=== PATIENT | female | born 1950 | race Caucasian/White ===

== ENCOUNTER 2019-07-23 08:39 | Emergency (ER) | payer MEDICARE, OTHER, SELFPAY ==
--- NOTE | 2019-07-23 08:40 | W.ED.FALL ---
HPI - Fall General: Chief Complaint: Fall Stated Complaint: fall-left hip pain Time Seen by Provider: 07/23/19 08:40 Source: patient and family Mode of arrival: ambulatory Limitations: no limitations History of Present Illness: HPI Narrative: Patient is a 69-year-old female who presents to ED today with complaints of a slip and fall while going down a ramp earlier this morning; she states she injured her left hip; she had a total hip replacement in June of last year by Dr. Haile; patient denies any other injury sustained during the fall; she states she has not been able to be ambulatory since the event MD complaint: fall Onset (ago): hour(s) Fall from: standing Fall witnessed: no Place fall occurred: home Loss of consciousness: None Prolonged down time: no Symptoms prior to fall: none Context: tripped/slipped Location of injury: pelvis (L hip) Associated symptoms-after fall: Denies abdominal pain, chest pain, headache(s), lightheadedness or neck pain Review of Systems Card: Denies: chest pain, palpitations, lightheadedness, syncope or pre-syncope Resp: Denies: shortness of breath GI: Denies: abdominal pain, nausea or vomiting Musc: Reports: joint pain (L hip) and limited range of motion (L hip); Denies: neck pain, back pain, extremity pain, extremity swelling, joint swelling, redness, joint warmth, joint stiffness or muscle weakness Neuro: Denies: headache, numbness in extremities, weakness in extremities or changes in sensation PFSH ED PFSH: Statuses (acute, chronic, etc) shown below reflect problem list status as previously entered and may not be historically accurate Social History Smoking and tobacco status: never smoked Physical Exam Const: COMMON NORMALS: no apparent distress, oriented x3, no limitations, alert and well nourished Neck/C-Spine: COMMON NORMALS: full ROM CERVICAL SPINE: No pain with cervical ROM and No cervical spine tenderness Resp: COMMON NORMALS: normal respiratory effort and clear to auscultation bilaterally AUSCULTATION: clear to auscultation bilaterally Cardio: COMMON NORMALS: regular rate and regular rhythm RATE: regular rate RHYTHM: regular rhythm Extremity: OTHER: pt has tenderness to lateral/posterior L hip; she is able to raise leg off table a few inches; leg is not shortened or rotated; NV intact; no other extremities injured Neuro: COMMON NORMALS: oriented x3 SENSORIUM/ORIENTATION: Yes alert Course Vital Signs: Vital signs: Vital Signs Temperature 97.6 F 07/23/19 08:45 Pulse Rate 76 07/23/19 10:09 Respiratory Rate 18 07/23/19 10:09 Blood Pressure 134/70 07/23/19 10:09 Pulse Oximetry 98 07/23/19 10:09 MDM - Fall MDM Narrative: Medical decision making narrative: I reviewed patient's left hip and pelvis x-ray and compared them to previous and I did not visualize any fractures thus to discharge the patient home; she was ambulatory with a walker upon discharge; after later review the [facility] radiologist read her film as a possible acute nondisplaced fracture through the left hip greater trochanter; I had Dr. Connelly look at the films who also does not see any acute changes from her previous films; I contacted the [facility] radiologist directly who stated he did not have access to those previous films we were viewing thus they were sent to him and he still felt that there was a faint radiolucent line across the greater trochanter which was not present previously-questioned recent fracture versus overlying fat plane and recommended CT scan. Dr. Gudino was cash applications coordinator for orthopedics who also did patient's hip replacement so I contacted her. She said even if the fracture was present, as long as she was ambulatory with a walker there was not anything they were going to do differently as far as management. Did not recommend we call patient back for CT scan. Said she will follow-up with her next week in office. Discharge Plan Discharge Patient Disposition: Home, Self-Care Clinical Impression: Contusion of hip, left Qualifiers: Encounter type: initial encounter Qualified Code(s): S70.02XA - Contusion of left hip, initial encounter Condition: Stable Prescriptions: New hydrocodone-acetaminophen 5-325 mg tablet 1 tab PO Q8H PRN (Reason: pain) Qty: 14 RF: 0 Discharge Orders: Discharge Order (Routine); Ordered 07/23/19 Ordered By: Vesta Boykin Referrals: Mihaela Miguel MD [Primary Care Provider] - Discharge Activity: Increase activity as tolerated and Use walker/crutches as instructed Activity Restrictions/Additional Instructions: Use walker for ambulation over the next 3-5 days or as needed for pain. You may follow up with Dr. Haile next week if pain persists. Discharge Date/Time: 07/23/19 10:10 Coding Level of Care Code ED [employer] Salesperson for Chg Fwd Exam Problem Focused
[2019-07-23 08:45] VITALS: BP 144/76; PULSE 65; RESP 20; TEMP 36.4; O2SAT 96; BMI 41.1
[2019-07-23 08:59] VITALS: BP 137/102; PULSE 65; RESP 18; O2SAT 98
--- NOTE | 2019-07-23 09:02 | PC.NURSE ---
Pt states 0800 she was going to her car to start it and slipped and fell injuring her L hip. Pt has a history of a hip injury and replacement to L hip. no crepitus noted, but pt unable to bear weight. Pt has no shorting or rotation of the LLE. Pulse present in her foor.
--- NOTE | 2019-07-23 09:03 | XRR_ITS ---
PROCEDURE INFORMATION: Exam: XR Left Hip with Pelvis when Performed Exam date and time: 07/23/2019 9:20 AM Age: 69 years old Clinical indication: Injury or trauma; Fall; Initial encounter; Abrasion; Left; Hip; Prior surgery; Surgery date: 6+ months; Additional info: Fall/pain TECHNIQUE: Imaging protocol: XR Left hip with pelvis when performed. Views: 2 or 3 views. COMPARISON: CR Pelvis AP 1 or 2 views* [id number] 07/07/2018 10:05 AM FINDINGS: Bones/joints: Stable left total hip replacement. Moderate to severe multilevel spine degenerative changes including degenerative disc disease, spondylosis and facet degenerative changes. Possible acute nondisplaced fracture through the left hip greater trochanter. Soft tissues: Unremarkable. Organs: Possible previous bladder suspension surgery. Other findings: Levoscoliosis. XR/XR hip LT 2-3V wo/w pel* [id number] IMPRESSION: 1. Stable left total hip replacement. 2. Possible acute nondisplaced fracture through the left hip greater trochanter.
[2019-07-23 09:35] VITALS: BP 134/70; PULSE 134; RESP 18; O2SAT 96
[2019-07-23 10:09] VITALS: BP 134/70; PULSE 76; RESP 18; O2SAT 98
--- NOTE | 2019-07-25 14:14 | DCPLANNER ---
manager drug had message to schedule a follow up appointment for patient with ortho. manager drug called the ortho clinic, spoke with Pat, gave clinic patients information. manager drug was told that patients information would be printed and reviewed. Clinic will call hospice case manager and patient with appointment information.
== END 2019-07-23 10:10 | disposition home or self-care (01) ==
PROVIDERS: Emergency Provider Physician Assistant; Family Provider Family Medicine; PCP Family Medicine
DX: S70.02XA Contusion of left hip, initial encounter (principal); W01.0XXA Fall on same level from slipping, tripping and stumbling without subsequent striking against object, initial encounter; Y92.009 Unspecified place in unspecified non-institutional (private) residence as the place of occurrence of the external cause; Z96.649 Presence of unspecified artificial hip joint
CPT/HCPCS: 73502; 99281; 99282

== ENCOUNTER → 2019-08-01 16:03 | Outpatient (BNVA) | payer MEDICARE, OTHER, SELFPAY | PROVIDERS: Family Provider Family Medicine; PCP Family Medicine; Referring Provider Physician Assistant; Visit Provider Specialist | DX: M25.552 Pain in left hip (principal) | CPT/HCPCS: 73502 ==

== ENCOUNTER → 2019-08-15 08:49 | Outpatient (BNVA) | payer MEDICARE, OTHER, SELFPAY | PROVIDERS: Family Provider Family Medicine; PCP Family Medicine; Visit Provider Internal Medicine Rheumatology | DX: M05.79 Rheumatoid arthritis with rheumatoid factor of multiple sites without organ or systems involvement (principal); Z79.899 Other long term (current) drug therapy; X58.XXXA Exposure to other specified factors, initial encounter; M81.0 Age-related osteoporosis without current pathological fracture; S72.115A Nondisplaced fracture of greater trochanter of left femur, initial encounter for closed fracture; Z79.52 Long term (current) use of systemic steroids; M05.9 Rheumatoid arthritis with rheumatoid factor, unspecified; M19.041 Primary osteoarthritis, right hand | CPT/HCPCS: 36415; 73130; 73630; 77080; 80076; 82306; 82565; 85025; 85651; 86140; 99214 ==

== ENCOUNTER → 2019-08-15 09:37 | Outpatient (BNVA) | payer MEDICARE, OTHER, SELFPAY | PROVIDERS: Family Provider Family Medicine; PCP Family Medicine; Visit Provider Internal Medicine Rheumatology | DX: Z79.899 Other long term (current) drug therapy (principal); M81.0 Age-related osteoporosis without current pathological fracture; M05.79 Rheumatoid arthritis with rheumatoid factor of multiple sites without organ or systems involvement; S72.115A Nondisplaced fracture of greater trochanter of left femur, initial encounter for closed fracture; X58.XXXA Exposure to other specified factors, initial encounter; M19.071 Primary osteoarthritis, right ankle and foot; M19.072 Primary osteoarthritis, left ankle and foot | CPT/HCPCS: 85025 ==

== ENCOUNTER 2019-08-15 10:04 | Outpatient (CLI) | payer MEDICARE, OTHER, SELFPAY ==
--- NOTE | 2019-08-15 10:26 | XR_ITS ---
WS: [id number] RIGHT HAND: 3 VIEW(S) TECHNIQUE: PA, oblique and lateral. HISTORY: arthritis COMPARISON: 12/28/2015 No acute fracture or dislocation. Very minimal narrowing of the interphalangeal joints. No subluxation. No erosions at the metacarpal h irineo or ulnar styloid. Slight volume loss in the lunate is similar to the prior study was cystic areas. Joint space narrowin g between the scaphoid, trapezium and trapezoid. XR/XR hand RT min 3V* [id number] IMPRESSION: Mild osteoarthritis.
--- NOTE | 2019-08-15 10:26 | XR_ITS ---
WS: [id number] DEXA (DUAL ENERGY X-RAY ABSORPTIOMETRY) Bone mineral density was performed using a [employer] machine. HISTORY: osteoporosis COMPARISON: None available. Lumbar spine BMD (L1-L4): 1.010 g/cm2 T score: -1.4 Z score: -0.9 Total hip BMD: Right: 0.838. T score: -1.3 Z score: -0.7 Left forearm BMD: 0.877 g/cm2. T score: 0.0 Z score: 1.7 10 year probability of a major osteoporotic fracture is 26%. XR/XR DEXA axial skeleton* [id number] IMPRESSION: OSTEOPENIA based upon the WHO classification for females.
--- NOTE | 2019-08-15 10:26 | XR_ITS ---
WS: [id number] LEFT FOOT: 3 VIEW(S) TECHNIQUE: PA, oblique and lateral. HISTORY: Rheumatoid arthritis. COMPARISON: 12/28/2015 Mild narrowing of the first metatarsophalangeal joint. No erosions at the metatarsal heads or subluxa tion. No significant osteopenia. No fracture. Normal tarsal/metatarsal alignment. No soft tissue abnormality or bone destruction. XR/XR foot LT min 3V* [id number] IMPRESSION: 1. No osseous erosions. 2. Mild degenerative changes at the first metatarsophalangeal joint.
--- NOTE | 2019-08-15 10:26 | XR_ITS ---
WS: [id number] LEFT HAND: 3 VIEW(S) TECHNIQUE: PA, oblique and lateral. HISTORY: arthritis COMPARISON: 12/28/2015 No acute fracture or dislocation. Mild interphalangeal joint space narrowing. No metacarpal head erosions. No erosion of the ulnar styl oid. XR/XR hand LT min 3V* [id number] IMPRESSION: No evidence for inflammatory arthropathy. Similar appearance of the hand as com pared to 12/28/2015.
--- NOTE | 2019-08-15 10:26 | XR_ITS ---
WS: [id number] RIGHT FOOT: 3 VIEW(S) TECHNIQUE: PA, oblique and lateral. HISTORY: arthritis COMPARISON: 12/28/2015 No acute fracture or dislocation. Normal tarsal/metatarsal alignment. Severe degenerative changes at the first metatarsophalangeal joint. Joint space narrowing with sclero sis and irregularity. Mild narrowing of the interphalangeal joints. No erosions at the metatarsal hea ds. XR/XR foot RT min 3V* [id number] IMPRESSION: Severe osteoarthritis at the first metatarsophalangeal joint with mild progress ion since 2015.
== END 2019-08-15 10:05 | disposition home or self-care (01) ==
LOC: RADWPI 10:09
PROVIDERS: Family Provider Family Medicine; PCP Family Medicine; Visit Provider Internal Medicine Rheumatology
DX: M05.9 Rheumatoid arthritis with rheumatoid factor, unspecified (principal); M81.0 Age-related osteoporosis without current pathological fracture; Z79.899 Other long term (current) drug therapy; M19.041 Primary osteoarthritis, right hand; M19.071 Primary osteoarthritis, right ankle and foot; M19.072 Primary osteoarthritis, left ankle and foot
CPT/HCPCS: 73130; 73630; 77080; 80076; 82306; 82565; 85651; 86140

== ENCOUNTER → 2019-08-29 13:22 | Outpatient (BNVA) | payer MEDICARE, OTHER, SELFPAY | PROVIDERS: Family Provider Family Medicine; PCP Family Medicine; Visit Provider Specialist | DX: S72.115A Nondisplaced fracture of greater trochanter of left femur, initial encounter for closed fracture (principal); X58.XXXA Exposure to other specified factors, initial encounter; Z96.641 Presence of right artificial hip joint | CPT/HCPCS: 73502 ==

== ENCOUNTER 2019-08-29 14:14 | Outpatient (CLI) | payer MEDICARE, OTHER, SELFPAY ==
[2019-08-29 15:02] LABS: Basophils # 0.1 10^3/uL (0.0-0.1); Eosinophils # 0.1 10^3/uL (0.0-0.8); Eosinophils % 1.6 %; Hematocrit 40.7 % (37.0-47.0); Hemoglobin 12.9 g/dL (11.5-15.3); Lymphocytes # 1.4 10^3/uL (0.8-4.8); Lymphocytes % 26.9 %; Mean Corpuscular HGB Conc 31.7 g/dL (30.0-36.0); Mean Corpuscular Hemoglobin 29.4 pg (28.0-34.0); Mean Corpuscular Volume 92.7 fL (81-99); Mean Platelet Volume 11.2 fL (7.4-10.4); Monocytes # 0.6 10^3/uL (0.2-0.9); Monocytes % 10.7 %; Neutrophils # 3.1 10^3/uL (1.8-7.7); Neutrophils % 59.8 %; Nucleated Red Blood Cells % 0 %; Platelet Count 154 10^3/cmm (130-400); Red Blood Count 4.39 10^6/uL (4.1-5.3); White Blood Count 5.2 10^3/uL (4.0-10.0)
[2019-08-29 15:18] LABS: 25 Hydroxy Vitamin D 26 ng/mL (30-100)
[2019-08-29 15:37] LABS: Creatinine Urine, Random 33 mg/dL (28-217)
[2019-08-29 15:41] LABS: Microalbum Creatinine Ratio Ur 30 mg/dL (0-20); Microalbumin Random Urine 1 ug/dL (0-20)
[2019-08-29 20:32] LABS: Parathyroid Hormone 48.9 pg/mL (15-65)
[2019-08-30 01:39] LABS: Albumin Level 4.3 g/dL (3.5-5.2); Anion Gap 20.4 (5-19); Blood Urea Nitrogen 31 mg/dL (8-23); Calcium 10.1 mg/dL (8.5-10.5); Carbon Dioxide 20 mmol/L (22-29); Chloride 106 mmol/L (98-107); Glomerular Filtration Rate 34.4 mL/min (90-130); Glucose 85 mg/dL (65-115); Phosphorus 4.1 mg/dL (2.5-4.5); Potassium 4.4 mmol/L (3.5-5.1); Sodium 142 mmol/L (136-145)
== END 2019-08-29 14:15 | disposition home or self-care (01) ==
LOC: LAB 14:15
PROVIDERS: Family Provider Family Medicine; PCP Family Medicine; Visit Provider Nurse Practitioner Family
DX: N18.3 Chronic kidney disease, stage 3 (moderate) (principal)
CPT/HCPCS: 80069; 82044; 82306; 82310; 83970; 85025

== ENCOUNTER → 2019-10-24 13:07 | Outpatient (BNVA) | payer MEDICARE, OTHER, SELFPAY | PROVIDERS: Family Provider Family Medicine; PCP Family Medicine; Visit Provider Internal Medicine Rheumatology | DX: M19.90 Unspecified osteoarthritis, unspecified site (principal); Z79.899 Other long term (current) drug therapy | CPT/HCPCS: 36415; 80076; 82565; 85025; 85651; 86140 ==

== ENCOUNTER → 2019-10-26 15:15 | Outpatient (BNVA) | payer MEDICARE, OTHER, SELFPAY | PROVIDERS: Family Provider Family Medicine; PCP Family Medicine; Visit Provider Specialist | DX: M25.559 Pain in unspecified hip (principal); S72.112A Displaced fracture of greater trochanter of left femur, initial encounter for closed fracture | CPT/HCPCS: 73502 ==

== ENCOUNTER → 2019-11-03 09:43 | Outpatient (BNVA) | payer MEDICARE, OTHER, SELFPAY | PROVIDERS: Family Provider Family Medicine; PCP Family Medicine; Visit Provider Internal Medicine Rheumatology | DX: M19.90 Unspecified osteoarthritis, unspecified site (principal); Z79.899 Other long term (current) drug therapy; N28.9 Disorder of kidney and ureter, unspecified; Z79.01 Long term (current) use of anticoagulants; Z85.3 Personal history of malignant neoplasm of breast; Z86.711 Personal history of pulmonary embolism; Z92.3 Personal history of irradiation | CPT/HCPCS: 36415; 82565; 85651; 86140; 86431; 99214 ==

== ENCOUNTER → 2020-01-31 09:52 | Outpatient (BNVA) | payer MEDICARE, OTHER, SELFPAY | PROVIDERS: Family Provider Family Medicine; PCP Family Medicine; Visit Provider Internal Medicine Rheumatology | DX: Z79.899 Other long term (current) drug therapy (principal) | CPT/HCPCS: 36415; 80076; 82565; 85025; 85651; 86140 ==

== ENCOUNTER → 2020-02-06 13:55 | Outpatient (BNVA) | payer MEDICARE, OTHER, SELFPAY | PROVIDERS: Family Provider Family Medicine; PCP Family Medicine; Visit Provider Internal Medicine Rheumatology | DX: M05.79 Rheumatoid arthritis with rheumatoid factor of multiple sites without organ or systems involvement (principal); Z79.899 Other long term (current) drug therapy; Z11.59 Encounter for screening for other viral diseases; Z11.1 Encounter for screening for respiratory tuberculosis; N18.9 Chronic kidney disease, unspecified; M85.80 Other specified disorders of bone density and structure, unspecified site; M19.90 Unspecified osteoarthritis, unspecified site; Z79.52 Long term (current) use of systemic steroids; Z85.3 Personal history of malignant neoplasm of breast | CPT/HCPCS: 36415; 86480; 86704; 86803; 87340; 99214 ==

== ENCOUNTER 2020-02-09 13:50 | Outpatient (CLI) | payer MEDICARE, OTHER, SELFPAY ==
--- NOTE | 2020-02-09 13:59 | MM_ITS ---
WS: [id number] BILATERAL DIAGNOSTIC DIGITAL MAMMOGRAM WITH CAD HISTORY: HX OF BREAST CA COMPARISON: 09/30/2018 and 03/23/2017 Bilateral CC and MLO views submitted. Computer aided detection analyzed. Breast composition: The breasts are heterogeneously dense, which may obscure small masses. No suspici ous masses, microcalcifications or architectural distortion. Biopsy cavity upper outer quadrant of th e RIGHT breast with no recurrent mass. There is architectural distortion and mild trabecular thickeni ng from the surgery and possible radiation treatment. No adverse changes. Benign calcifications LEFT breast. IMPRESSION: MM/[place] [id number] BI-RADS: 2-Benign FOLLOW UP: 1 Year Follow-up
== END 2020-02-09 13:51 | disposition home or self-care (01) ==
LOC: ONCMED 13:55
PROVIDERS: Absent Provider Internal Medicine Hematology & Oncology; PCP Family Medicine; Visit Provider Internal Medicine Medical Oncology
DX: Z85.3 Personal history of malignant neoplasm of breast (principal)
CPT/HCPCS: 77066

== ENCOUNTER 2020-02-28 10:43 | Outpatient (CLI) | payer MEDICARE, OTHER, SELFPAY ==
--- NOTE | 2020-02-28 10:49 | MR_ITS ---
WS: [id number] MRI NECK with and without CONTRAST. COMPARISON: PET CT 11/26/2019. CT 01/25/2018 Multiplanar, multisequence imaging is performed with and without contrast. Patient is status post RIGHT parotidectomy. Fat graft in the region of the RIGHT parotid bed. Seen be st on the post axial images is an area of enhancement posterior to the RIGHT mandibular condyle. This soft tissue enhancement measures 2.0 x 1.0 cm and is infiltrating the soft tissues of the RIGHT paro tid bed. Soft tissue enhancement extends into the far lateral RIGHT parapharyngeal fat. There is mild enhancement at the tongue base but this is bilateral and symmetric. No adenopathy is id entified. LEFT parotid and submandibular glands are normal. MR/MR orbit face neck wo/w* [id number] IMPRESSION: 1. Status post RIGHT parotidectomy as per history. Fat graft placement at the site of the surgery. 2. There is an infiltrating area of enhancement in the RIGHT parotid bed poste rior to the mandibular condyle. No similar enhancement in the LEFT neck or paro tid gland. Cannot exclude recurrent infiltrating neoplasm. PET/CT imaging perfo [facility] in November 2019 was negative for recurrent disease. Repeat PET/CT imaging may be necessary.
== END 2020-02-28 10:44 | disposition home or self-care (01) ==
LOC: RADWPI 10:46
PROVIDERS: Family Provider Family Medicine; PCP Family Medicine; Visit Provider Specialist
DX: R22.1 Localized swelling, mass and lump, neck (principal)
CPT/HCPCS: 70543; A9579

== ENCOUNTER → 2020-03-08 13:46 | Outpatient (BNVA) | payer MEDICARE, OTHER, SELFPAY | PROVIDERS: Family Provider Family Medicine; PCP Family Medicine; Visit Provider Internal Medicine Rheumatology | DX: Z79.899 Other long term (current) drug therapy (principal); Z11.1 Encounter for screening for respiratory tuberculosis | CPT/HCPCS: 36415; 86480 ==

== ENCOUNTER → 2020-05-01 13:52 | Outpatient (BNVA) | payer MEDICARE, OTHER, SELFPAY | PROVIDERS: Family Provider Family Medicine; PCP Family Medicine; Visit Provider Internal Medicine Rheumatology | DX: M05.79 Rheumatoid arthritis with rheumatoid factor of multiple sites without organ or systems involvement (principal); S72.115A Nondisplaced fracture of greater trochanter of left femur, initial encounter for closed fracture; W19.XXXA Unspecified fall, initial encounter; I26.99 Other pulmonary embolism without acute cor pulmonale; N18.31 Chronic kidney disease, stage 3a; M85.80 Other specified disorders of bone density and structure, unspecified site; M19.90 Unspecified osteoarthritis, unspecified site; Z79.899 Other long term (current) drug therapy | CPT/HCPCS: 99214 ==

== ENCOUNTER 2020-06-12 10:38 | Outpatient (CLI) | payer MEDICARE, OTHER, SELFPAY | END 2020-06-12 10:39 | disposition home or self-care (01) | LOC: LAB 10:41 | PROVIDERS: PCP Family Medicine; Visit Provider Internal Medicine | DX: K52.9 Noninfective gastroenteritis and colitis, unspecified (principal) | CPT/HCPCS: 36415; 84443 ==

== ENCOUNTER → 2020-06-25 11:06 | Outpatient (BNVA) | payer MEDICARE, OTHER, SELFPAY | PROVIDERS: PCP Family Medicine; Visit Provider Internal Medicine | DX: Z20.828 Contact with and (suspected) exposure to other viral communicable diseases (principal) | CPT/HCPCS: 87635 ==

== ENCOUNTER 2020-06-29 09:13 | Day surgery (SDC) | payer MEDICARE, OTHER, SELFPAY ==
[2020-06-27 13:53] VITALS: BMI 41.1
--- NOTE | 2020-06-29 09:24 | P.HP_ITS ---
Same Day Surgery H&P Indication for Procedure/HPI DATE OF PROCEDURE: June 29, 2020 CHIEF COMPLAINT/INDICATIONFOR SURGICAL PROCEDURE: Chronic diarrhea PREOP DIAGNOSIS: biju PLANNED PROCEDRUE: Operation Date: 06/29/20 10:15 Proposed Procedures p EGD [id number] k52.9(Not Applicable) - Hunter Humphrey MD s Colonoscopy(Not Applicable) - Hunter Humphrey MD Medications/Allergies* Home Medications Medication Instructions Recorded Confirmed Type furosemide 20 mg tablet 20 mg PO DAILY 08/11/19 06/27/20 History lisinopril 10 mg tablet 10 mg PO DAILY 08/11/19 06/27/20 History metoprolol tartrate 100 mg tablet 100 mg PO BID 08/11/19 06/27/20 History apixaban 5 mg tablet 5 mg PO BID 08/15/19 06/27/20 History omega 5-lxq-krv-fish oil 300 1 cap PO DAILY 08/15/19 06/27/20 History mg-1,000 mg capsule pantoprazole 40 mg tablet,delayed 40 mg PO DAILY 08/15/19 06/27/20 History release potassium chloride 20 mEq 20 meq PO DAILY 08/15/19 06/27/20 History tablet,extended release cholecalciferol (vitamin D3) 50 50 mcg PO DAILY 04/11/20 06/27/20 History mcg (2,000 unit) capsule doxylamine succinate 25 mg tablet 25 mg PO BEDTIME PRN 04/11/20 06/27/20 History pregabalin 200 mg capsule 200 mg PO BEDTIME 06/12/20 06/27/20 History acetaminophen 1,000 mg PO Q6H PRN 06/27/20 06/27/20 History capsaicin See Rx Instructions TOPICAL TID PRN 06/27/20 06/27/20 History diphenoxylate-atropine 1 tab PO QID PRN 06/27/20 06/27/20 History levothyroxine [Synthroid] 100 mcg PO DAILY 06/27/20 06/27/20 History vitamin E 400 unit PO BID 06/27/20 06/27/20 History Allergies/Adverse Reactions Allergy/AdvReac Type Severity Reaction Status Date / Time azithromycin [From Zithromax] Allergy ADR-Hyperte Verified 06/12/20 09:31 nsion duloxetine [From Cymbalta] Allergy PT states Verified 06/12/20 09:31 she felt like she was having mini seizures leflunomide Allergy numbness Verified 06/12/20 09:31 and tingling of feet naproxen Allergy edema, Verified 06/12/20 09:31 itching nifedipine [From Procardia] Allergy ADR-Hyperte Verified 06/12/20 09:31 nsion hydrocodone [From Vicodin] AdvReac itching Verified 05/01/20 14:27 Pertinent History/Comorbid Conditions* Medical History (Updated 06/12/20 @ 10:06 by Hunter Humphrey MD) Benign essential hypertension Bilateral leg edema CKD (chronic kidney disease) Dr Toure is following up on this Elevated cholesterol High risk medication use History of hip fracture Hypotension Hypothyroidism Immunization counseling Mitral regurgitation Osteoarthritis Osteopenia Recurrent pulmonary embolism Rheumatoid arthritis Rheumatoid arthritis with rheumatoid factor Surgical History (Updated 08/15/19 @ 09:53 by Ascencion Gan MD) History of appendectomy History of hysterectomy History of parotid gland removal Family History (Updated 08/15/19 @ 09:34 by Vanessa Fong LPN) Arthritis COPD (chronic obstructive pulmonary disease) Cancer Hypertension Stroke Denies family history of Rheumatoid arthritis Lupus Social History Smoking and tobacco status: never smoked Alcohol intake: never History of recent travel: No Pertinent Exam Findings alert, oriented x 3, clear to auscultation bilaterally, regular rate & rhythm, operative site marked and procedure specific exam findings Recommendations Surgery/Procedure today Coding Level of Care Code Acute City Supervisor for Champ Ellis
[2020-06-29 09:36] VITALS: BP 136/75; PULSE 64; RESP 18; TEMP 36.1; O2SAT 97
[2020-06-29] MEDS: sodium chloride 0.9% 1,000 ML 30 ML IV (09:42)
--- NOTE | 2020-06-29 09:51 | ANES.PREANE2 ---
Pre-Anesthetic Assessment Pre-Anesthetic Assessment: Height/Weight: Height 1.55 m Weight 98.883 kg Temp Pulse Resp BP Pulse Ox 97.0 F L 64 18 136/75 97 06/29/20 09:36 06/29/20 09:36 06/29/20 09:36 06/29/20 09:36 06/29/20 09:36 Preop Diagnosis: diarrhea Proposed Procedure: Operation Date: 06/29/20 10:15 Proposed Procedures p EGD [id number] k52.9(Not Applicable) - Hunter Humphrey MD s Colonoscopy(Not Applicable) - Hunter Humphrey MD Familial anesthetic complications: None Was Beta Risa taken within 24 hours: Yes Last intake: Intake NPO > 8 hrs Last Liquid Date 06/28/20 Last Solid Date 06/27/20 Social: Social History: No alcohol and No tobacco Exam: Pre-Anes Outpt Exam: alert, oriented x 3, clear to auscultation bilaterally and regular rate & rhythm Airway: Cervical ROM: WNL MP: 3 Dentition: Chipped and Partials Pulmonary: Comments: reccurent PEs on eliquis - last took eliquis on the 2nd per surgical instructions CV/HEM: CV/HEM: HTN and Murmur (Mild to Mod MR) : : Chronic renal Insufficiency GI: GI: GERD Metabolic: Metabolic: Morbid obesity and Thyroid Musc/skel: Comments: RA and lupus on prednisone (2.5 mg) Anesthetic Plan: ASA status: 3 Anesthesia: MAC Risk of > 500 ml blood loss (7ml/kg in children): No Meds/Allergies Current Medications: Current Medications Generic Name Dose Route Start Last Admin Trade Name Freq PRN Reason Stop Dose Admin Sodium Chloride 1,000 mls @ 30 ml s/hr 06/29/20 09:30 06/29/20 09:42 Sodium Chloride 0.9% IV 06/30/20 09:29 30 mls/hr .Q24H JESSICA Administration PFSH Anesthesia PFSH: Medical History (Updated 06/12/20 @ 10:06 by Hunter Humphrey MD) Benign essential hypertension Bilateral leg edema CKD (chronic kidney disease) Dr Toure is following up on this Elevated cholesterol High risk medication use History of hip fracture Hypotension Hypothyroidism Immunization counseling Mitral regurgitation Osteoarthritis Osteopenia Recurrent pulmonary embolism Rheumatoid arthritis Rheumatoid arthritis with rheumatoid factor Surgical History (Updated 06/12/20 @ 09:37 by Nancy Kumar LPN) History of appendectomy History of hysterectomy History of parotid gland removal Family History Other Arthritis COPD (chronic obstructive pulmonary disease) Cancer Hypertension Stroke Denies family history of Rheumatoid arthritis Lupus Social History Smoking and tobacco status: never smoked Alcohol intake: never History of recent travel: No Data Anesthesia Cardiac Studies: No Data to Display
[2020-06-29 11:30] VITALS: BP 106/64; PULSE 66; RESP 20; TEMP 36.3; O2SAT 94
[2020-06-29 11:45] VITALS: BP 123/77; PULSE 60; RESP 18; TEMP 36.4; O2SAT 98
--- NOTE | 2020-06-29 16:25 | ANE.PACU2 ---
Inpatient post-anesthesia follow up: Airway intact: Yes Vital signs: Temperature 97.5 F Pulse Rate 60 Respiratory Rate 18 Blood Pressure 123/77 Pulse Oximetry 98 Oxygen Delivery Me thod Room Air Oxygen Flow Rate 4 Fraction of Inspir ed Oxygen Hydration adequate: Yes Nausea and vomiting: No Pain level: 1 Mental status: Baseline
[2020-07-02 07:32] LABS: H. Pylori / CLO Test Negative
== END 2020-06-29 12:45 | disposition home or self-care (01) ==
PROVIDERS: PCP Family Medicine; Visit Provider Internal Medicine
PROC: 0DJ08ZZ Inspection of Upper Intestinal Tract, Via Natural or Artificial Opening Endoscopic (ICD-10-PCS; CPT 43235; principal; 2020-06-29 10:15)
PROC: 0DJD8ZZ Inspection of Lower Intestinal Tract, Via Natural or Artificial Opening Endoscopic (ICD-10-PCS; CPT 45378; 2020-06-29 10:15)
DX: K52.9 Noninfective gastroenteritis and colitis, unspecified (principal); K21.00 Gastro-esophageal reflux disease with esophagitis, without bleeding; K29.70 Gastritis, unspecified, without bleeding; D12.2 Benign neoplasm of ascending colon; E03.9 Hypothyroidism, unspecified; M19.90 Unspecified osteoarthritis, unspecified site; M06.9 Rheumatoid arthritis, unspecified; I12.9 Hypertensive chronic kidney disease with stage 1 through stage 4 chronic kidney disease, or unspecified chronic kidney disease; N18.9 Chronic kidney disease, unspecified; Z86.711 Personal history of pulmonary embolism; Z79.01 Long term (current) use of anticoagulants; E66.01 Morbid (severe) obesity due to excess calories; Z68.41 Body mass index [BMI] 40.0-44.9, adult
CPT/HCPCS: 12345; 43239; 45385; 82274; 83630; 87046; 87077; 87493; 88305; J2704; J7030

== ENCOUNTER 2020-07-05 10:50 | Outpatient (CLI) | payer MEDICARE, OTHER, SELFPAY | END 2020-07-05 10:51 | disposition home or self-care (01) | PROVIDERS: PCP Family Medicine; Visit Provider Internal Medicine | DX: K52.9 Noninfective gastroenteritis and colitis, unspecified (principal) | CPT/HCPCS: 87177; 87209 ==

== ENCOUNTER → 2020-09-12 12:45 | Outpatient (BNVA) | payer MEDICARE, OTHER, SELFPAY | PROVIDERS: PCP Family Medicine; Visit Provider Internal Medicine Rheumatology | DX: M05.79 Rheumatoid arthritis with rheumatoid factor of multiple sites without organ or systems involvement (principal); Z79.899 Other long term (current) drug therapy; M19.90 Unspecified osteoarthritis, unspecified site; M85.80 Other specified disorders of bone density and structure, unspecified site; I26.99 Other pulmonary embolism without acute cor pulmonale; N18.31 Chronic kidney disease, stage 3a; K29.70 Gastritis, unspecified, without bleeding; Z85.3 Personal history of malignant neoplasm of breast | CPT/HCPCS: 99214 ==

== ENCOUNTER 2021-02-15 08:47 | Outpatient (CLI) | payer MEDICARE, OTHER, SELFPAY ==
--- NOTE | 2021-02-15 08:54 | MM_ITS ---
WS: [id number] Exam: [place] [id number] Date/Time of Exam: 02/15/2021 9:17 AM Reason For Exam: HX OF BREAST CA VIEWS: MLO and CC views both breasts. Bilateral ML views are also included in this series. Comparison made with prior exam of 09/30/2018 and 02/09/2020. Findings: No sign of suspicious mass, tumor calcification or new architectural distortion. Stable postoperative changes in the right breast. Heterogeneously dense MM/[place] [id number] Impression: BI-RADS: 2-Benign FOLLOW-UP: 1 Year Follow-up This mammogram was also analyzed by the Computer Aided Detection System R2 Imag e Store Clerk Cashier.
== END 2021-02-15 08:48 | disposition home or self-care (01) ==
LOC: RADSHAW 08:52
PROVIDERS: PCP Family Medicine; Visit Provider Family Medicine
DX: Z85.3 Personal history of malignant neoplasm of breast (principal)
CPT/HCPCS: 77066

== ENCOUNTER → 2021-02-20 12:43 | Outpatient (BNVA) | payer MEDICARE, OTHER, SELFPAY | PROVIDERS: PCP Family Medicine; Visit Provider Internal Medicine Rheumatology | DX: M05.79 Rheumatoid arthritis with rheumatoid factor of multiple sites without organ or systems involvement (principal); M19.90 Unspecified osteoarthritis, unspecified site; Z79.899 Other long term (current) drug therapy; I26.99 Other pulmonary embolism without acute cor pulmonale; M85.80 Other specified disorders of bone density and structure, unspecified site; N18.31 Chronic kidney disease, stage 3a; K29.70 Gastritis, unspecified, without bleeding; Z79.01 Long term (current) use of anticoagulants; Z96.642 Presence of left artificial hip joint; Z92.3 Personal history of irradiation; Z85.3 Personal history of malignant neoplasm of breast; Z71.89 Other specified counseling | CPT/HCPCS: 99214 ==

== ENCOUNTER 2021-03-01 06:50 | Outpatient (CLI) | payer MEDICARE, OTHER, SELFPAY ==
--- NOTE | 2021-03-01 06:58 | US_ITS ---
WS: [id number] RENAL ULTRASOUND HISTORY: RIGHT FLANK PAIN COMPARISON: 06/07/2018 TECHNIQUE: 2-D and color Doppler imaging of the kidney submitted. Right kidney: 9.0 cm x 4.6 cm x 4.1 cm. Normal size kidney. Cortical thinning is new in the lower pole of the RIGHT kidney. No hydronephrosis or mass. Left kidney: 9.5 cm x 5.7 cm x 4.8 cm. Normal echogenicity with no hydronephrosis or mass. Aorta: Normal. Urinary Bladder: Nondistended. US/US renal BI* [id number] IMPRESSION: 1. Mild thinning of the cortex RIGHT lower pole. 2. No obstruction or mass.
== END 2021-03-01 06:51 | disposition home or self-care (01) ==
LOC: US 06:53
PROVIDERS: PCP Family Medicine; Visit Provider Registered Nurse
DX: R10.9 Unspecified abdominal pain (principal)
CPT/HCPCS: 76770

== ENCOUNTER 2021-06-07 15:07 | Outpatient (CLI) | payer MEDICARE, OTHER, SELFPAY ==
--- NOTE | 2021-06-07 15:19 | MR_ITS ---
WS: [id number] MRI NECK WITH CONTRAST TECHNIQUE: Noncontrast axial T1, axial T2 FSE fat sat, coronal T2 fat sat, coronal T1, coronal T1 fat sat, sagittal T2 fat sat, plus contrast enhanced coronal, sagittal, and axial T1 fat sat images obta ined. CLINICAL INFORMATION: MALIG NEOPLASM PAROTID GLAND;COUGH;SWELLING,MASS / LUMP NECK COMPARISON: MRI February 28, 2020 FINDINGS: Prior postoperative changes right parotidectomy. Previously described area of enhancement posterior t o the right condylar bed has resolved. Postoperative change fat necrosis in the right parotid bed lat erally is unchanged in appearance since February 28, 2020. This is FDG negative on the prior PET/CT. No evidence of residual or recurrent enhancing disease. Left parotid gland is normal in appearance. Normal parapharyngeal fat. Partially visualized paranasal sinuses are well aerated. Normal posterior fossa. Normal submandibular glands. No evidence of suprag lottic or glottic mass. Normal cervical spine. No significant central canal stenosis. IMPRESSION: 1. Prior postoperative changes right parotidectomy with fat graft right parotid gland laterally unch anged. 2. Previously described enhancing soft tissue posterior to the right mandibular condyle is resolved. No evidence of recurrent or progressive disease. 3. Normal left parotid gland and submandibular glands. 4. No cervical lymphadenopathy.
[2021-06-07 16:23] LABS: Blood Urea Nitrogen 19 mg/dL (8-23); Glomerular Filtration Rate 40.5 mL/min (90-130)
== END 2021-06-07 15:08 | disposition home or self-care (01) ==
LOC: RADSHAW 15:18
PROVIDERS: PCP Family Medicine; Visit Provider Specialist
DX: C07 Malignant neoplasm of parotid gland (principal); R05.9 Cough, unspecified; R22.1 Localized swelling, mass and lump, neck
CPT/HCPCS: 70543; 82565; 84520; A9579

== ENCOUNTER → 2021-06-24 13:04 | Outpatient (BNVA) | payer MEDICARE, OTHER, SELFPAY | PROVIDERS: PCP Family Medicine; Visit Provider Internal Medicine Rheumatology | DX: M05.79 Rheumatoid arthritis with rheumatoid factor of multiple sites without organ or systems involvement (principal); Z79.899 Other long term (current) drug therapy; N18.31 Chronic kidney disease, stage 3a; M19.90 Unspecified osteoarthritis, unspecified site; M85.80 Other specified disorders of bone density and structure, unspecified site; Z96.642 Presence of left artificial hip joint; Z86.711 Personal history of pulmonary embolism; Z79.01 Long term (current) use of anticoagulants; Z85.3 Personal history of malignant neoplasm of breast; Z92.3 Personal history of irradiation; Z71.89 Other specified counseling | CPT/HCPCS: 99214 ==

== ENCOUNTER → 2021-08-21 15:07 | Outpatient (BNVA) | payer MEDICARE, OTHER, SELFPAY | PROVIDERS: PCP Family Medicine; Visit Provider Internal Medicine Cardiovascular Disease | DX: M05.89 Other rheumatoid arthritis with rheumatoid factor of multiple sites (principal); R60.0 Localized edema; I34.0 Nonrheumatic mitral (valve) insufficiency; I26.99 Other pulmonary embolism without acute cor pulmonale; N18.31 Chronic kidney disease, stage 3a | CPT/HCPCS: 99214 ==

== ENCOUNTER → 2021-10-21 13:28 | Outpatient (BNVA) | payer MEDICARE, OTHER, SELFPAY | PROVIDERS: PCP Family Medicine; Visit Provider Internal Medicine Rheumatology | DX: M05.79 Rheumatoid arthritis with rheumatoid factor of multiple sites without organ or systems involvement (principal); Z79.899 Other long term (current) drug therapy; M85.80 Other specified disorders of bone density and structure, unspecified site; N18.31 Chronic kidney disease, stage 3a; M19.90 Unspecified osteoarthritis, unspecified site; Z85.3 Personal history of malignant neoplasm of breast; Z92.3 Personal history of irradiation; Z86.711 Personal history of pulmonary embolism; Z79.01 Long term (current) use of anticoagulants; Z96.642 Presence of left artificial hip joint; Z71.89 Other specified counseling | CPT/HCPCS: 99214 ==

== ENCOUNTER → 2022-02-18 12:51 | Outpatient (BNVA) | payer MEDICARE, OTHER, SELFPAY | PROVIDERS: PCP Family Medicine; Visit Provider Internal Medicine Rheumatology | DX: M05.79 Rheumatoid arthritis with rheumatoid factor of multiple sites without organ or systems involvement (principal); Z79.899 Other long term (current) drug therapy; Z71.89 Other specified counseling; N18.31 Chronic kidney disease, stage 3a; M19.90 Unspecified osteoarthritis, unspecified site; M85.80 Other specified disorders of bone density and structure, unspecified site; Z79.01 Long term (current) use of anticoagulants; Z96.642 Presence of left artificial hip joint; Z92.3 Personal history of irradiation; Z85.3 Personal history of malignant neoplasm of breast | CPT/HCPCS: 99214 ==

== ENCOUNTER 2022-03-13 09:06 | Outpatient (CLI) | payer MEDICARE, OTHER, SELFPAY ==
--- NOTE | 2022-03-13 09:24 | MM_ITS ---
WS: [id number] Bilateral diagnostic 3D tomosynthesis digital mammogram, 03/13/2022 Clinical Data: HX OF BREAST CA Comparison: 02/15/2021, 02/09/2020, 09/30/2018, 11/05/2017, 10/21/2017, 09/22/2017, 04/15/2017, 03/23/2017, 03/2015, 11/16/2008. Findings: No spiculated masses or clustered calcifications are seen. There are postoperative changes in the upp er outer quadrant of the right breast which are stable. There are benign calcifications throughout daniela th breasts. There are mole markers on the left breast. MM/[place] [id number] Impression: 1. Negative bilateral mammograms unchanged. 2. Recommend annual mammograms. BIRADS: 2-Benign FOLLOW UP: 1 Year Follow-up The CAD piece work checker was used.
== END 2022-03-13 09:07 | disposition home or self-care (01) ==
LOC: RAD 09:06
PROVIDERS: PCP Family Medicine; Visit Provider Family Medicine
DX: Z85.3 Personal history of malignant neoplasm of breast (principal)
CPT/HCPCS: 77062

== ENCOUNTER 2022-06-09 08:33 | Emergency (ER) | payer MEDICARE, OTHER, SELFPAY ==
[2022-06-09 08:40] VITALS: BP 129/86; PULSE 67; RESP 17; TEMP 36.4; O2SAT 99; BMI 41.3
--- NOTE | 2022-06-09 08:51 | XR_ITS ---
WS: [id number] Exam: XR chest 1V portable [id number] Date/Time of Exam: 06/09/2022 8:59 AM Reason For Exam: cough; covid + 10 days ago Comparison 04/10/2019. The lungs are fully inflated and clear. Normal cardiomediastinal silhouette and regional bony element s. Numerous surgical clips in the upper abdomen. XR/XR chest 1V portable [id number] IMPRESSION: 1. Negative chest.
--- NOTE | 2022-06-09 09:00 | W.ED.SOB ---
HPI - SOB/Dyspnea General: Chief Complaint: General Medical Stated Complaint: cough, n/v/d, covid+ on the 9th Time Seen by Provider: 06/09/22 08:35 Source: patient Mode of arrival: ambulatory Limitations: no limitations History of Present Illness: HPI Narrative: Patient is a nice 71-year-old female presents to ED today with a complaint of cough and shortness of breath. Patient tells me on 05/30 she was diagnosed with COVID. She states at that time she was having a mild cough, body aches, and short of breath. She was placed on a 5-day course of Paxlovid which she completed. Patient states she did seem to improve but states last night she began having a cough and shortness of breath again. He feels like her shortness of breath currently is worse than when she was first diagnosed with COVID and questions whether she has developed pneumonia. She was seen at [facility] urgent care yesterday and diagnosed with bronchitis. Patient does complain of substernal chest pressure with no radiation of her discomfort. No hemoptysis. Patient states she does have a history of pulmonary embolism. She currently takes Eliquis and has not missed any doses of this recently. Does not complain of lower extremity pain, swelling, or redness. MD elicited complaint: shortness of breath, cough and chest pain Pertinent past history: PE and other (COVID) Onset (ago): day(s) (worsening yesterday) Context: recent illness (COVID) Timing: constant Severity: moderate Exacerbating factors: exertion Relieving factors: nothing Known history of: PE Associated symptoms: Reports chest congestion and chest pain (pressure); Deny abdominal pain, dizziness, extremity pain, fever(s), hemoptysis, lightheadedness, nausea, palpitations, syncope or vomiting Treatment prior to arrival: other (finished course of Paxlovid ) Related Data: Home oxygen amount: none Review of Systems Const: Reports: body aches and fatigue; Denies: fever(s) or chills Eyes: Denies: change in vision, blurry vision or photophobia ENMT: Denies: throat pain, odynophagia, ear or mastoid pain, nasal discharge, nasal congestion, post nasal drip or sinus pain Card: Reports: chest pain (pressure) and dyspnea on exertion; Denies: palpitations, irregular heart rhythm, edema, swelling of feet/ankles, lightheadedness, syncope or pre-syncope Resp: Reports: dyspnea, non-productive cough and chest congestion; Denies: wheezing or hemoptysis GI: Reports: diarrhea; Denies: abdominal pain, nausea or vomiting : Denies: flank pain or dysuria Musc: Denies: neck pain, back pain, extremity pain or joint pain Skin/Breast: Denies: rash Neuro: Denies: headache(s), numbness in extremities, weakness in extremities, sensory changes or dizziness PFSH ED PFSH: Medical History Benign essential hypertension Bilateral leg edema CKD (chronic kidney disease) Dr Toure is following up on this Elevated cholesterol High risk medication use History of hip fracture Hypotension Hypothyroidism Immunization counseling Mitral regurgitation Osteoarthritis Osteopenia Recurrent pulmonary embolism Rheumatoid arthritis Rheumatoid arthritis with rheumatoid factor Surgical History History of appendectomy History of hip replacement History of hysterectomy History of parotid gland removal Family History Father CAD (coronary artery disease), Onset Age: 40 Lung disease Cancer Brother Cancer Stroke Grandmother Cancer Family/Other Cancer Mother Stroke Sister CAD (coronary artery disease), Onset Age: 55 ID Other Arthritis COPD (chronic obstructive pulmonary disease) Hypertension Denies family history of Rheumatoid arthritis Diabetes Lupus Clotting disorder Dementia Chronic kidney disease (CKD) Suicide Anesthesia complication Bleeding disorder Social History Smoking and tobacco status: never smoked Alcohol intake: never History of recent travel: No Physical Exam Const: COMMON NORMALS: no acute distress, patient oriented x3, no limitations and alert GENERAL APPEARANCE: cooperative NUTRITIONAL APPEARANCE: obese morbidly obese ORIENTATION/CONSCIOUSNESS: Yes awake, Yes oriented to person, Yes oriented to place and Yes oriented to time HENMT: COMMON NORMALS: normocephalic and atraumatic HEAD & SCALP: normal to inspection, normocephalic and atraumatic FACE & SINUS: normal facial exam Neck/C-Spine: COMMON NORMALS: full ROM, no lymphadenopathy and no JVD Chest: COMMONS NORMALS: normal inspection of the chest and normal palpation of entire chest wall Resp: COMMON NORMALS: clear to auscultation bilaterally EFFORT & INSPECTION: No grunting, No stridor, Yes Actively coughing, No retractions, No uses accessory muscles and Yes other (seems to get dyspneic with conversation) AUSCULTATION: clear to auscultation bilaterally Cardio: COMMON NORMALS: no JVD, regular rate and regular rhythm RATE: regular rate RHYTHM: regular rhythm GI: COMMON NORMALS: Normal to inspection, nondistended, normoactive bowel sounds present, Soft to palpation, non-tender, No hepatosplenomegaly present and no masses PALPATION: Yes Soft to palpation and Yes No hepatosplenomegaly present : COMMON NORMALS: Yes no CVA tenderness BLADDER/KIDNEY EXAM: Yes no CVA tenderness Back/Pelvis: COMMON NORMALS: no CVA tenderness Extremity: COMMON NORMALS: normal to inspection, capillary refill normal, no clubbing, cyanosis or edema, no calf tenderness and no pedal edema GENERAL: Yes normal exam except as noted Neuro: NIKA COMA SCALE: document GCS findings [place] coma scale eye opening: Spontaneous [place] coma scale verbal response: Orientated Nika coma scale motor response: Obey commands Nika coma scale total score: 15 COMMON NORMALS: patient oriented x3, moves all extremities, no focal motor deficits and no sensory deficits noted SENSORIUM/ORIENTATION: Yes alert, Yes oriented to person, Yes oriented to place and Yes oriented to time Skin: COMMON NORMALS: no rashes or lesions noted GENERAL SKIN EXAM: no rashes or lesions noted Course Vital Signs: Vital signs: Vital Signs Temperature 97.6 F 06/09/22 08:40 Pulse Rate 67 06/09/22 08:40 Respiratory Rate 17 06/09/22 08:40 Blood Pressure 129/86 06/09/22 08:40 Pulse Oximetry 99 06/09/22 08:40 Oxygen Delivery Me thod 06/09/22 08:40 MDM - SOB/Dyspnea Medical Decision Making Patient appears in no acute distress. Her vital signs are stable. She did complain of some chest pressure therefore cardiac work-up initiated. Her EKGs show no ischemic findings. Baseline troponin was 15 with a negative delta. BNP mildly elevated at 505. She has no clinical symptoms of fluid overload. CXR is normal. Based on physical exam and Wells criteria I have a low suspicion for a PE. Patient is already taking Eliquis. At this time I think symptoms are most likely still related to her COVID-19 diagnosis 10 days ago. Patient was given an albuterol inhaler and promethazine from urgent care yesterday for the cough. I think it is appropriate for her to continue these medications. Recommend she follow-up with Dr. Miguel the end of the week if she does not feel like she is improving. Strict return ED precautions given. Lab Data 06/09/22 09:15 06/09/22 09:15 Labs/Radiology: Radiology Impressions Chest X-Ray 06/09/22 08:51 IMPRESSION: 1. Negative chest. Laboratory Results WBC 5.4 10^3/uL (4.0-10.0) 06/09/22 09:15 RBC 4.21 10^6/uL (4.1-5.3) 06/09/22 09:15 Hgb 13.3 g/dL (11.5-15.3) 06/09/22 09:15 Hct 39.8 % (37.0-47.0) 06/09/22 09:15 MCV 94.5 fl (81-99) 06/09/22 09:15 MCH 31.6 pg (28.0-34.0) 06/09/22 09:15 MCHC 33.4 g/dL (30.0-36.0) 06/09/22 09:15 RDW 13.2 % (12.1-15.1) 06/09/22 09:15 Plt Count 126 10^3/cmm (130-400) L 06/09/22 09:15 MPV 10.7 fL (7.4-10.4) H 06/09/22 09:15 Neut % (Auto) 52.2 % 06/09/22 09:15 Lymph % (Auto) 28.9 % 06/09/22 09:15 Potter % (Auto) 17.2 % 06/09/22 09:15 Eos % (Auto) 0.7 % 06/09/22 09:15 Baso % (Auto) 0.6 % 06/09/22 09:15 Neut # (Auto) 2.82 10^3/uL (1.8-7.7) 06/09/22 09:15 Lymph # (Auto) 1.6 10^3/uL (0.8-4.8) 06/09/22 09:15 Potter # (Auto) 0.9 10^3/uL (0.2-0.9) 06/09/22 09:15 Eos # (Auto) 0.0 10^3/uL (0.0-0.8) 06/09/22 09:15 Baso # (Auto) 0.0 10^3/uL (0.0-0.1) 06/09/22 09:15 Nucleated RBC % (auto) 0 % 06/09/22 09:15 Nucleated RBCs # 0.0 /100WBC 06/09/22 09:15 Sodium 137 mmol/L (136-145) 06/09/22 09:15 Potassium 3.4 mmol/L (3.5-5.1) L 06/09/22 09:15 Chloride 100 mmol/L (98-107) 06/09/22 09:15 Carbon Dioxide 22 mmol/L (22-29) 06/09/22 09:15 Anion Gap 18.4 (5-19) 06/09/22 09:15 BUN 18 mg/dL (8-23) 06/09/22 09:15 Creatinine 1.3 mg/dL (0.5-0.9) H 06/09/22 09:15 GFR Calculation Not Reportable 06/09/22 09:15 Glucose 92 mg/dL (65-115) 06/09/22 09:15 Calculated Osmolality 286 mOsm/kg (285-295) 06/09/22 09:15 Calcium 9.1 mg/dL (8.5-10.5) 06/09/22 09:15 Total Bilirubin 0.5 mg/dL (0.15-1.2) 06/09/22 09:15 AST 37 U/L (0-32) H 06/09/22 09:15 ALT 41 U/L (0-33) H 06/09/22 09:15 Alkaline Phosphatase 80 U/L (35-105) 06/09/22 09:15 Troponin T Baseline 15 ng/L (0-10) H 06/09/22 09:15 Troponin T 120 Minute 14.28 ng/L (0-10) H 06/09/22 11:13 Delta Troponin T -0.72 ABS# (0-10) L 06/09/22 11:13 NT-Pro-B Natriuret Pep 505 pg/mL (0-125) H 06/09/22 09:15 Total Protein 6.5 g/dL (6.6-8.7) L 06/09/22 09:15 Albumin 3.9 g/dL (3.5-5.2) 06/09/22 09:15 Globulin 2.6 g/dL (1.3-4.6) 06/09/22 09:15 Discharge Plan Discharge Patient Disposition: Home Clinical Impression: COVID-19 Condition: Stable Prescriptions: No Action omega 3-ccj-ajd-fish oil [Fish Oil] 300-1,000 mg capsule 1 cap PO DAILY potassium chloride 20 mEq tablet extended release 20 meq PO DAILY (DME) Wheelchair Qty: 1 0RF Rx Instructions: As directed lisinopril 2.5 mg tablet 2.5 mg PO DAILY pregabalin [Lyrica] 200 mg capsule 200 mg PO BEDTIME red yeast rice 600 mg capsule 600 mg PO BID Rx Instructions: give with meal/snack prednisone 10 mg tablet See Rx Instructions PO .COMPLEX PRN (Reason: joint pain) Qty: 30 1RF Rx Instructions: take 1 or 2 tab daily for 3-7 days prn joint pain flare PO PRN; metoprolol tartrate 100 mg tablet 100 mg PO BID furosemide 20 mg tablet 20 mg PO DAILY cholecalciferol (vitamin D3) 50 mcg (2,000 unit) capsule 50 mcg PO DAILY Unisom (doxylamine) 25 mg tablet 25 mg PO BEDTIME PRN (Reason: Sleep) Humira Pen 40 mg/0.8 mL pen injector kit 40 mg SUBCUT Q14D Qty: 2 3RF prednisone 2.5 mg tablet 2.5 mg PO DAILY Qty: 90 1RF hydroxychloroquine 200 mg tablet See Rx Instructions PO DAILY Qty: 45 3RF Rx Instructions: alternate taking 1 tab today and then 2 tabs tomorrow. PO daily; Eliquis 5 mg tablet 5 mg PO BID Qty: 60 3RF levothyroxine [Synthroid] 100 mcg tablet 100 mcg PO DAILY acetaminophen 500 mg Capsule 1,000 mg PO Q6H PRN (Reason: Pain) vitamin E 400 unit Capsule 400 unit PO BID pantoprazole 40 mg tablet,delayed release (DR/EC) 40 mg PO BID Qty: 60 0RF Discharge Orders: Discharge ED (Routine); Ordered 06/09/22 Ordered By: Vesta Boykin Referrals: Mihaela Miguel MD [Primary Care Provider] - Coding Level of Care Code ED Student Activities Director for Chg Fwd Exam Comprehensive
[2022-06-09 09:38] LABS: Basophils % 0.6 %; Eosinophils % 0.7 %; Hematocrit 39.8 % (37.0-47.0); Hemoglobin 13.3 g/dL (11.5-15.3); Lymphocytes # 1.6 10^3/uL (0.8-4.8); Lymphocytes % 28.9 %; Mean Corpuscular HGB Conc 33.4 g/dL (30.0-36.0); Mean Corpuscular Hemoglobin 31.6 pg (28.0-34.0); Mean Corpuscular Volume 94.5 fl (81-99); Mean Platelet Volume 10.7 fL (7.4-10.4); Monocytes # 0.9 10^3/uL (0.2-0.9); Monocytes % 17.2 %; Neutrophils # 2.82 10^3/uL (1.8-7.7); Neutrophils % 52.2 %; Nucleated Red Blood Cells % 0 %; Platelet Count 126 10^3/cmm (130-400); Red Blood Count 4.21 10^6/uL (4.1-5.3); Red Cell Distribution Width 13.2 % (12.1-15.1); White Blood Count 5.4 10^3/uL (4.0-10.0)
[2022-06-09 09:58] LABS: Troponin(5th) Baseline 15 ng/L (0-10)
--- NOTE | 2022-06-09 10:00 | ECG_ITS ---
[facility] Test Date: 2022-06-09 Pat Name: Corina Vasques Department: Room: Gender: Female Video Journalist: : 1950 Requested By: Vesta Boykin Order Number: [id number] Emily MD: Dilip Dawkins M.D. Measurements Intervals [place] Rate: 63 P: 51 MO: 133 QRS: 23 QRSD: 75 T: 56 QT: 407 QTc: 418 Interpretive Statements SINUS RHYTHM NONSPECIFIC T-WAVE ABNORMALITY Compared to ECG 04/10/2019 12:03:00 T-wave abnormality now present Electronically Signed On 06-09-2022 19:48:20 TOUCH UP PAINTER HAND by Dilip Dawkins M.D. [id number]
[2022-06-09 10:08] LABS: Alanine Aminotransferase 41 U/L (0-33); Albumin Level 3.9 g/dL (3.5-5.2); Alkaline Phosphatase 80 U/L (35-105); Anion Gap 18.4 (5-19); Aspartate Amino Transferase 37 U/L (0-32); Blood Urea Nitrogen 18 mg/dL (8-23); Calcium 9.1 mg/dL (8.5-10.5); Carbon Dioxide 22 mmol/L (22-29); Chloride 100 mmol/L (98-107); Globulin 2.6 g/dL (1.3-4.6); Glucose 92 mg/dL (65-115); NT Pro B Type Natriuretic Pept 505 pg/mL (0-125); Osmolality Calculated 286 mOsm/kg (285-295); Potassium 3.4 mmol/L (3.5-5.1); Sodium 137 mmol/L (136-145); Total Bilirubin 0.5 mg/dL (0.15-1.2); Total Protein 6.5 g/dL (6.6-8.7)
--- NOTE | 2022-06-09 11:00 | ECG_ITS ---
[facility] Test Date: 2022-06-09 Pat Name: Corina Vasques Department: Room: Gender: Female Deep Fat Cook Fry: : 1950 Requested By: Vesta Boykin Order Number: [id number] Emily MD: Dilip Dawkins M.D. Measurements Intervals [place] Rate: 59 P: 57 RI: 139 QRS: 28 QRSD: 78 T: 87 QT: 420 QTc: 418 Interpretive Statements SINUS BRADYCARDIA NONSPECIFIC T-WAVE ABNORMALITY Compared to ECG 06/09/2022 10:00:31 Sinus rhythm no longer present T-wave abnormality still present Electronically Signed On 06-09-2022 19:49:34 GOVERNMENT RELATIONS DIRECTOR by Dilip Dawkins M.D. [id number]
[2022-06-09 11:35] LABS: Troponin 5 2HR 14.28 ng/L (0-10)
[2022-06-09 11:37] LABS: Troponin 5 2HR Delta -0.72 ABS# (0-10)
== END 2022-06-09 12:10 | disposition home or self-care (01) ==
PROVIDERS: Emergency Provider Physician Assistant; PCP Family Medicine
DX: U07.1 COVID-19 (principal); I10 Essential (primary) hypertension; E03.9 Hypothyroidism, unspecified
CPT/HCPCS: 71045; 80053; 83880; 84484; 85025; 93005; 99285

== ENCOUNTER 2022-06-17 07:10 | Outpatient (CLI) | payer MEDICARE, OTHER, SELFPAY ==
--- NOTE | 2022-06-17 07:23 | MR_ITS ---
WS: [id number] MRI BRAIN WITH HIGH-RESOLUTION IMAGING THROUGH THE INTERNAL AUDITORY CANALS WITHOUT AND WITH CONTRAST HISTORY: BENIGN PAROXYSMAL Vertigo, bilateral, status post RIGHT parotidectomy. COMPARISON: 06/07/2021 TECHNIQUE: Multiplanar, multisequence imaging is performed through the brain. Additional 3 mm imaging performed in multiple planes through the internal auditory canal. Postcontrast imaging with 20 ml's of MultiHance. Imaging quality is degraded by motion artifact. Patient was unable to remain still for several of the sequences towards the end of the examination. No acute intracranial hemorrhage, midline shift, edema or mass effect. Mild to moderate small vessel ischemic type changes and mild atrophy. The postcontrast imaging is sig nificantly limited by motion on several of the sequences. No enhancing masses at the cerebellopontine angle or along the internal auditory canals. Symmetric appearance of the posterior fossa. Ventricles and extra-axial spaces are normal. No inferior displacement of cerebellar tonsils. Clivus and pituitary gland are normal. Internal and external auditory canals: Unremarkable. Cranial nerves VII and VIII complexes: Unremarkable. No enhancement or mass. Cerebellopontine angles: Normal. Paranasal sinuses: Normal. Mastoid air cells: Normal. Calvarium and scalp: Normal. [place] poorly visualized due to motion. Dural venous sinuses are also poorly visualized, no signal abnormalities are detected. MR/MR iac's wo/w con* [id number] IMPRESSION: 1. Study quality is significantly limited by motion artifact. 2. No masses or signal abnormality noted at the cerebellopontine angles or trace ng the internal auditory canals. 3. Mild atrophy and mild small vessel ischemic disease. 4. No infarct.
[2022-06-17] MEDS: gadobenate dimeglumine 20 mL vial IV (07:58)
== END 2022-06-17 07:11 | disposition home or self-care (01) ==
LOC: RAD 07:11
PROVIDERS: PCP Family Medicine; Visit Provider Specialist
DX: H81.13 Benign paroxysmal vertigo, bilateral (principal); I67.82 Cerebral ischemia; G31.9 Degenerative disease of nervous system, unspecified
CPT/HCPCS: 70553; A9577

== ENCOUNTER → 2022-07-01 14:27 | Outpatient (BNVA) | payer MEDICARE, OTHER, SELFPAY | PROVIDERS: PCP Family Medicine; Visit Provider Internal Medicine Rheumatology | DX: M05.79 Rheumatoid arthritis with rheumatoid factor of multiple sites without organ or systems involvement (principal); Z79.899 Other long term (current) drug therapy; Z71.89 Other specified counseling; N18.31 Chronic kidney disease, stage 3a; M19.90 Unspecified osteoarthritis, unspecified site; Z96.642 Presence of left artificial hip joint; M85.80 Other specified disorders of bone density and structure, unspecified site; Z92.3 Personal history of irradiation; Z86.711 Personal history of pulmonary embolism; Z85.3 Personal history of malignant neoplasm of breast; Z79.01 Long term (current) use of anticoagulants; Z86.16 Personal history of COVID-19 | CPT/HCPCS: 99214 ==

== ENCOUNTER → 2022-08-25 10:51 | Outpatient (BNVA) | payer MEDICARE, OTHER, SELFPAY | PROVIDERS: PCP Family Medicine; Visit Provider Internal Medicine Cardiovascular Disease | DX: R06.02 Shortness of breath (principal); I34.0 Nonrheumatic mitral (valve) insufficiency; Z86.711 Personal history of pulmonary embolism; M06.9 Rheumatoid arthritis, unspecified; I12.9 Hypertensive chronic kidney disease with stage 1 through stage 4 chronic kidney disease, or unspecified chronic kidney disease; N18.32 Chronic kidney disease, stage 3b; R60.0 Localized edema; N18.31 Chronic kidney disease, stage 3a; I26.99 Other pulmonary embolism without acute cor pulmonale | CPT/HCPCS: 80048; 83880; 99214 ==

== ENCOUNTER 2022-09-24 06:34 | Outpatient (CLI) | payer MEDICARE, OTHER, SELFPAY ==
--- NOTE | 2022-09-24 | ECG_ITS ---
[facility] Test Date: 2022-09-24 Pat Name: Corina Vasques Department: Room: Gender: Female Student Education Specialist: : 1950 Requested By: Reggie Reeves Order Number: [id number] Emily MD: Reggie Reeves M.D. Interpretive Statements NAME OF STUDY: LEXISCAN SESTAMIBI STRESS TEST INDICATION: CHF PROCEDURE: At the baseline, the EKG revealed normal sinus rhythm with normal ST Ts. Normal GA and QRS duration.. The baseline heart was 64 bpm with a blood pressue of 131/88 mm of Hg Lexiscan was infused over a period of 20 seconds. A total of 0.4 milligrams of Lexiscan was infused. The stress phase was continued for a total of 5 minutes. Heart rate at the end of the stress phase was 83 bpm with a blood pressure 99/61 mm of Hg. The EKG at the peak infusion revealed no significant changes. Sestamibi was injected 20 seconds after the Lexiscan infusion. Heart rate at the end of the recovery phase was 74 bpm with a blood pressure of 105/62 mmHg CONCLUSION: 1. No significant EKG changes with the LexiScan infusion 2. No LexiScan induced chest pain or cardiac arrhythmia 3. Normal blood pressure and heart rate response 4. Sestamibi/sestamibi perfusion scan pending; see separate report. Electronically Signed On 09-27-2022 21:55:23 CDT by Reggie Reeves M.D. [id number]
[2022-09-24 07:17] VITALS: BMI 41.5
--- NOTE | 2022-09-24 07:43 | NMCV_ITS ---
NM kareen perf SPECT r/s* [id number] Corina Vasques Age: 72 Gender: F : 1950 Exam Date: 09/24/2022 07:59 Ordering Phys: Reggie Reeves MD ([email or web address]) Technologist: HASMUKH Mccoy Exam Location: [facility] Indications: CORONARY ANGIOPLASTY STATUS, SHORTNESS OF BREATH STRESS TEST Please [facility] IMAGE PROTOCOL Rest/Stress 1 Lexiscan Day Radiopharmaceutical Dose (mCi) Administration Site Administered by Rest: Tc-99m 10.8 IV HASMUKH Flannery Sestamibi Stress:Tc-99m 32.9 IV HASMUKH Flannery Sestamibi Rest: 60 Discovery 630 Stress: 30 Discovery 630 0.4mg Lexiscan. Images obtained in supine and prone position. SPECT RESULTS Technical Quality: Excellent Raw Data Analysis: Normal Image Corrections: No attenuation or motion correction applied Summed Stress Score: 0 Summed Rest Score: 0 Summed Difference Score: 0 PERFUSION FINDINGS Uniform myocardial tracer uptake with no significant perfusion abnormalities FUNCTIONAL RESULTS (calculated via Gated SPECT) Stress Image LV EF (%): 88 Stress EDV (mL):50 TID: 0.89 Stress ESV (mL):6 FUNCTIONAL FINDINGS: Segmental wall motion analysis revealing no gross wall motion abnormalities IMPRESSIONS 1. Myocardial perfusion imaging revealing uniform myocardial tracer uptake with no significant perfusion abnormalities. 2. Normal LV ejection fraction of 88%. 3. LV wall motion analysis revealing no gross wall motion abnormalities. 4. Normal LV volume Low probability for coronary ischemia, based on the above findings Dr Reggie Reeves MD FAC (Electronically Signed) Final Date: 24 September 2022 16:50 S
[2022-09-24] MEDS: regadenoson 0.4 Mg/5 ml Syringe IVP (08:40)
[2022-09-24 08:59] VITALS: BP 105/65; PULSE 62
== END 2022-09-24 06:35 | disposition home or self-care (01) ==
LOC: CDL 06:38
PROVIDERS: PCP Family Medicine; Visit Provider Internal Medicine Cardiovascular Disease
DX: I50.9 Heart failure, unspecified (principal); R06.02 Shortness of breath; Z98.62 Peripheral vascular angioplasty status
CPT/HCPCS: 36415; 78452; 93017; 96374; A9500; J2785

== ENCOUNTER → 2022-09-30 15:53 | Outpatient (BNVA) | payer MEDICARE, OTHER, SELFPAY | PROVIDERS: PCP Family Medicine; Visit Provider Internal Medicine Rheumatology | DX: R06.02 Shortness of breath (principal); Z86.16 Personal history of COVID-19; M05.9 Rheumatoid arthritis with rheumatoid factor, unspecified; N18.31 Chronic kidney disease, stage 3a | CPT/HCPCS: 71046; 99214 ==

== ENCOUNTER 2022-11-05 10:18 | Outpatient (RCR) | payer MEDICARE, OTHER, SELFPAY | END 2022-11-19 23:59 | disposition home or self-care (01) | LOC: SPT 10:18 | PROVIDERS: PCP Family Medicine; Visit Provider Family Medicine | DX: R42 Dizziness and giddiness (principal) | CPT/HCPCS: 95992; 97161 ==

== ENCOUNTER → 2023-01-06 14:27 | Outpatient (BNVA) | payer MEDICARE, OTHER, SELFPAY | PROVIDERS: PCP Family Medicine; Visit Provider Internal Medicine Rheumatology | DX: M05.79 Rheumatoid arthritis with rheumatoid factor of multiple sites without organ or systems involvement (principal); U07.1 COVID-19; R06.02 Shortness of breath; Z79.899 Other long term (current) drug therapy; Z71.89 Other specified counseling; N18.31 Chronic kidney disease, stage 3a | CPT/HCPCS: 99214 ==

== ENCOUNTER 2023-01-31 09:20 | Emergency (ER) | payer MEDICARE, OTHER, SELFPAY ==
[2023-01-31] VITALS (11 sets, daily range): BP systolic 114–154; BP diastolic 70–81; PULSE 78–88; RESP 16–25; TEMP 36.5; O2SAT 93–95; BMI 41.5
--- NOTE | 2023-01-31 09:31 | CTR_ITS ---
PROCEDURE INFORMATION: Exam: CT Head Without Contrast Exam date and time: 01/31/2023 9:46 AM Age: 72 years old Clinical indication: Stroke-like symptoms; Altered mental status/memory loss and speech disturbance; Lt upper extremity weakness; Additional info: Symptoms of acute stroke TECHNIQUE: Imaging protocol: Computed tomography of the head without contrast. Radiation optimization: All CT scans at this facility use at least one of these dose optimization techniques: automated exposure control; mA and/or kV adjustment per patient size (includes targeted exams where dose is matched to clinical indication); or iterative reconstruction. Other technique: STROKE PROTOCOL was implemented. REPORTING DATA: Count of CT and Cardiac NM exams in prior 12 months: This patient has received [address] and 0 known cardiac nuclear medicine studies in the 12 months prior to the current study. COMPARISON: CT head wo con* [id number] 04/10/2019 11:45 AM RADIATION DOSE METRICS: Total DLP (mGy-cm): 1013.68 FINDINGS: Brain: Normal. No hemorrhage. No mass effect or midline shift. Cortical sulci and white matter are unremarkable for age. Cerebral ventricles: Unremarkable for age. Paranasal sinuses: Visualized sinuses are unremarkable. No fluid levels. Mastoid air cells: Visualized mastoid air cells are well aerated. Bones/joints: Unremarkable. No acute fracture. Soft tissues: Unremarkable. CT/CT head thrombolytic [id number] IMPRESSION: No acute intracranial abnormality. ASSESSMENT: ASPECTS ([employer] Stroke Program Early CT Score) is 10.
--- NOTE | 2023-01-31 09:32 | ED_ITS ---
HPI - Neuro Symptoms/Deficit General: Chief Complaint: Neuro Symptoms/Deficit Stated Complaint: stroke like symptoms Time Seen by Provider: 01/31/23 09:21 Source: patient and family Mode of arrival: wheelchair Limitations: no limitations History of Present Illness: This patient was transported to the emergency department by her family. There is some question of whether she is having some speech and word finding difficulty approximately 6 AM onset today. This is collaborated by her family who are with her. The symptoms are noted as some slurring of speech as well as some word finding difficulty. She has had a headache but this is a typical headache for her and nothing unusual. She does have occasional migraine headaches for which she takes medicines for. She did do so this morning and her headache is improved. She denies any focal weakness or other constitutional symptoms at this time. She apparently has had some viral syndrome type feelings over the last couple days and was seen in clinic yesterday and had a COVID-19 test which was negative. She takes Eliquis on a daily basis due to recurrent pulmonary emboli. She has had no recent trauma or falls. Timing confirmed by: spouse Location: speech Severity: mild Associated symptoms: Reports headache(s); Deny chest pain, nausea, syncope or vomiting Review of Systems Const: Denies: fever(s) or chills Eyes: Reports: blurry vision; Denies: change in vision or blind spots ENMT: Denies: throat pain Card: Denies: chest pain, palpitations, irregular heart rhythm, syncope or pre-syncope Resp: Denies: dyspnea, productive cough or non-productive cough GI: Denies: abdominal pain, nausea or vomiting : Denies: flank pain, difficulty voiding, dysuria or urinary frequency Musc: Denies: neck pain, back pain, extremity pain or extremity swelling Skin/Breast: Denies: rash Neuro: Reports: headache(s) and Slurred speech present; Denies: numbness in extremities, weakness in extremities or dizziness Psych: Denies: anxiety, depression or mood swings Endo: Denies: polyuria, polydipsia or tired all the time [facility] ED PFSH: Medical History Benign essential hypertension Bilateral leg edema CKD (chronic kidney disease) Dr Toure is following up on this Elevated cholesterol High risk medication use History of hip fracture Hypotension Hypothyroidism Immunization counseling Mitral regurgitation Osteoarthritis Osteopenia Recurrent pulmonary embolism Rheumatoid arthritis Rheumatoid arthritis with rheumatoid factor Surgical History History of appendectomy History of hip replacement History of hysterectomy History of parotid gland removal Family History Father CAD (coronary artery disease), Onset Age: 40 Lung disease Cancer Brother Cancer Stroke Grandmother Cancer Family/Other Cancer Mother Stroke Sister CAD (coronary artery disease), Onset Age: 55 [place] Other Arthritis COPD (chronic obstructive pulmonary disease) Hypertension Denies family history of Rheumatoid arthritis Diabetes Lupus Clotting disorder Dementia Chronic kidney disease (CKD) Suicide Anesthesia complication Bleeding disorder Social History Smoking and tobacco status: never smoked Alcohol intake: never Substance/Drug Use: never NIH stroke score 2 NIHSS: Level Of Consciousness - 1a: 0 Level Of Consciousness Questions - 1b: Both Correct Level Of Consciousness Commands - 1c: Both Correct Best Gaze - 2: Normal Visual Muniz - 3: No Visual Loss Facial Palsy - 4: Normal Motor Arm Right - 5: No Drift Motor Arm Left - 5: No Drift Motor Leg Right - 6: No Drift Motor Leg Left - 6: No Drift Limb Ataxia - 7: Absent Sensory - 8: Normal Best Language - 9: No Aphasia Dysarthia - 10: Normal Extinction And Inattention - 11: 0 Score: Total Score: 0 Physical Exam Narrative: EXAM NARRATIVE: Elderly female who makes good eye contact, speech is goal-directed. Speech appears to be fluent at the time of initial intake. Const: COMMON NORMALS: no acute distress, patient oriented x3 and alert GENERAL APPEARANCE: cooperative NUTRITIONAL APPEARANCE: overweight ORIENTATION/CONSCIOUSNESS: Yes awake HENMT: COMMON NORMALS: normocephalic, atraumatic, moist oral mucous membranes and oropharynx normal HEAD & SCALP: normocephalic and atraumatic; no scalp tenderness Eye: COMMON NORMALS: Equal, round and reactive pupils present, EOMs intact bilaterally, conjunctivae normal and normal visual muniz by confrontation CONJUNCTIVA: Yes conjunctivae normal PUPIL: Yes Equal, round and reactive pupils present Neck/C-Spine: COMMON NORMALS: full ROM, no lymphadenopathy, supple, no JVD and No carotid bruits Chest: COMMONS NORMALS: normal inspection of the chest and normal palpation of entire chest wall Resp: COMMON NORMALS: normal respiratory effort, No retractions, No use of accessory muscles and clear to auscultation bilaterally AUSCULTATION: clear to auscultation bilaterally Cardio: COMMON NORMALS: no JVD, regular rate, No murmurs present (Cardio) and Peripheral pulses 2+ throughout RATE: regular rate PERIPHERAL PULSES: Peripheral pulses 2+ throughout GI: COMMON NORMALS: Normal to inspection, nondistended, normoactive bowel sounds present, Soft to palpation and non-tender PALPATION: Yes Soft to palpation : COMMON NORMALS: Yes no CVA tenderness BLADDER/KIDNEY EXAM: Yes no CVA tenderness Back/Pelvis: COMMON NORMALS: no CVA tenderness, thoracic and lumbar spine normal to inspection, thoraco-lumbar ROM normal and straight leg raise negative bilaterally Extremity: COMMON NORMALS: normal to inspection, full ROM, capillary refill normal, no calf tenderness and no pedal edema Neuro: COMMON NORMALS: patient oriented x3, moves all extremities, no focal motor deficits and no sensory deficits noted SENSORIUM/ORIENTATION: Yes alert CRANIAL NERVES: Yes CN normal except as noted Psych: COMMON NORMALS: mental status grossly normal, cooperative and normal affect Skin: COMMON NORMALS: no rashes or lesions noted, no wounds, turgor normal and no jaundice GENERAL SKIN EXAM: no rashes or lesions noted and turgor normal Course Reevaluation(s): Reevaluation #1: She remained stable without any new findings. Discussed current imaging and other results. Time: 10:26 Reevaluation #2: No new findings on evaluation other than her urinalysis does show evidence of signs of urinary tract infection which may have contributed to her unwell feeling the last few days. She is currently being seen by consulting neurologist. This patient is not a candidate for thrombolytic therapy etc. at this time given the low NIH stroke scale and that the risks far outweigh any potential benefits from consideration of thrombolytic therapy. Time: 11:44 Reevaluation #3: Patient was reevaluated. She is doing well with normal vital signs and no new or focal findings on repeat evaluation. Discussed current findings recommendations and limitations and follow-up with both she and spouse. Likely her malaise over the past several days has been due to undiagnosed urinary tract infection we will initiate treatment for that condition. CTA is reassuring without any evidence of significant stenosis or other findings that would indicate need for more urgent intervention. Discussed additional stroke prevention measures and close follow-up. She will be seeing neurology in 2 weeks. Will also initiate Keflex for her UTI. All questions were answered she is stable at this time for discharge. Time: 12:32 Consultations: Consultation #1: Discussed with on-call neurology Dr. Aly. Reviewed current findings and presentation. He did recommend proceeding with a CTA and then if normal then adding an antiplatelet agent. Time: 10:28 Vital Signs: Vital signs: Vital Signs Temperature 97.7 F 01/31/23 09:25 Pulse Rate 78 01/31/23 10:45 Respiratory Rate 16 01/31/23 10:12 Blood Pressure 126/74 01/31/23 11:15 Pulse Oximetry 93 01/31/23 11:15 Oxygen Delivery Me thod Room Air 01/31/23 10:12 MDM - Neuro Symptoms/Deficit Medical Decision Making This patient presented to our emergency department because of concerns about possible word finding difficulty and intermittent dysarthria today. She has a history of occasional migraine headaches and apparently takes sumatriptan for that condition which she did today. She presented with that history and her clinical examination was stable without any evidence of focal findings with an NIH of 0. She was initiated under stroke protocol that included brain imaging which was reassuring. She was also seen by neurology in consultation as per protocol. Part of her work-up also was notable in that she had evidence of urinary tract infection which may have contributed to her several day feeling malaise and unwell prior to arrival to the emergency department. CTA was obtained which revealed no evidence of concerning stenosis or vessel occlusion. She remained stable. She is suitable to be discharged with outpatient neurology follow-up. We will have her discontinue her sumatriptan as that may or may not have contributed to her presentation today given its effect on cerebral vasculature (as a possible stroke mimic). She will also have a 81 mg aspirin added to her regimen of Eliquis which she takes for recurrent pulmonary embolus. We will continue on Keflex pending urine cultures. We also discussed return precautions in detail. She is stable for discharge. Lab Data I reviewed the patient's lab results. 01/31/23 09:39 01/31/23 09:[address] 01/31/23 09:31 IMPRESSION: No acute intracranial abnormality. ASSESSMENT: ASPECTS ([place] Stroke Program Early CT Score) is 10. Head/Neck CTA 01/31/23 10:29 IMPRESSION: No large vessel stenosis or major branch occlusion. IMPRESSION: 1. Mild calcified plaque both carotid bifurcations. No significant carotid stenosis. 2. No evidence for vertebrobasilar insufficiency. REFERENCES: NASCET CRITERIA. The degree of stenosis in the cervical segment of the internal carotid artery is based on NASCET criteria. Normal is no stenosis. Mild is less than 50% stenosis. Moderate is 50-69% stenosis. Severe is 70% to 99% stenosis. Total occlusion is no detectable patent lumen. Laboratory Results WBC 12.0 10^3/uL (4.0-10.0) H 01/31/23 09:39 RBC 4.41 10^6/uL (4.1-5.3) 01/31/23 09:39 Hgb 13.4 g/dL (11.5-15.3) 01/31/23 09:39 Hct 40.8 % (37.0-47.0) 01/31/23 09:39 MCV 92.5 fl (81-99) 01/31/23 09:39 MCH 30.4 pg (28.0-34.0) 01/31/23 09:39 MCHC 32.8 g/dL (30.0-36.0) 01/31/23 09:39 RDW 15.3 % (12.1-15.1) H 01/31/23 09:39 Plt Count 112 10^3/cmm (130-400) L 01/31/23 09:39 MPV 9.5 fL (7.4-10.4) 01/31/23 09:39 Neut % (Auto) 84.9 % 01/31/23 09:39 Lymph % (Auto) 5.3 % 01/31/23 09:39 Boyle % (Auto) 8.6 % 01/31/23 09:39 Eos % (Auto) 0.2 % 01/31/23 09:39 Baso % (Auto) 0.3 % 01/31/23 09:39 Neut # (Auto) 10.19 10^3/uL (1.8-7.7) H 01/31/23 09:39 Lymph # (Auto) 0.6 10^3/uL (0.8-4.8) L 01/31/23 09:39 Boyle # (Auto) 1.0 10^3/uL (0.2-0.9) H 01/31/23 09:39 Eos # (Auto) 0.0 10^3/uL (0.0-0.8) 01/31/23 09:39 Baso # (Auto) 0.0 10^3/uL (0.0-0.1) 01/31/23 09:39 Nucleated RBC % (auto) 0 % 01/31/23 09:39 Nucleated RBCs # 0.0 /100WBC 01/31/23 09:39 PT 16.80 SECONDS (12.1-14.9) H 01/31/23 09:39 INR 1.32 (0.8-1.2) H 01/31/23 09:39 APTT 28.3 SECONDS (23.9-36.7) 01/31/23 09:39 Sodium 136 mmol/L (136-145) 01/31/23 09:39 Potassium 3.9 mmol/L (3.5-5.1) 01/31/23 09:39 Chloride 100 mmol/L (98-107) 01/31/23 09:39 Carbon Dioxide 24 mmol/L (22-29) 01/31/23 09:39 Anion Gap 15.9 (5-19) 01/31/23 09:39 BUN 16 mg/dL (8-23) 01/31/23 09:39 Creatinine 1.3 mg/dL (0.5-0.9) H 01/31/23 09:39 GFR Calculation Not Reportable 01/31/23 09:39 Glucose 107 mg/dL (65-115) 01/31/23 09:39 POC Glucose 95 mg/dL (70-110) 01/31/23 09:53 Calculated Osmolality 284 mOsm/kg (285-295) L 01/31/23 09:39 Calcium 9.2 mg/dL (8.5-10.5) 01/31/23 09:39 Total Bilirubin 0.9 mg/dL (0.15-1.2) 01/31/23 09:39 AST 30 U/L (0-32) 01/31/23 09:39 ALT 30 U/L (0-33) 01/31/23 09:39 Alkaline Phosphatase 89 U/L (35-105) 01/31/23 09:39 Total Protein 6.7 g/dL (6.6-8.7) 01/31/23 09:39 Albumin 3.6 g/dL (3.5-5.2) 01/31/23 09:39 Globulin 3.1 g/dL (1.3-4.6) 01/31/23 09:39 Urine Color Yellow (Yellow) 01/31/23 10:07 Urine Appearance Hazy (CLEAR) A 01/31/23 10:07 Urine pH 5 (5-7) 01/31/23 10:07 Ur Specific [place] 1.005 (1.005-1.030) 01/31/23 10:07 Urine Protein Neg (Negative) 01/31/23 10:07 Urine Glucose (UA) Norm (Normal) 01/31/23 10:07 Urine Ketones Negative (Negative) 01/31/23 10:07 Urine Blood 3+ (Negative) H 01/31/23 10:07 Urine Nitrate Positive (Negative) H 01/31/23 10:07 Urine Bilirubin Neg (Negative) 01/31/23 10:07 Urine Urobilinogen Norm mg/dL (Negative) 01/31/23 10:07 Ur Leukocyte Esterase 2+ (Negative) H 01/31/23 10:07 Urine RBC 5-10 /hpf (0-2) H 01/31/23 10:07 Urine WBC 55-80 /hpf (0-5) H 01/31/23 10:07 Ur Squamous Epith Cells 0-4 /hpf (0-5) H 01/31/23 10:07 Amorphous Sediment Not Reportable 01/31/23 10:07 Urine Bacteria 4+ /hpf (NONE) H 01/31/23 10:07 EKG Data EKG 1: I personally reviewed and interpreted this EKG as follows: Interpretation: Contemporaneous review of the EKG reveals a ventricular rate of 80 bpm. Normal OR interval, QRS duration, corrected QT interval, axis. She has nonspecific ST- T wave changes however there is no evidence at this time of any significant ischemia, etc. Discharge Plan Discharge Patient Disposition: Home Clinical Impression: Headache, chronic migraine without aura, Urinary tract infection, Dysarthria Condition: Stable Prescriptions: New cephalexin 500 mg capsule 500 mg PO TID 7 Days Qty: 21 0RF No Action omega 3-fdx-pvo-fish oil [Fish Oil] 300-1,000 mg capsule 1 cap PO DAILY potassium chloride 20 mEq tablet extended release 20 meq PO DAILY lisinopril 2.5 mg tablet 2.5 mg PO DAILY pregabalin [Lyrica] 200 mg capsule 200 mg PO BEDTIME red yeast rice 600 mg capsule 600 mg PO BID Rx Instructions: give with meal/snack metoprolol tartrate 100 mg tablet 100 mg PO BID furosemide 20 mg tablet 20 mg PO DAILY cholecalciferol (vitamin D3) 50 mcg (2,000 unit) capsule 50 mcg PO DAILY Unisom (doxylamine) 25 mg tablet 25 mg PO BEDTIME PRN (Reason: Sleep) Humira Pen 40 mg/0.8 mL pen injector kit 40 mg SUBCUT Q14D Qty: 2 3RF Eliquis 5 mg tablet 5 mg PO BID Qty: 60 3RF hydroxychloroquine 200 mg tablet See Rx Instructions PO DAILY Qty: 135 1RF Rx Instructions: alternate taking 1 tab today and then 2 tabs tomorrow. PO daily; prednisone 2.5 mg tablet 2.5 mg PO DAILY Qty: 90 1RF diclofenac sodium 1 % gel 2 g topical QID Qty: 100 2RF Rx Instructions: apply to affected area as needed sumatriptan succinate 100 mg tablet See Rx Instructions PO .COMPLEX Rx Instructions: take 1 tab at onset of headache; if no relief, may repeat 1 tab after at least 2 hrs; max = 2 tabs/24 hrs PO promethazine 12.5 mg tablet 12.5 mg PO Q6H PRN (Reason: Nausea) prednisone 10 mg tablet See Rx Instructions PO .COMPLEX PRN (Reason: joint pain) Qty: 30 1RF Rx Instructions: take 1 tab daily for 3-7 days prn joint pain flare PO PRN; levothyroxine [Synthroid] 100 mcg tablet 100 mcg PO DAILY acetaminophen 500 mg Capsule 1,000 mg PO Q6H PRN (Reason: Pain) vitamin E 400 unit Capsule 400 unit PO BID pantoprazole 40 mg tablet,delayed release (DR/EC) 40 mg PO BID Qty: 60 0RF Discharge Orders: Discharge ED (Routine); Ordered 01/31/23 Ordered By: Silvano Byrne Referrals: Mihaela Miguel MD [Primary Care Provider] - Discharge Diet: Usual diet Discharge Activity: Increase activity as tolerated Patient Instructions: Opioid Safety, Pain Management Activity Restrictions/Additional Instructions: As we discussed he did not have any evidence of an acute stroke today. We recommend you stop taking the sumatriptan as that may have contributed to your presentation today with your headache medicine may cause some changes in your blood vessels which can mimic a stroke. We also do recommend you take 81 mg of aspirin a day in addition to all your usual medications to help reduce any possible stroke risk. Take this with meals. We have prescribed an antibiotic to take for the next 7 days for your urinary tract infection. You should follow-up with neurology Dr. Aly in approximately 2 weeks. If you have any new or worsening symptoms or other concerns you are welcome to return to the emergency department at any time. Coding Level of Care Code ED [employer] for [employer] [facility]
--- NOTE | 2023-01-31 09:43 | ECG_ITS ---
[facility] Test Date: 2023-01-31 Pat Name: Corina Vasques Department: Room: Gender: Female Industrial Cleaner: : 1950 Requested By: Silvano Byrne Order Number: [id number] Emily MD: Jian Ruby M.D. Measurements Intervals [place] Rate: 80 P: 36 SD: 123 QRS: 17 QRSD: 76 T: 72 QT: 346 QTc: 399 Interpretive Statements SINUS RHYTHM NONSPECIFIC T-WAVE ABNORMALITY Compared to ECG 06/09/2022 11:27:47 Sinus bradycardia no longer present T-wave abnormality still present Electronically Signed On 02-01-2023 11:25:34 CDT by Jian Ruby M.D. [email or web address]
[2023-01-31 09:51] LABS: Basophils % 0.3 %; Eosinophils % 0.2 %; Hematocrit 40.8 % (37.0-47.0); Hemoglobin 13.4 g/dL (11.5-15.3); Lymphocytes # 0.6 10^3/uL (0.8-4.8); Lymphocytes % 5.3 %; Mean Corpuscular HGB Conc 32.8 g/dL (30.0-36.0); Mean Corpuscular Hemoglobin 30.4 pg (28.0-34.0); Mean Corpuscular Volume 92.5 fl (81-99); Mean Platelet Volume 9.5 fL (7.4-10.4); Monocytes % 8.6 %; Neutrophils # 10.19 10^3/uL (1.8-7.7); Neutrophils % 84.9 %; Nucleated Red Blood Cells % 0 %; Platelet Count 112 10^3/cmm (130-400); Red Blood Count 4.41 10^6/uL (4.1-5.3); Red Cell Distribution Width 15.3 % (12.1-15.1)
[2023-01-31 09:56] LABS: INR 1.32 (0.8-1.2)
[2023-01-31 09:57] LABS: Partial Thromboplastin Time 28.3 SECONDS (23.9-36.7)
[2023-01-31 10:01] LABS: Alanine Aminotransferase 30 U/L (0-33); Albumin Level 3.6 g/dL (3.5-5.2); Alkaline Phosphatase 89 U/L (35-105); Anion Gap 15.9 (5-19); Aspartate Amino Transferase 30 U/L (0-32); Blood Urea Nitrogen 16 mg/dL (8-23); Calcium 9.2 mg/dL (8.5-10.5); Carbon Dioxide 24 mmol/L (22-29); Chloride 100 mmol/L (98-107); Globulin 3.1 g/dL (1.3-4.6); Glucose 107 mg/dL (65-115); Osmolality Calculated 284 mOsm/kg (285-295); Potassium 3.9 mmol/L (3.5-5.1); Sodium 136 mmol/L (136-145); Total Bilirubin 0.9 mg/dL (0.15-1.2); Total Protein 6.7 g/dL (6.6-8.7)
[2023-01-31 10:09] LABS: Glucose Point of Care 95 mg/dL (70-110)
--- NOTE | 2023-01-31 10:29 | CTR_ITS ---
PROCEDURE INFORMATION: Exam: CTA Head With Contrast, Arteriography Exam date and time: 01/31/2023 11:30 AM Age: 72 years old Clinical indication: Weakness; Additional info: Dysarthria TECHNIQUE: Imaging protocol: Computed tomographic angiography of the head with contrast. Exam focused on the arteries. 3D rendering (Not supervised by radiologist): MIP and/or 3D reconstructed images were created by the technologist. Radiation optimization: All CT scans at this facility use at least one of these dose optimization techniques: automated exposure control; mA and/or kV adjustment per patient size (includes targeted exams where dose is matched to clinical indication); or iterative reconstruction. Contrast material: OMNI 350; Contrast volume: 100 ml; Contrast route: INTRAVENOUS (IV); REPORTING DATA: Count of CT and Cardiac NM exams in prior 12 months: This patient has received [address] and 0 known cardiac nuclear medicine studies in the 12 months prior to the current study. COMPARISON: CT head thrombolytic [id number] 01/31/2023 9:46 AM RADIATION DOSE METRICS: Total DLP (mGy-cm): 484.83 FINDINGS: ANTERIOR CIRCULATION: Right internal carotid artery: Calcification intracranial segment right ICA with mild stenosis. Right middle cerebral artery: No occlusion or significant stenosis. No aneurysm. Right anterior cerebral artery: No occlusion or significant stenosis. No aneurysm. Left internal carotid artery: Minimal calcification intracranial segment left ICA without stenosis. Left middle cerebral artery: No occlusion or significant stenosis. No aneurysm. Left anterior cerebral artery: No occlusion or significant stenosis. No aneurysm. POSTERIOR CIRCULATION: Right vertebral artery: No occlusion or significant stenosis. No aneurysm. Left vertebral artery: No occlusion or significant stenosis. No aneurysm. Basilar artery: No occlusion or significant stenosis. No aneurysm. Right posterior cerebral artery: No occlusion or significant stenosis. No aneurysm. Left posterior cerebral artery: No occlusion or significant stenosis. No aneurysm. Brain: No intracranial hemorrhage, mass effect, or midline shift. Cerebral ventricles: No ventriculomegaly. Bones/joints: Unremarkable. No acute fracture. Soft tissues: Unremarkable. PROCEDURE INFORMATION: Exam: CTA Neck With Contrast Exam date and time: 01/31/2023 11:30 AM Age: 72 years old Clinical indication: Weakness; Additional info: Dysarthria TECHNIQUE: Imaging protocol: Computed tomographic angiography of the neck with contrast. 3D rendering (Not supervised by radiologist): MIP and/or 3D reconstructed images were created by the technologist. Radiation optimization: All CT scans at this facility use at least one of these dose optimization techniques: automated exposure control; mA and/or kV adjustment per patient size (includes targeted exams where dose is matched to clinical indication); or iterative reconstruction. Contrast material: OMNI 350; Contrast volume: 100 ml; Contrast route: INTRAVENOUS (IV); REPORTING DATA: Count of CT and Cardiac NM exams in prior 12 months: This patient has received [address] and 0 known cardiac nuclear medicine studies in the 12 months prior to the current study. COMPARISON: MR orbit face neck wo/w* [id number] 06/07/2021 3:51 PM RADIATION DOSE METRICS: Total DLP (mGy-cm): 484.83 FINDINGS: Right common carotid artery: No stenosis. No dissection or occlusion. Right internal carotid artery: Spotty calcification right ICA origin with minimal stenosis (10-20%). Right external carotid artery: No occlusion or stenosis of the origin. Left common carotid artery: No stenosis. No dissection or occlusion. Left internal carotid artery: Mild calcified plaque origin left ICA with mild stenosis (30-40%). Left external carotid artery: No occlusion or stenosis of the origin. Right vertebral artery: Right vertebral artery is dominant. Left vertebral artery: No stenosis. No dissection or occlusion. Soft tissues: Normal. No significant soft tissue swelling. Bones/joints: No acute fracture. CT/CT angio headneck* [id number] IMPRESSION: No large vessel stenosis or major branch occlusion. IMPRESSION: 1. Mild calcified plaque both carotid bifurcations. No significant carotid stenosis. 2. No evidence for vertebrobasilar insufficiency. REFERENCES: NASCET CRITERIA. The degree of stenosis in the cervical segment of the internal carotid artery is based on NASCET criteria. Normal is no stenosis. Mild is less than 50% stenosis. Moderate is 50-69% stenosis. Severe is 70% to 99% stenosis. Total occlusion is no detectable patent lumen.
[2023-01-31 10:42] LABS: Add Urine Microscopic? YES; Bilirubin Urine Neg (Negative); Blood Urine 3+ (Negative); Glucose Urine UA Norm (Normal); Ketones Urine Negative (Negative); Leukocyte Esterase Urine 2+ (Negative); Nitrate Urine Positive (Negative); Protein Urine Neg (Negative); Specific Gravity, Urine 1.005 (1.005-1.030); Urine Appearance Hazy (CLEAR); Urine Color Yellow (Yellow); Urobilinogen Urine Norm (Negative); pH Urine 5 (5-7)
[2023-01-31 10:44] LABS: Bacteria Urine 4+ /hpf; Squamous Epithelial Cell Urine 0-4 /hpf (0-5); WBC Urine 55-80 /hpf (0-5)
[2023-01-31 10:45] LABS: Add Urine Culture? Yes
[2023-01-31] MEDS: iohexol 350 mg/mL 500 mL Btl (per mL) IV (11:36)
--- NOTE | 2023-01-31 12:26 | PM.CONSULT ---
Providers/Reason For Consult Consulting Physician/Specialty*: Silvano Aly MD neurology and epilepsy Reason for Consult*: Code stroke emergency room department room 7 Primary Care Provider: Mihaela Miguel MD History of Present Illness History of Present Illness Corina Vasques is a 72 year old female with a history of rheumatoid arthritis, pulmonary embolus treated with Eliquis, hypothyroidism and hypertension. According to the patient's who was present in the emergency room, the patient woke up on 01/31/2023 at 6:30 AM and was displaying slurred speech. According to the patient's the patient went back to sleep and woke up again at 8 AM on 01/31/2023 with worsening of slurred speech. As result the patient was brought to the [facility] emergency department. Patient was transported to ER room 7. The dysarthria resolved in the emergency room. NIH score =0. Head CT scan was obtained and reported to be negative. In view of the patient's last known well being the night of 01/30/2023 and awakening at 6:30 AM on 01/31/2023 with slurred speech, which resolved and the patient is on Eliquis, the patient was not a candidate for tPA and no tPA was administered. Also, patient's NIH score = 0 when performed by the emergency room physician and by me personally. The patient was scheduled for CT angiogram of the head and neck to assess for the possibility of intracranial thrombosis to determine if patient is a candidate for thrombectomy. Past medical history: Pulmonary embolus treated with Eliquis Rheumatoid arthritis Hypothyroidism Hypertension Migraine headache Drug allergies: Procardia which resulted in elevated blood pressure Gabapentin which resulted in shortness of breath Zithromax which resulted in hypertension and a rash Leflunomide which we have resulted in neuropathic pain manifested as severe burning and tingling in her feet Cymbalta which resulted in sensation that she was experiencing mini seizures Naproxen which resulted in edema and itching Hydrocodone which resulted in itching Current medications: Eliquis 5 mg p.o. twice daily for pulmonary embolus Imitrex 100 mg as needed headache Phenergan 12.5 mg p.o. as needed nausea while Humira injections 40 mg every 2 weeks Plaquenil 200 mg tablets 2 p.o. every other day and 1 pill every other day Prednisone 2.5 mg p.o. daily Lyrica 200 mg p.o. daily Metoprolol 100 mg p.o. daily Lisinopril 2.5 mg p.o. daily Synthroid 0.1 mg p.o. daily Protonix 40 mg p.o. twice daily Potassium chloride 20 mEq p.o. daily Fish oil 1000 mg p.o. daily Vitamin E 400 international units p.o. twice daily Vitamin D3 2000 international units p.o. daily Red yeast rice 600 mg p.o. twice daily for cholesterol Unisom 1 p.o. daily as needed sleep Habits: None Family history: Remarkable for a paternal grandmother and mother who experienced a stroke Review of Systems General: Reports: 10 or more systems reviewed and unremarkable except in HPI and below Resp: Reports: dyspnea GI: Reports: heartburn Neuro: Reports: Slurred speech present Medications/Allergies Home Medications Medication Instructions Recorded Confirmed Last Taken Type furosemide 20 mg tablet 20 mg PO DAILY 08/11/19 01/31/23 01/31/23 History metoprolol tartrate 100 mg tablet 100 mg PO BID 08/11/19 01/31/23 01/31/23 History omega 7-dkk-opp-fish oil 300 1 cap PO DAILY 08/15/19 01/31/23 01/31/23 History mg-1,000 mg capsule (Fish Oil) potassium chloride 20 mEq 20 meq PO DAILY 08/15/19 01/31/23 01/31/23 History tablet,extended release cholecalciferol (vitamin D3) 50 50 mcg PO DAILY 04/11/20 01/31/23 01/31/23 History mcg (2,000 unit) capsule doxylamine succinate 25 mg tablet 25 mg PO BEDTIME PRN Sleep 04/11/20 01/31/23 01/30/23 History (Unisom (doxylamine)) pregabalin 200 mg capsule (Lyrica) 200 mg PO BEDTIME 06/12/20 01/31/23 01/30/23 History acetaminophen 500 mg capsule 1,000 mg PO Q6H PRN Pain 06/27/20 01/31/23 06/28/20 History levothyroxine 100 mcg tablet 100 mcg PO DAILY 06/27/20 01/31/23 01/31/23 History (Synthroid) vitamin E 268 mg (400 unit) capsule 400 unit PO BID 06/27/20 01/31/2323 History pantoprazole 40 mg tablet,delayed 40 mg PO BID #60 tabs 06/29/20 01/31/23 01/31/23 Rx release lisinopril 2.5 mg tablet 2.5 mg PO DAILY 09/12/20 01/31/23 01/31/23 History red yeast rice 600 mg capsule 600 mg PO BID 08/21/21 01/31/23 01/31/23 History prednisone 10 mg tablet See Rx Instructions PO .COMPLEX 09/30/22 01/31/23 Unknown Rx PRN joint pain #30 tabs promethazine 12.5 mg tablet 12.5 mg PO Q6H PRN Nausea 09/30/22 01/31/23 Unknown History sumatriptan succinate 100 mg tablet See Rx Instructions PO .COMPLEX 09/30/22 01/31/23 01/31/23 History adalimumab 40 mg/0.8 mL 40 mg (0.8 mL) SUBCUT Q14D #2 ea 01/06/23 01/31/23 01/25/23 Rx subcutaneous pen kit (Humira Pen) apixaban 5 mg tablet (Eliquis) 5 mg PO BID #60 tabs 01/06/23 01/31/23 01/31/23 Rx diclofenac sodium 1 % topical gel 2 g topical QID #100 grams 01/06/23 01/31/23 Unknown Rx hydroxychloroquine 200 mg tablet See Rx Instructions PO DAILY #135 01/06/23 01/31/23 01/31/23 Rx tabs prednisone 2.5 mg tablet 2.5 mg PO DAILY #90 tabs 01/06/23 01/31/23 01/31/23 Rx cephalexin 500 mg capsule 500 mg PO TID 7 days #21 caps 01/31/23 Unknown Rx Allergies Allergy/AdvReac Type Severity Reaction Status Date / Time azithromycin [From Zithromax] Allergy ADR-Hyperte Verified 01/06/23 14:55 nsion duloxetine [From Cymbalta] Allergy PT states Verified 01/06/23 14:55 she felt like she was having mini seizures gabapentin Allergy ADR-Fatigue Verified 01/31/23 10:48 d leflunomide Allergy numbness Verified 01/06/23 14:55 and tingling of feet naproxen Allergy edema, Verified 01/06/23 14:55 itching nifedipine [From Procardia] Allergy ADR-Hyperte Verified 01/06/23 14:55 nsion hydrocodone [From Vicodin] AdvReac itching Verified 01/06/23 14:55 PFSH Acute PFSH: Medical History Benign essential hypertension Bilateral leg edema CKD (chronic kidney disease) Dr Toure is following up on this Elevated cholesterol High risk medication use History of hip fracture Hypotension Hypothyroidism Immunization counseling Mitral regurgitation Osteoarthritis Osteopenia Recurrent pulmonary embolism Rheumatoid arthritis Rheumatoid arthritis with rheumatoid factor Surgical History History of appendectomy History of hip replacement History of hysterectomy History of parotid gland removal Family History Father CAD (coronary artery disease), Onset Age: 40 Lung disease Cancer Brother Cancer Stroke Grandmother Cancer Family/Other Cancer Mother Stroke Sister CAD (coronary artery disease), Onset Age: 55 [place] Other Arthritis COPD (chronic obstructive pulmonary disease) Hypertension Denies family history of Rheumatoid arthritis Diabetes Lupus Clotting disorder Dementia Chronic kidney disease (CKD) Suicide Anesthesia complication Bleeding disorder Social History Smoking and tobacco status: never smoked Alcohol intake: never Substance/Drug Use: never Vitals/I&O/Wt Last Vital Signs Temp 97.7 F 01/31/23 09:25 Pulse 78 01/31/23 10:45 Resp 16 01/31/23 10:12 BP 126/74 01/31/23 11:15 Pulse Ox 93 01/31/23 11:15 O2 Del Method Room Air 01/31/23 10:12 Weight last 48 hrs Weight 220 lb Physical Exam Narrative: NIH score = 0 Blood pressure 156/81 heart rate 93 O2 saturation 96% on room air The patient is alert and oriented x3. Speech fluent. Head normocephalic. Neck supple. Cranial nerves II through XII intact. Pupils equal round and reactive to light and accommodation. Extraocular movements intact. Visual muniz full via confrontation. There were no nystagmus. Motor testing 5/5 bilaterally. There was no drift. Deep tendon reflexes grossly symmetrical at 2+. Plantar responses flexor bilaterally. There was no clonus. Sensory examination was intact to touch, pinprick and there was no extinction on double sensory stimulation. Throat clear. Lungs clear. Heart regular rhythm and rate. Abdomen soft bowel sounds positive. Extremities were negative for clubbing or cyanosis Data 01/31/23 09:39 01/31/23 09:39 A&P Assessment and plan (1) TIA (transient ischemic attack): Impression: 1. Transient ischemic attacks manifested as episodic slurred speech (dysarthria), currently stable with NIH score =0 Note: Since the patient's NIH score =0, patient's last known well could not be determined since the patient woke up with slurred speech observed by her at 6:30 AM on 01/31/2023, and patient taking Eliquis for pulmonary embolus prophylaxis, the patient was not a candidate for tPA and no tPA was administered 2. Migraine headaches without aura 3. Pulmonary embolus treated with Eliquis 4. Rheumatoid arthritis 5. Hypertension 6. Heartburn 7. Shortness of breath 8. Hypothyroidism Plan: 1. Recommend obtaining CT angiogram of head and neck to assess for thrombus and to determine if patient is a candidate for thrombectomy 2. Add aspirin 81 mg p.o. every morning with food 3. Continue Eliquis as prescribed by the patient's physician 4. The patient was instructed to monitor for any excessive bruising, or if she experiences any hematuria or blood in her stool and to contact her physician immediately if she experiences any of the above 5. Discontinue Imitrex since patient is experiencing clinical symptoms suggestive of TIAs, since Imitrex may exacerbate TIA symptoms and have patient follow-up with her physician that prescribed the Imitrex to use an alternative medication other than triptans, or ergotamine or nonsteroidal anti-inflammatory medications for migraine headaches 6. Schedule patient for follow-up in the [facility] neurology department in 2 weeks 7. Schedule follow-up with the physician prescribing Eliquis to determine if alternative anticoagulation is indicated since the patient has history of pulmonary embolus and now presents with recurrent TIA episodes manifested as slurred speech (dysarthria) (2) Headache, chronic migraine without aura: Consult Attestations Medical Necessity Statement: Patient seen by neurology for critical care, code stroke emergency room bed 7 Coding Level of Care Code 61842 Diagnoses TIA (transient ischemic attack) G45.9 Headache, chronic migraine without aura G43.709 Time Spent (min) 30
[2023-01-31] MEDS: cephALEXin 500 mg Capsule PO (12:49)
--- NOTE | 2023-01-31 12:52 | ED_ITS ---
HPI - Neuro Symptoms/Deficit General: Chief Complaint: Neuro Symptoms/Deficit Stated Complaint: stroke like symptoms Time Seen by Provider: 01/31/23 09:21 Source: patient and family Mode of arrival: wheelchair Limitations: no limitations History of Present Illness: Location: speech Severity: mild PFSH ED PFSH: Medical History Benign essential hypertension Bilateral leg edema CKD (chronic kidney disease) Dr Toure is following up on this Elevated cholesterol High risk medication use History of hip fracture Hypotension Hypothyroidism Immunization counseling Mitral regurgitation Osteoarthritis Osteopenia Recurrent pulmonary embolism Rheumatoid arthritis Rheumatoid arthritis with rheumatoid factor Surgical History History of appendectomy History of hip replacement History of hysterectomy History of parotid gland removal Family History Father CAD (coronary artery disease), Onset Age: 40 Lung disease Cancer Brother Cancer Stroke Grandmother Cancer Family/Other Cancer Mother Stroke Sister CAD (coronary artery disease), Onset Age: 55 [place] Other Arthritis COPD (chronic obstructive pulmonary disease) Hypertension Denies family history of Rheumatoid arthritis Diabetes Lupus Clotting disorder Dementia Chronic kidney disease (CKD) Suicide Anesthesia complication Bleeding disorder Social History Smoking and tobacco status: never smoked Alcohol intake: never Substance/Drug Use: never Course Vital Signs: Vital signs: Vital Signs Temperature 97.7 F 01/31/23 09:25 Pulse Rate 78 01/31/23 10:45 Respiratory Rate 16 01/31/23 10:12 Blood Pressure 126/74 01/31/23 11:15 Pulse Oximetry 93 01/31/23 11:15 Oxygen Delivery Me thod Room Air 01/31/23 10:12 MDM - Neuro Symptoms/Deficit Lab Data 01/31/23 09:39 01/31/23 09:[address] 01/31/23 09:31 IMPRESSION: No acute intracranial abnormality. ASSESSMENT: ASPECTS (Radha Stroke Program Early CT Score) is 10. Head/Neck CTA 01/31/23 10:29 IMPRESSION: No large vessel stenosis or major branch occlusion. IMPRESSION: 1. Mild calcified plaque both carotid bifurcations. No significant carotid stenosis. 2. No evidence for vertebrobasilar insufficiency. REFERENCES: NASCET CRITERIA. The degree of stenosis in the cervical segment of the internal carotid artery is based on NASCET criteria. Normal is no stenosis. Mild is less than 50% stenosis. Moderate is 50-69% stenosis. Severe is 70% to 99% stenosis. Total occlusion is no detectable patent lumen. Laboratory Results WBC 12.0 10^3/uL (4.0-10.0) H 01/31/23 09:39 RBC 4.41 10^6/uL (4.1-5.3) 01/31/23 09:39 Hgb 13.4 g/dL (11.5-15.3) 01/31/23 09:39 Hct 40.8 % (37.0-47.0) 01/31/23 09:39 MCV 92.5 fl (81-99) 01/31/23 09:39 MCH 30.4 pg (28.0-34.0) 01/31/23 09:39 MCHC 32.8 g/dL (30.0-36.0) 01/31/23 09:39 RDW 15.3 % (12.1-15.1) H 01/31/23 09:39 Plt Count 112 10^3/cmm (130-400) L 01/31/23 09:39 MPV 9.5 fL (7.4-10.4) 01/31/23 09:39 Neut % (Auto) 84.9 % 01/31/23 09:39 Lymph % (Auto) 5.3 % 01/31/23 09:39 [place] % (Auto) 8.6 % 01/31/23 09:39 Eos % (Auto) 0.2 % 01/31/23 09:39 Baso % (Auto) 0.3 % 01/31/23 09:39 Neut # (Auto) 10.19 10^3/uL (1.8-7.7) H 01/31/23 09:39 Lymph # (Auto) 0.6 10^3/uL (0.8-4.8) L 01/31/23 09:39 [place] # (Auto) 1.0 10^3/uL (0.2-0.9) H 01/31/23 09:39 Eos # (Auto) 0.0 10^3/uL (0.0-0.8) 01/31/23 09:39 Baso # (Auto) 0.0 10^3/uL (0.0-0.1) 01/31/23 09:39 Nucleated RBC % (auto) 0 % 01/31/23 09:39 Nucleated RBCs # 0.0 /100WBC 01/31/23 09:39 PT 16.80 SECONDS (12.1-14.9) H 01/31/23 09:39 INR 1.32 (0.8-1.2) H 01/31/23 09:39 APTT 28.3 SECONDS (23.9-36.7) 01/31/23 09:39 Sodium 136 mmol/L (136-145) 01/31/23 09:39 Potassium 3.9 mmol/L (3.5-5.1) 01/31/23 09:39 Chloride 100 mmol/L (98-107) 01/31/23 09:39 Carbon Dioxide 24 mmol/L (22-29) 01/31/23 09:39 Anion Gap 15.9 (5-19) 01/31/23 09:39 BUN 16 mg/dL (8-23) 01/31/23 09:39 Creatinine 1.3 mg/dL (0.5-0.9) H 01/31/23 09:39 GFR Calculation Not Reportable 01/31/23 09:39 Glucose 107 mg/dL (65-115) 01/31/23 09:39 POC Glucose 95 mg/dL (70-110) 01/31/23 09:53 Calculated Osmolality 284 mOsm/kg (285-295) L 01/31/23 09:39 Calcium 9.2 mg/dL (8.5-10.5) 01/31/23 09:39 Total Bilirubin 0.9 mg/dL (0.15-1.2) 01/31/23 09:39 AST 30 U/L (0-32) 01/31/23 09:39 ALT 30 U/L (0-33) 01/31/23 09:39 Alkaline Phosphatase 89 U/L (35-105) 01/31/23 09:39 Total Protein 6.7 g/dL (6.6-8.7) 01/31/23 09:39 Albumin 3.6 g/dL (3.5-5.2) 01/31/23 09:39 Globulin 3.1 g/dL (1.3-4.6) 01/31/23 09:39 Urine Color Yellow (Yellow) 01/31/23 10:07 Urine Appearance Hazy (CLEAR) A 01/31/23 10:07 Urine pH 5 (5-7) 01/31/23 10:07 Ur Specific [place] 1.005 (1.005-1.030) 01/31/23 10:07 Urine Protein Neg (Negative) 01/31/23 10:07 Urine Glucose (UA) Norm (Normal) 01/31/23 10:07 Urine Ketones Negative (Negative) 01/31/23 10:07 Urine Blood 3+ (Negative) H 01/31/23 10:07 Urine Nitrate Positive (Negative) H 01/31/23 10:07 Urine Bilirubin Neg (Negative) 01/31/23 10:07 Urine Urobilinogen Norm mg/dL (Negative) 01/31/23 10:07 Ur Leukocyte Esterase 2+ (Negative) H 01/31/23 10:07 Urine RBC 5-10 /hpf (0-2) H 01/31/23 10:07 Urine WBC 55-80 /hpf (0-5) H 01/31/23 10:07 Ur Squamous Epith Cells 0-4 /hpf (0-5) H 01/31/23 10:07 Amorphous Sediment Not Reportable 01/31/23 10:07 Urine Bacteria 4+ /hpf (NONE) H 01/31/23 10:07 Discharge Plan Discharge Patient Disposition: Home Clinical Impression: Headache, chronic migraine without aura, Urinary tract infection, Dysarthria Condition: Stable Prescriptions: New cephalexin 500 mg capsule 500 mg PO TID 7 Days Qty: 21 0RF ondansetron 4 mg tablet,disintegrating 4 mg PO Q8H PRN (Reason: nausea and vomiting) 4 Days Qty: 10 0RF No Action omega 9-aun-juq-fish oil [Fish Oil] 300-1,000 mg capsule 1 cap PO DAILY potassium chloride 20 mEq tablet extended release 20 meq PO DAILY lisinopril 2.5 mg tablet 2.5 mg PO DAILY pregabalin [Lyrica] 200 mg capsule 200 mg PO BEDTIME red yeast rice 600 mg capsule 600 mg PO BID Rx Instructions: give with meal/snack metoprolol tartrate 100 mg tablet 100 mg PO BID furosemide 20 mg tablet 20 mg PO DAILY cholecalciferol (vitamin D3) 50 mcg (2,000 unit) capsule 50 mcg PO DAILY Unisom (doxylamine) 25 mg tablet 25 mg PO BEDTIME PRN (Reason: Sleep) Humira Pen 40 mg/0.8 mL pen injector kit 40 mg SUBCUT Q14D Qty: 2 3RF Eliquis 5 mg tablet 5 mg PO BID Qty: 60 3RF hydroxychloroquine 200 mg tablet See Rx Instructions PO DAILY Qty: 135 1RF Rx Instructions: alternate taking 1 tab today and then 2 tabs tomorrow. PO daily; prednisone 2.5 mg tablet 2.5 mg PO DAILY Qty: 90 1RF diclofenac sodium 1 % gel 2 g topical QID Qty: 100 2RF Rx Instructions: apply to affected area as needed sumatriptan succinate 100 mg tablet See Rx Instructions PO .COMPLEX Rx Instructions: take 1 tab at onset of headache; if no relief, may repeat 1 tab after at least 2 hrs; max = 2 tabs/24 hrs PO promethazine 12.5 mg tablet 12.5 mg PO Q6H PRN (Reason: Nausea) prednisone 10 mg tablet See Rx Instructions PO .COMPLEX PRN (Reason: joint pain) Qty: 30 1RF Rx Instructions: take 1 tab daily for 3-7 days prn joint pain flare PO PRN; levothyroxine [Synthroid] 100 mcg tablet 100 mcg PO DAILY acetaminophen 500 mg Capsule 1,000 mg PO Q6H PRN (Reason: Pain) vitamin E 400 unit Capsule 400 unit PO BID pantoprazole 40 mg tablet,delayed release (DR/EC) 40 mg PO BID Qty: 60 0RF Discharge Orders: Discharge ED (Routine); Ordered 01/31/23 Ordered By: Silvano Byrne Referrals: Mihaela Miguel MD [Primary Care Provider] - Discharge Diet: Usual diet Discharge Activity: Increase activity as tolerated Patient Instructions: Opioid Safety, Pain Management Activity Restrictions/Additional Instructions: As we discussed he did not have any evidence of an acute stroke today. We recommend you stop taking the sumatriptan as that may have contributed to your presentation today with your headache medicine may cause some changes in your blood vessels which can mimic a stroke. We also do recommend you take 81 mg of aspirin a day in addition to all your usual medications to help reduce any possible stroke risk. Take this with meals. We have prescribed an antibiotic to take for the next 7 days for your urinary tract infection. You should follow-up with neurology Dr. Aly in approximately 2 weeks. If you have any new or worsening symptoms or other concerns you are welcome to return to the emergency department at any time. Coding Level of Care Code ED [employer] Project Manager for [employer]
--- NOTE | 2023-02-02 08:54 | DCPLANNER ---
Addendum entered by Bambi Dougherty 02/20/23 10:54: Patient did attend this appointment with neurology Addendum entered by Bambi Dougherty 02/05/23 10:51: Patient has a follow up appointment scheduled for Friday, February 10, 2023 at 2:[address] Aly at neurology. Original Note: senior product development manager had message to schedule a follow up appointment for patient with neurology. senior product development manager sent patients information to the front office staff at neurology. Patients information will be printed and reviewed. Clinic will call patient with appointment information.
== END 2023-01-31 13:14 | disposition home or self-care (01) ==
PROVIDERS: Emergency Provider Emergency Medicine; PCP Family Medicine
DX: N39.0 Urinary tract infection, site not specified (principal); R47.1 Dysarthria and anarthria; G43.909 Migraine, unspecified, not intractable, without status migrainosus
CPT/HCPCS: 36416; 70450; 70496; 70498; 80053; 81001; 82962; 85025; 85610; 85730; 87077; 87086; 87186; 93005; 99285; Q9967

== ENCOUNTER 2023-02-09 20:27 | Inpatient (IN) | payer MEDICARE, OTHER, SELFPAY ==
[2023-02-09 20:49] VITALS: BMI 40.6
[2023-02-09 20:54] VITALS: BP 109/61; PULSE 102; RESP 16; TEMP 36.9; O2SAT 94
[2023-02-09] MEDS: sodium chloride 0.9% 1,000 ML 999 ML IV ×2 (21:49→22:29)
--- NOTE | 2023-02-09 21:51 | W.ED.FALL ---
HPI - Fall General: Chief Complaint: Fall Stated Complaint: nausea, fall, headache Time Seen by Provider: 02/09/23 21:30 Source: patient Mode of arrival: ambulatory Limitations: no limitations History of Present Illness: 72-year-old female states that she had had a fall today. States she went to the use the toilet and sat back far enough and fell. She states that she has been dealing with headaches since March she was seen here on the had a CT scan along with CT angio head neck that showed no acute abnormality she states she is continue to have headaches since then along with nausea and vomiting and weakness she feels like it is due to her headaches. She states she is scheduled to see neurologist tomorrow. She has been treated with Keflex and then Macrobid for UTI states she still feels like her urine is foul-smelling. She denies any diarrhea she has had some nausea and vomiting. Associated symptoms-after fall: Reports headache(s); Denies abdominal pain, chest pain or neck pain Review of Systems Const: Reports: malaise; Denies: fever(s) or chills Eyes: Denies: eye discomfort ENMT: Denies: throat pain or dental pain Card: Denies: chest pain Resp: Denies: dyspnea GI: Denies: abdominal pain, nausea, vomiting or diarrhea : Reports: dysuria Musc: Denies: neck pain or back pain Skin/Breast: Denies: rash Neuro: Reports: headache(s) PFS ED PFSH: Medical History Benign essential hypertension Bilateral leg edema CKD (chronic kidney disease) Dr Toure is following up on this Elevated cholesterol High risk medication use History of hip fracture Hypotension Hypothyroidism Immunization counseling Mitral regurgitation Osteoarthritis Osteopenia Recurrent pulmonary embolism Rheumatoid arthritis Rheumatoid arthritis with rheumatoid factor Surgical History History of appendectomy History of hip replacement History of hysterectomy History of parotid gland removal Family History Father CAD (coronary artery disease), Onset Age: 40 Lung disease Cancer Brother Cancer Stroke Grandmother Cancer Family/Other Cancer Mother Stroke Sister CAD (coronary artery disease), Onset Age: 55 [place] Other Arthritis COPD (chronic obstructive pulmonary disease) Hypertension Denies family history of Rheumatoid arthritis Diabetes Lupus Clotting disorder Dementia Chronic kidney disease (CKD) Suicide Anesthesia complication Bleeding disorder Social History Smoking and tobacco status: never smoked Alcohol intake: never Substance/Drug Use: never Physical Exam Const: COMMON NORMALS: patient oriented x3 and healthy appearing HENMT: COMMON NORMALS: normocephalic and atraumatic HEAD & SCALP: normocephalic and atraumatic Eye: COMMON NORMALS: Equal, round and reactive pupils present and EOMs intact bilaterally PUPIL: Yes Equal, round and reactive pupils present Neck/C-Spine: COMMON NORMALS: full ROM and supple Chest: COMMONS NORMALS: normal inspection of the chest and normal palpation of entire chest wall Resp: COMMON NORMALS: normal respiratory effort, No retractions, No use of accessory muscles and clear to auscultation bilaterally AUSCULTATION: clear to auscultation bilaterally Cardio: COMMON NORMALS: regular rate, regular rhythm and No murmurs present (Cardio) RATE: regular rate RHYTHM: regular rhythm GI: COMMON NORMALS: Normal to inspection, nondistended, normoactive bowel sounds present, Soft to palpation, non-tender and no masses PALPATION: Yes Soft to palpation Extremity: COMMON NORMALS: normal to inspection and full ROM Neuro: COMMON NORMALS: patient oriented x3, moves all extremities and no focal motor deficits Psych: COMMON NORMALS: mental status grossly normal, Normal thought process present and cooperative THOUGHT PROCESS: Normal thought process present Skin: COMMON NORMALS: no rashes or lesions noted and no wounds GENERAL SKIN EXAM: no rashes or lesions noted Course Vital Signs: Vital signs: Vital Signs Temperature 98.4 F 02/09/23 20:54 Pulse Rate 89 02/09/23 21:54 Respiratory Rate 16 02/09/23 22:24 Blood Pressure 134/81 02/09/23 22:24 Pulse Oximetry 99 02/09/23 22:24 Oxygen Delivery Me thod Room Air 02/09/23 22:24 MDM - Fall Medical Decision Making Patient presents here with weakness she does have a urinary tract infection she has failed outpatient treatment she has been on Keflex and Macrobid CT shows neoplasm versus pyelonephritis concern mainly for pyelonephritis she does have an elevated CRP and a white count we will start her on IV to biotics blood pressure here has been stable. Spoke to hospitalist will admit Lab Data 02/09/23 21:45 02/09/23 21:45 Radiology Impressions Hip/Pelvis X-Ray 02/09/23 21:57 IMPRESSION: No acute osseous abnormality of the left hip. Abdomen/Pelvis CT 02/09/23 22:26 IMPRESSION: Ill-defined hypodense lesions in bilateral kidneys measuring 2.9 cm on the right and 1.8 cm on the left raise concern for neoplasm (i.e. renal cell carcinoma) although non neoplastic etiology such as focal pyelonephritis may also be considered. Recommend renal ultrasound versus multiphasic CT/MR imaging for further characterization. Also recommend urinalysis to assess for urinary tract infection. COMMENTS: Consistent with the [employer]'s Incidental Findings Committee white paper (J Am Daniele Radiol 2018): Any incidental renal lesion less than 1 cm or classified as too small to characterize, or any incidental cystic renal lesion characterized as simple-appearing, is likely benign. No follow-up imaging is recommended for these lesions per consensus recommendations based on imaging criteria. Laboratory Results WBC 15.1 10^3/uL (4.0-10.0) H 02/09/23 21:45 RBC 4.14 10^6/uL (4.1-5.3) 02/09/23 21:45 Hgb 12.6 g/dL (11.5-15.3) 02/09/23 21:45 Hct 37.9 % (37.0-47.0) 02/09/23 21:45 MCV 91.5 fl (81-99) 02/09/23 21:45 MCH 30.4 pg (28.0-34.0) 02/09/23 21:45 MCHC 33.2 g/dL (30.0-36.0) 02/09/23 21:45 RDW 15.6 % (12.1-15.1) H 02/09/23 21:45 Plt Count 168 10^3/cmm (130-400) 02/09/23 21:45 MPV 9.7 fL (7.4-10.4) 02/09/23 21:45 Neut % (Auto) 80.6 % 02/09/23 21:45 Lymph % (Auto) 8.9 % 02/09/23 21:45 [place] % (Auto) 9.4 % 02/09/23 21:45 Eos % (Auto) 0.0 % 02/09/23 21:45 Baso % (Auto) 0.2 % 02/09/23 21:45 Neut # (Auto) 12.18 10^3/uL (1.8-7.7) H 02/09/23 21:45 Lymph # (Auto) 1.3 10^3/uL (0.8-4.8) 02/09/23 21:45 [place] # (Auto) 1.4 10^3/uL (0.2-0.9) H 02/09/23 21:45 Eos # (Auto) 0.0 10^3/uL (0.0-0.8) 02/09/23 21:45 Baso # (Auto) 0.0 10^3/uL (0.0-0.1) 02/09/23 21:45 Nucleated RBC % (auto) 0 % 02/09/23 21:45 Nucleated RBCs # 0.0 /100WBC 02/09/23 21:45 Sodium 135 mmol/L (136-145) L 02/09/23 21:45 Potassium 3.6 mmol/L (3.5-5.1) 02/09/23 21:45 Chloride 104 mmol/L (98-107) 02/09/23 21:45 Carbon Dioxide 17 mmol/L (22-29) L 02/09/23 21:45 Anion Gap 17.6 (5-19) 02/09/23 21:45 BUN 17 mg/dL (8-23) 02/09/23 21:45 Creatinine 1.2 mg/dL (0.5-0.9) H 02/09/23 21:45 GFR Calculation Not Reportable 02/09/23 21:45 Glucose 115 mg/dL (65-115) 02/09/23 21:45 Calculated Osmolality 282 mOsm/kg (285-295) L 02/09/23 21:45 Calcium 9.0 mg/dL (8.5-10.5) 02/09/23 21:45 Total Bilirubin 0.7 mg/dL (0.15-1.2) 02/09/23 21:45 AST 22 U/L (0-32) 02/09/23 21:45 ALT 25 U/L (0-33) 02/09/23 21:45 Alkaline Phosphatase 90 U/L (35-105) 02/09/23 21:45 C-Reactive Protein 326.4 mg/L (0.0-4.9) H 02/09/23 21:45 Total Protein 7.0 g/dL (6.6-8.7) 02/09/23 21:45 Albumin 3.9 g/dL (3.5-5.2) 02/09/23 21:45 Globulin 3.1 g/dL (1.3-4.6) 02/09/23 21:45 Urine Color Dark yellow (Yellow) 02/09/23 22:17 Urine Appearance Cloudy (CLEAR) A 02/09/23 22:17 Urine pH 5 (5-7) 02/09/23 22:17 Ur Specific [place] 1.020 (1.005-1.030) 02/09/23 22:17 Urine Protein 1+ (Negative) H 02/09/23 22:17 Urine Glucose (UA) Norm (Normal) 02/09/23 22:17 Urine Ketones 1+ (Negative) H 02/09/23 22:17 Urine Blood 3+ (Negative) H 02/09/23 22:17 Urine Nitrate Positive (Negative) H 02/09/23 22:17 Urine Bilirubin Neg (Negative) 02/09/23 22:17 Urine Urobilinogen Neg mg/dL (Negative) 02/09/23 22:17 Ur Leukocyte Esterase Negative (Negative) 02/09/23 22:17 Urine RBC 25-40 /hpf (0-2) H 02/09/23 22:17 Urine WBC 0-4 /hpf (0-5) H 02/09/23 22:17 Ur Squamous Epith Cells None /hpf (0-5) 02/09/23 22:17 Amorphous Sediment Not Reportable 02/09/23 22:17 Urine Bacteria 3+ /hpf (NONE) H 02/09/23 22:17 Discharge Plan Discharge Patient Disposition: Admitted As Inpatient Clinical Impression: Acute cystitis, Weakness Condition: Stable Prescriptions: No Action omega 6-bri-cdq-fish oil [Fish Oil] 300-1,000 mg capsule 1 cap PO DAILY potassium chloride 20 mEq tablet extended release 20 meq PO DAILY lisinopril 2.5 mg tablet 2.5 mg PO DAILY pregabalin [Lyrica] 200 mg capsule 200 mg PO BEDTIME red yeast rice 600 mg capsule 600 mg PO BID Rx Instructions: give with meal/snack metoprolol tartrate 100 mg tablet 100 mg PO BID furosemide 20 mg tablet 20 mg PO DAILY cholecalciferol (vitamin D3) 50 mcg (2,000 unit) capsule 50 mcg PO DAILY Unisom (doxylamine) 25 mg tablet 25 mg PO BEDTIME PRN (Reason: Sleep) Humira Pen 40 mg/0.8 mL pen injector kit 40 mg SUBCUT Q14D Qty: 2 3RF Eliquis 5 mg tablet 5 mg PO BID Qty: 60 3RF hydroxychloroquine 200 mg tablet See Rx Instructions PO DAILY Qty: 135 1RF Rx Instructions: alternate taking 1 tab today and then 2 tabs tomorrow. PO daily; prednisone 2.5 mg tablet 2.5 mg PO DAILY Qty: 90 1RF diclofenac sodium 1 % gel 2 g topical QID Qty: 100 2RF Rx Instructions: apply to affected area as needed sumatriptan succinate 100 mg tablet See Rx Instructions PO .COMPLEX Rx Instructions: take 1 tab at onset of headache; if no relief, may repeat 1 tab after at least 2 hrs; max = 2 tabs/24 hrs PO promethazine 12.5 mg tablet 12.5 mg PO Q6H PRN (Reason: Nausea) prednisone 10 mg tablet See Rx Instructions PO .COMPLEX PRN (Reason: joint pain) Qty: 30 1RF Rx Instructions: take 1 tab daily for 3-7 days prn joint pain flare PO PRN; levothyroxine [Synthroid] 100 mcg tablet 100 mcg PO DAILY acetaminophen 500 mg Capsule 1,000 mg PO Q6H PRN (Reason: Pain) vitamin E 400 unit Capsule 400 unit PO BID pantoprazole 40 mg tablet,delayed release (DR/EC) 40 mg PO BID Qty: 60 0RF Referrals: Mihaela Miguel MD [Primary Care Provider] - Coding Level of Care Code ED Grounds Worker for [facility]
[2023-02-09 21:52] VITALS: RESP 18; O2SAT 94
[2023-02-09] MEDS: ondansetron 2 mg/ML SDV 2 mL 4 MG IVP (21:52)
[2023-02-09] MEDS: morphine 4 mg/mL SDV 1 mL IVP (21:52)
[2023-02-09 21:54] VITALS: BP 131/79; PULSE 89; RESP 17; O2SAT 94
[2023-02-09 21:54] LABS: Basophils % 0.2 %; Hematocrit 37.9 % (37.0-47.0); Hemoglobin 12.6 g/dL (11.5-15.3); Lymphocytes # 1.3 10^3/uL (0.8-4.8); Lymphocytes % 8.9 %; Mean Corpuscular HGB Conc 33.2 g/dL (30.0-36.0); Mean Corpuscular Hemoglobin 30.4 pg (28.0-34.0); Mean Corpuscular Volume 91.5 fl (81-99); Mean Platelet Volume 9.7 fL (7.4-10.4); Monocytes # 1.4 10^3/uL (0.2-0.9); Monocytes % 9.4 %; Neutrophils # 12.18 10^3/uL (1.8-7.7); Neutrophils % 80.6 %; Nucleated Red Blood Cells % 0 %; Platelet Count 168 10^3/cmm (130-400); Red Blood Count 4.14 10^6/uL (4.1-5.3); Red Cell Distribution Width 15.6 % (12.1-15.1); White Blood Count 15.1 10^3/uL (4.0-10.0)
--- NOTE | 2023-02-09 21:57 | XRR_ITS ---
PROCEDURE INFORMATION: Exam: XR Left Hip Exam date and time: 02/09/2023 10:35 PM Age: 72 years old Clinical indication: Injury or trauma; Fall; Blunt trauma (contusions or hematomas); Left; Prior surgery; Surgery date: 6+ months; Surgery type: Lt hip TECHNIQUE: Imaging protocol: Radiologic exam of the left hip. Views: 2 or 3 views hip with pelvis when performed. COMPARISON: CR XR hip LT 2-3V wo/w pel* [id number] 10/26/2019 3:20 PM FINDINGS: Bones/joints: Status post left hip arthroplasty without evidence hardware complication. No acute fracture or dislocation. Healed fracture deformity of the left greater trochanter. Soft tissues: Unremarkable. XR/XR hip LT 2-3V wo/w pel* [id number] IMPRESSION: No acute osseous abnormality of the left hip.
[2023-02-09 22:09] LABS: Alanine Aminotransferase 25 U/L (0-33); Albumin Level 3.9 g/dL (3.5-5.2); Alkaline Phosphatase 90 U/L (35-105); Anion Gap 17.6 (5-19); Aspartate Amino Transferase 22 U/L (0-32); Blood Urea Nitrogen 17 mg/dL (8-23); C Reactive Protein 326.4 mg/L (0.0-4.9); Carbon Dioxide 17 mmol/L (22-29); Chloride 104 mmol/L (98-107); Globulin 3.1 g/dL (1.3-4.6); Glucose 115 mg/dL (65-115); Osmolality Calculated 282 mOsm/kg (285-295); Potassium 3.6 mmol/L (3.5-5.1); Sodium 135 mmol/L (136-145); Total Bilirubin 0.7 mg/dL (0.15-1.2)
[2023-02-09 22:24] VITALS: BP 134/81; RESP 16; O2SAT 99
--- NOTE | 2023-02-09 22:26 | CTR_ITS ---
PROCEDURE INFORMATION: Exam: CT Abdomen And Pelvis With Contrast Exam date and time: 02/09/2023 10:43 PM Age: 72 years old Clinical indication: Vomiting; Prior surgery; Surgery date: 6+ months; Surgery type: Gb, hiatal hernia, appy, hysterectomy TECHNIQUE: Imaging protocol: Computed tomography of the abdomen and pelvis with contrast. Radiation optimization: All CT scans at this facility use at least one of these dose optimization techniques: automated exposure control; mA and/or kV adjustment per patient size (includes targeted exams where dose is matched to clinical indication); or iterative reconstruction. Contrast material: OMNI 350; Contrast volume: 100 ml; Contrast route: INTRAVENOUS (IV); REPORTING DATA: Count of CT and Cardiac NM exams in prior 12 months: This patient has received 3 known CTs and 0 known cardiac nuclear medicine studies in the 12 months prior to the current study. COMPARISON: CR (PELVIS, ) 02/09/2023 10:35 PM RADIATION DOSE METRICS: Total DLP (mGy-cm): 973.3 FINDINGS: Diaphragm: Small hiatal hernia. Liver: Intrahepatic and extrahepatic biliary ductal dilation which is likely related to post cholecystectomy state. Calcified granulomas in the liver. Gallbladder and bile ducts: Status post cholecystectomy. Pancreas: Unremarkable. Spleen: Calcified granulomas in the spleen. Adrenal glands: Unremarkable. Kidneys and ureters: Hypodense lesion in the right kidney measuring 2.9 cm. Additional subtle hypodense lesion in the left kidney measuring 1.8 cm on series 3, image 30. Subcentimeter hypodensity in the left kidney. No hydronephrosis. Stomach and bowel: Fluid levels in the rectum and colon compatible with diarrheal state. No evidence of bowel obstruction. No significant bowel wall thickening. Appendix: Status post appendectomy. Intraperitoneal space: Unremarkable. Vasculature: Mild atherosclerotic disease in the abdomen and pelvis. Lymph nodes: Unremarkable. Urinary bladder: Unremarkable as visualized. Reproductive: Status post hysterectomy. Bones/joints: Status post left hip arthroplasty. Soft tissues: Unremarkable. CT/CT abdomen pelvis w con* [id number] IMPRESSION: Ill-defined hypodense lesions in bilateral kidneys measuring 2.9 cm on the right and 1.8 cm on the left raise concern for neoplasm (i.e. renal cell carcinoma) although non neoplastic etiology such as focal pyelonephritis may also be considered. Recommend renal ultrasound versus multiphasic CT/MR imaging for further characterization. Also recommend urinalysis to assess for urinary tract infection. COMMENTS: Consistent with the [employer]'s Incidental Findings Committee white paper (J Am Daniele Radiol 2018): Any incidental renal lesion less than 1 cm or classified as too small to characterize, or any incidental cystic renal lesion characterized as simple-appearing, is likely benign. No follow-up imaging is recommended for these lesions per consensus recommendations based on imaging criteria.
[2023-02-09] MEDS: iohexol 350 mg/mL 500 mL Btl (per mL) IV (22:37)
[2023-02-09 22:54] LABS: Add Urine Microscopic? YES; Bilirubin Urine Neg (Negative); Blood Urine 3+ (Negative); Glucose Urine UA Norm (Normal); Ketones Urine 1+ (Negative); Leukocyte Esterase Urine Negative (Negative); Nitrate Urine Positive (Negative); Protein Urine 1+ (Negative); Urine Appearance Cloudy (CLEAR); Urine Color Dark Yellow (Yellow); Urobilinogen Urine Neg (Negative); pH Urine 5 (5-7)
[2023-02-09 22:55] LABS: Add Urine Culture? Yes; Bacteria Urine 3+ /hpf; RBC Urine 25-40 /hpf (0-2); WBC Urine 0-4 /hpf (0-5)
[2023-02-09] MEDS: cefTRIAXone 1,000 MG in sodium chloride 0.9% (plus) 50 ML 100 MG IV (23:48)
[2023-02-10] VITALS (10 sets, daily range): BP systolic 93–128; BP diastolic 59–77; PULSE 82–115; RESP 17–18; TEMP 36.3–37.6; O2SAT 94–96
--- NOTE | 2023-02-10 01:10 | US_ITS ---
WS: [id number] RENAL ULTRASOUND HISTORY: CT with abnormal density each kidney; US or MRI recommended COMPARISON: 03/01/2021 TECHNIQUE: 2-D and color Doppler imaging of the kidney submitted. Right kidney: 9.8 cm x 4.1 cm x 4.4 cm. Cortex: 1.2 cm Normal size. Again noted is mild thinning and loss of volume lower pole right kidney. No obstruction or mass. Left kidney: 9.5 cm x 4.4 cm x 3.2 cm. Cortex: 1.3 cm Normal echogenicity with no hydronephrosis or mass. Aorta: Normal. Urinary Bladder: Normal distention. IMPRESSION: 1. No renal obstruction or mass. 2. Very minimal thinning and volume loss lower pole right kidney is unchanged.
[2023-02-10] MEDS: acetaminophen 325 mg Tablet 650 MG PO ×2 (02:00→16:53)
[2023-02-10] MEDS: sodium chlor 0.9% + KCl 20 mEq 20 MEQ/1,000 ML BAG 100 MEQ IV ×3 (02:01→20:16)
[2023-02-10] MEDS: ondansetron 2 mg/ML SDV 2 mL 4 MG IVP (03:26)
[2023-02-10 05:30] LABS: Basophils % 0.1 %; Eosinophils % 0.1 %; Hematocrit 30.9 % (37.0-47.0); Hemoglobin 10.2 g/dL (11.5-15.3); Lymphocytes # 1.4 10^3/uL (0.8-4.8); Lymphocytes % 10.7 %; Mean Corpuscular Hemoglobin 30.8 pg (28.0-34.0); Mean Corpuscular Volume 93.4 fl (81-99); Mean Platelet Volume 9.5 fL (7.4-10.4); Monocytes # 1.3 10^3/uL (0.2-0.9); Monocytes % 9.4 %; Neutrophils # 10.64 10^3/uL (1.8-7.7); Nucleated Red Blood Cells % 0 %; Platelet Count 150 10^3/cmm (130-400); Red Blood Count 3.31 10^6/uL (4.1-5.3); Red Cell Distribution Width 15.8 % (12.1-15.1); White Blood Count 13.5 10^3/uL (4.0-10.0)
[2023-02-10 05:47] LABS: Lactate (Lactic Acid level) 0.7 mmol/L (0.5-2.2)
[2023-02-10 05:48] LABS: Anion Gap 13.1 (5-19); Blood Urea Nitrogen 14 mg/dL (8-23); C Reactive Protein 260.1 mg/L (0.0-4.9); Calcium 7.7 mg/dL (8.5-10.5); Carbon Dioxide 18 mmol/L (22-29); Chloride 111 mmol/L (98-107); Glucose 110 mg/dL (65-115); Magnesium 1.7 mg/dL (1.7-2.3); Osmolality Calculated 289 mOsm/kg (285-295); Phosphorus 2.2 mg/dL (2.5-4.5); Potassium 3.1 mmol/L (3.5-5.1); Sodium 139 mmol/L (136-145)
--- NOTE | 2023-02-10 07:26 | P.HP_ITS ---
Providers/Chief Complaint Admitting Physician: Michelle Ku MD Primary Care Provider: Mihaela Miguel MD Chief Complaint: nausea, fall, headache History of Present Illness Corina Vasques is a 72 year old female who presented to the emergency room with chief complaint of a fall along with nausea associated with dry heaves, general malaise and weakness. In addition she has continued to have headaches. Corina was recently seen in the emergency room on January 31. At that time she presented with slurred speech ultimately felt to represent transient ischemic attack. Additionally she was felt to have migraine headaches. She had been seen by Dr. Aly in the ER and is due to follow-up tomorrow. On January 31 Mrs. Vasques was also found to have urinary tract infection. Keflex and subsequently Macrobid were prescribed urine culture came back from the 01/31 ER visit with pansensitive E. coli. She has been taking the antibiotics as prescribed but has not really clinically had significant improvement overall as she has continued to generally not feel well. She has not had any definitive fevers that she knows of but has had some episodes of feeling hot and sweaty. S he reports decreased urine output. No particular dysuria or hematuria. No flank pain. She has noted some increase in loose stools. I will note that she does have a history of rheumatoid arthritis and is on Humira. Last dose of Humira was this past Thursday. In addition she is on 2.5 of prednisone daily and takes additional steroids when she has a flareup. Most recent flare was a few weeks ago. Her joints are currently doing okay. This evening patient fell when she was going to the bathroom. She simply misjudged where she was. No injury associated with fall. Nausea preceded the fall as did the dry heaves headache. Work-up in the emergency room today revealed a white count of 15,000, a CRP that was significantly elevated at [address] of the abdomen and pelvis with ill- defined hypodense lesions in both kidneys measuring 2.9 cm on the right and 1.8 cm on the left raising concern for neoplasm or focal pyelonephritis. She was given Rocephin in the emergency room and request was made for admission. Review of Systems General: Reports: Other (ROS as per HPI or as otherwise noted here) Const: Denies: change in weight Card: Reports: dyspnea on exertion; Denies: chest pain or palpitations Resp: Reports: dyspnea (Ever since she had COVID in 05/2022) Medications/Allergies Home Medications Medication Instructions Recorded Confirmed Last Taken Type furosemide 20 mg tablet 20 mg PO DAILY 08/11/19 02/10/23 2 Days Ago History ~02/08/23 metoprolol tartrate 100 mg tablet 100 mg PO BID 08/11/19 02/10/23 2 Days Ago History ~02/08/23 omega 1-myv-bgy-fish oil 300 1 cap PO DAILY 08/15/19 02/10/23 2 Days Ago History mg-1,000 mg capsule (Fish Oil) ~02/08/23 potassium chloride 20 mEq 20 meq PO DAILY 08/15/19 02/10/23 2 Days Ago History tablet,extended release ~02/08/23 cholecalciferol (vitamin D3) 50 50 mcg PO DAILY 04/11/20 02/10/23 2 Days Ago History mcg (2,000 unit) capsule ~02/08/23 doxylamine succinate 25 mg tablet 25 mg PO BEDTIME PRN Sleep 04/11/20 02/10/23 01/30/23 History (Unisom (doxylamine)) pregabalin 200 mg capsule (Lyrica) 200 mg PO BEDTIME 06/12/20 02/10/23 2 Days Ago History ~02/08/23 acetaminophen 500 mg capsule 1,000 mg PO Q6H PRN Pain 06/27/20 02/10/23 06/28/20 History levothyroxine 100 mcg tablet 100 mcg PO DAILY 06/27/20 02/10/23 2 Days Ago History (Synthroid) ~02/08/23 vitamin E 268 mg (400 unit) capsule 400 unit PO BID 06/27/20 02/10/23 2 Days Ago History ~02/08/23 pantoprazole 40 mg tablet,delayed 40 mg PO BID #60 tabs 06/29/20 02/10/23 2 Days Ago Rx release ~02/08/23 lisinopril 2.5 mg tablet 2.5 mg PO DAILY 09/12/20 02/10/23 2 Days Ago History ~02/08/23 red yeast rice 600 mg capsule 600 mg PO BID 08/21/21 02/10/23 2 Days Ago History ~02/08/23 promethazine 12.5 mg tablet 12.5 mg PO Q6H PRN Nausea 09/30/22 02/10/23 Unknown History sumatriptan succinate 100 mg tablet See Rx Instructions PO .COMPLEX 09/30/22 02/10/23 01/31/23 History PRN Migraine Headache adalimumab 40 mg/0.8 mL 40 mg (0.8 mL) SUBCUT Q14D #2 ea 01/06/23 02/10/23 01/25/23 Rx subcutaneous pen kit (Humira Pen) apixaban 5 mg tablet (Eliquis) 5 mg PO BID #60 tabs 01/06/23 02/10/23 2 Days Ago Rx ~02/08/23 diclofenac sodium 1 % topical gel 2 g topical QID #100 grams 01/06/23 01/31/23 Unknown Rx hydroxychloroquine 200 mg tablet See Rx Instructions PO DAILY #135 01/06/23 02/10/23 2 Days Ago Rx tabs ~02/08/23 prednisone 2.5 mg tablet 2.5 mg PO DAILY 02/10/23 02/10/23 02/09/23 History Allergies Allergy/AdvReac Type Severity Reaction Status Date / Time azithromycin [From Zithromax] Allergy ADR-Hyperte Verified 01/06/23 14:55 nsion duloxetine [From Cymbalta] Allergy PT states Verified 01/06/23 14:55 she felt like she was having mini seizures gabapentin Allergy ADR-Fatigue Verified 01/31/23 10:48 d leflunomide Allergy numbness Verified 01/06/23 14:55 and tingling of feet naproxen Allergy edema, Verified 01/06/23 14:55 itching nifedipine [From Procardia] Allergy ADR-Hyperte Verified 01/06/23 14:55 nsion hydrocodone [From Vicodin] AdvReac itching Verified 01/06/23 14:55 PFSH Acute PFSH: Medical History (Updated 02/10/23 @ 07:57 by Michelle Ku MD) Benign essential hypertension Bilateral leg edema CKD (chronic kidney disease) Closed fracture of greater trochanter of left femur (06/2019) COVID-19 (05/2022) Elevated cholesterol High risk medication use History of breast cancer Radiation therapy History of hip fracture Hypotension Hypothyroidism Mitral regurgitation Osteoarthritis Osteopenia Recurrent pulmonary embolism Rheumatoid arthritis with rheumatoid factor TIA (transient ischemic attack) Surgical History (Updated 02/10/23 @ 07:55 by Michelle Ku MD) History of appendectomy History of colonoscopy 01/2021 History of hip replacement (06/2018) History of hysterectomy History of lumpectomy History of parotid gland removal Family History Father CAD (coronary artery disease), Onset Age: 40 Lung disease Cancer Brother Cancer Stroke Grandmother Cancer Family/Other Cancer Mother Stroke Sister CAD (coronary artery disease), Onset Age: 55 [place] Other Arthritis COPD (chronic obstructive pulmonary disease) Hypertension Denies family history of Rheumatoid arthritis Diabetes Lupus Clotting disorder Dementia Chronic kidney disease (CKD) Suicide Anesthesia complication Bleeding disorder Social History Smoking and tobacco status: never smoked Alcohol intake: never Substance/Drug Use: never Vitals/I&O/Wt Last Vital Signs Temp 97.3 F L 02/10/23 04:00 Pulse 89 02/10/23 04:49 Resp 17 02/10/23 04:00 BP 93/59 02/10/23 04:00 Pulse Ox 94 02/10/23 04:00 O2 Del Method Room Air 02/10/23 01:39 02/09/23 02/10/23 02/10/23 22:59 06:59 14:59 Intake Total 1000 / 1000 1050 / 2050 Balance 1000 / 1000 1050 / 2050 Weight last 48 hrs Weight 97.522 kg Physical Exam Narrative: Patient is awake and alert, able to provide history. Normocephalic, extraocular movements are intact, slightly dry mucous membranes. Neck is supple. Lungs are clear to auscultation bilaterally without any rales rhonchi or wheezes. Cardiovascular exam reveals a regular rhythm, slightly distant heart sounds but no murmurs gallops or rubs noted abdomen is soft, no flank tenderness, positive bowel sounds. No pitting edema Data 02/10/23 05:20 02/10/23 05:20 A&P Assessment and plan (1) Weakness: Associated with her accidental fall this evening. Recently diagnosed with TIA on January 31 though presentation then was with slurred speech. Is just generally weak and has not been feeling well. Suspect secondary to persistent infectious/inflammatory process. (2) Acute pyelonephritis: Present on admission in a patient who has been on cephalexin and Macrobid. Recent urine culture showed pansensitive E. coli but despite treatment has continued to have symptoms. (3) Lesion of both [place] kidneys: Ill-defined hypodense lesions noted in bilateral kidneys described as concerning for neoplasm or focal pyelonephritis. Concern in this immunocompromised patient on Humira and steroids is early abscess formation especially considering the very high CRP level (4) High risk medication use: Chronically on Humira which she takes on Sundays, daily prednisone with periodic burst of steroids at higher doses both for rheumatoid arthritis (5) Rheumatoid arthritis with rheumatoid factor: Follows with Dr. Gan Qualifiers: Rheumatoid arthritis location: multiple sites Qualified Code(s): M05.79 - Rheumatoid arthritis with rheumatoid factor of multiple sites without organ or systems involvement (6) Migraine: Persistent, being followed by Dr. Aly outpatient and was scheduled to see him 02/11 (7) Chronic anticoagulation: On chronic Eliquis due to history of recurrent PEs (8) CKD (chronic kidney disease): Stage IIIa at baseline, has followed with Dr. Toure in the past Qualifiers: Chronic kidney disease stage: stage 3 (moderate) Chronic kidney disease stage 3 subtype: stage 3a (GFR 45-59) Qualified Code(s): N18.31 - Chronic kidney disease, stage 3a (9) Chronic diarrhea: No recent change (10) SOB (shortness of breath): Chronic since he experienced COVID 19 in May 2022, has appointment with Dr Ospina soon Plan Inpatient admission Continue IV antibiotics Follow-up pending urine culture Serial CRP levels Renal ultrasound to further evaluate abnormalities identified on CT imaging IV fluids Patient is status post her Humira dosing on 02/08 We will continue usual prednisone at 2.5 mg daily but will need to watch closely for need to stress dose steroids Continue hydroxychloroquine Patient's headache/migraine pain is tolerable currently, will continue Tylenol and monitor Will need outpatient neurology follow-up rescheduled Continue home Eliquis Chronically on Lasix plus potassium which I will resume in a day or so Currently holding lisinopril Monitor renal function and electrolytes Most chronic vitamins are presently held due to nausea Monitor stool output for change necessitating intervention Monitor respiratory status with hydration Supportive care otherwise Findings, concerns and plans were discussed with patient and she was given an opportunity to ask questions. She is aware of the risk of rapid clinical decline from infections in the setting of immunocompromise from Humira and prednisone which are used for her rheumatoid arthritis treatment. VTE prophylaxis: Chronically on Eliquis GI Prophylaxis: PPI Telemetry: Currently ordered secondary to significant risk of rapid clinical decline Fernández: Not currently indicated Line(s): Peripheral IV Disposition plan: Anticipate home with close outpatient follow-up to usual providers and rescheduling of appointment with neurology which she will miss while in the hospital Code Status: Full code Attestations Medical Necessity Statement*: Anticipated stay greater than two midnights in this patient with evidence of pyelonephritis and worsening symptoms despite being on outpatient oral antibiotics. She is immunocompromised on Humira and prednisone and at high risk of rapid clinical decline. She has quite significantly elevated CRP. Plans are as noted. Diagnoses Weakness R53.1 Acute pyelonephritis N10 Lesion of both [place] kidneys N28.9 High risk medication use Z79.899 Rheumatoid arthritis with rheumatoid factor M05.79 Rheumatoid arthritis location: multiple sites Migraine G43.909 Chronic anticoagulation Z79.01 CKD (chronic kidney disease) N18.31 Chronic kidney disease stage: stage 3 (moderate) Chronic kidney disease stage 3 subtype: stage 3a (GFR 45-59) Chronic diarrhea K52.9 SOB (shortness of breath) R06.02
[2023-02-10] MEDS: pneumococcal (23 valent) SDV 0.5 mL IM (07:55)
[2023-02-10] MEDS: pantoprazole DR 40 mg Tablet PO (07:58)
[2023-02-10] MEDS: predniSONE 5 mg Tablet 2.5 MG PO (09:35)
[2023-02-10] MEDS: metoprolol tartrate 25 mg Tablet PO ×2 (09:36→20:15)
[2023-02-10] MEDS: hydroxychloroquine 200 mg Tablet 100 MG PO (09:37)
[2023-02-10] MEDS: potassium chloride ER 20 mEq Tablet PO ×4 (09:37→09:39)
[2023-02-10] MEDS: apixaban 5 mg Tablet PO ×2 (09:37→20:15)
[2023-02-10] MEDS: levothyroxine 100 mcg Tablet PO (09:38)
[2023-02-10] MEDS: promethazine 25 mg Tablet PO (11:40)
[2023-02-10] MEDS: cetylpyridinium Lozenge 1 EACH MUCOUS MEM (13:53)
--- NOTE | 2023-02-10 19:01 | P.EN_ITS ---
Event Note Event Note: Patient seen by clinical laboratory medical director. Chart reviewed. Agree with plan of care. Potassium supplementation ordered. Ceftriaxone ordered.
--- NOTE | 2023-02-10 19:01 | W.PM.EVENTAC ---
Event Note Event Note: Patient seen by denture contour wire specialist. Chart reviewed. Agree with plan of care. Potassium supplementation ordered. Ceftriaxone ordered.
[2023-02-10] MEDS: pregabalin 150 mg Capsule PO (20:15)
[2023-02-10] MEDS: cefTRIAXone 1,000 MG in sodium chloride 0.9% (plus) 50 ML 100 MG IV (22:37)
[2023-02-11] VITALS (8 sets, daily range): BP systolic 104–149; BP diastolic 63–87; PULSE 68–89; RESP 17–20; TEMP 36.6–37.3; O2SAT 94–98
[2023-02-11] MEDS: cetylpyridinium Lozenge 1 EACH MUCOUS MEM (03:47)
[2023-02-11 06:08] LABS: Basophils % 0.3 %; Eosinophils # 0.1 10^3/uL (0.0-0.8); Hematocrit 29.4 % (36-47); Lymphocytes # 1.1 10^3/uL (0.8-4.8); Lymphocytes % 10.9 %; Mean Corpuscular HGB Conc 32.3 g/dL (30-55); Mean Corpuscular Hemoglobin 30.6 pg (27-33); Mean Corpuscular Volume 94.8 fl (85-98); Mean Platelet Volume 10.1 fL (7.4-10.4); Monocytes # 0.9 10^3/uL (0.2-0.9); Monocytes % 9.3 %; Neutrophils # 7.48 10^3/uL (1.8-7.7); Neutrophils % 78.1 %; Nucleated Red Blood Cells % 0 %; Platelet Count 146 10^3/cmm (157-399); White Blood Count 9.59 10^3/uL (3.29-11.43)
[2023-02-11 06:33] LABS: Blood Urea Nitrogen 10 mg/dL (8-23); Calcium 8.1 mg/dL (8.5-10.5); Carbon Dioxide 17 mmol/L (22-29); Chloride 115 mmol/L (98-107); Glucose 108 mg/dL (65-115); Magnesium 1.8 mg/dL (1.7-2.3); Osmolality Calculated 292 mOsm/kg (285-295); Phosphorus 1.7 mg/dL (2.5-4.5); Sodium 141 mmol/L (136-145)
[2023-02-11 06:35] LABS: C Reactive Protein 229.1 mg/L (0.0-4.9)
[2023-02-11] MEDS: acetaminophen 325 mg Tablet 650 MG PO ×2 (08:50→20:04)
[2023-02-11] MEDS: apixaban 5 mg Tablet PO ×2 (08:51→20:03)
[2023-02-11] MEDS: predniSONE 5 mg Tablet 2.5 MG PO (08:51)
[2023-02-11] MEDS: levothyroxine 100 mcg Tablet PO (08:51)
[2023-02-11] MEDS: potassium chloride ER 20 mEq Tablet PO (08:51)
[2023-02-11] MEDS: hydroxychloroquine 200 mg Tablet 100 MG PO (08:51)
[2023-02-11] MEDS: metoprolol tartrate 25 mg Tablet PO ×2 (08:51→20:09)
[2023-02-11] MEDS: pantoprazole DR 40 mg Tablet PO (08:51)
[2023-02-11] MEDS: sodium chlor 0.9% + KCl 20 mEq 20 MEQ/1,000 ML BAG 100 MEQ IV (08:57)
[2023-02-11] MEDS: FUROsemide 20 mg Tablet PO (10:10)
--- NOTE | 2023-02-11 10:47 | PC.CHAP ---
Pastoral Care Encounter/Spiritual Assessment Type of Contact [] Declined refinery operator helper crude unit visit [] Patient/Family/Request visit [] Outpatient visit [] Follow-up visit [] Physician referral [] Code/Alert [x] Routine visit [] Staff referral [] Actively dying [] Patient sleeping [x] Family support [] [] Out of room [] Palliative care [] [] Receiving care in room [] Pre-surgical visit [] Trauma [] Long length of stay [] ICU visit [] Other: Relational/Emotional Strength [] Patient feels connected with others/family/visitors/staff [] Distress [] Loneliness/isolation [] Abandonment Spirituality of Patient [x] Person of Vera [] Attends Latter Day of their Vera [x] Believes in Prayer [] Reads Bible or Yarsanism materials [] There are Spiritual issues to be addressed Exotic Dancer Interventions [x] Prayer [x] Active listening []x Non-anxious presence [x] Spiritual/emotional support [] Crisis/trauma care x [] Spiritual counseling [] Bereavement support [] Provided bereavement packet [] Provided Bible/devotional materials [] Provided toy/stuffed animal, coloring book to patient or family member [] Provided Communion [] Anointing/[place] [] Salvation x]x Completed spiritual assessment [] Other: Impact on Illness or Injury [] Angry [] Fearful [] Anxious [] Often cries [] Exhaustion [] Unable to work [] Unable to attend yarsanism [] Unable to walk/stand [] Unable to read [] Unable to drive [] Unable to eat/drink [] Unable to sleep [] Unable to be with family [] Patient intubated [] Other: Summary Time spent with patient 10 min
[2023-02-11 13:54] LABS: Thyroid Stimulating Hormone 0.72 uIU/mL (0.27-4.20)
[2023-02-11 14:03] LABS: Procalcitonin 2.39 ng/mL (0-0.5); Vitamin B12 341 pg/mL (232-1245)
[2023-02-11 14:14] LABS: Iron 18 ug/dL (37-145); Percent Saturation 9.2 % (20-50); Total Iron Binding Capacity 194 mcg/dl; Unsaturated Iron Binding 176 ug/dL (112-347)
--- NOTE | 2023-02-11 16:18 | PM.PN ---
Subjective Subjective: Hospital course, labs appreciated. On examination patient lying comfortably in bed with family at bedside. She states she is feeling better. Still feels weak but better than when admitted. Denies any nausea, pain, headache, back pain. States she is able to get out of bed with help to go to bedside commode. Encouraged patient to go to bathroom and walk around in the [place] if possible. Patient is agreeable. Blood work appreciated for stable CBC with resolution of leukocytosis, BMP showing mild metabolic acidosis, hyperphosphatemia, iron panel associated with iron deficiency and anemia of chronic disease, CRP trending down. Vitals/I&O/Wt Last Vital Signs Temp 98 F 02/11/23 15:47 Pulse 75 02/11/23 15:47 Resp 18 02/11/23 15:47 BP 134/80 02/11/23 15:47 Pulse Ox 95 02/11/23 15:47 O2 Del Method Room Air 02/11/23 15:47 02/11/23 02/11/23 02/11/23 06:59 14:59 22:59 Intake Total 1150 / 4305.000 840 / 840 Balance 1150 / 4305.000 840 / 840 Weight last 48 hrs Weight 97.522 kg Physical Exam Narrative: General: No acute distress, AO x3 HEENT: PERRLA, pupils bilaterally equal and reactive Chest: Normal vesicular breath sounds, no added sounds, equal good air entry bilaterally CVS: S1-S2 regular, no murmurs, no tachycardia, no gallops, no rubs Abdomen: Soft, nontender, no organomegaly, bowel sounds present Neuro: No focal deficits, no facial deformity, AO x3, power 5/5 in all limbs Data 02/11/23 05:32 02/11/23 05:32 Micro: Microbiology 02/09/23 22:17 Urine Culture - Preliminary Urine,Clean Catch Gram Negative Rods A&P Assessment and plan (1) Weakness: Associated with her accidental fall this evening. Recently diagnosed with TIA on January 31 though presentation then was with slurred speech. Most likely in setting of pyelonephritis along with possible renal abscess. (2) Acute pyelonephritis: Failure of outpatient treatment with cephalexin and Macrobid. Appreciate CT abdomen pelvis results. Recent urine culture showing E. coli which is pansensitive. Repeat urine culture on this admission also showing gram-negative rods. (3) Lesion of both [place] kidneys: Ill-defined hypodense lesions noted in bilateral kidneys described as concerning for neoplasm or focal pyelonephritis. Cannot rule out renal abscess. Patient is immunocompromised as she is on steroids and Humira as an outpatient. Cannot rule out early abscess given high CRP. (4) High risk medication use: Chronically on Humira which she takes on Sundays, daily prednisone with periodic burst of steroids at higher doses both for rheumatoid arthritis (5) Rheumatoid arthritis with rheumatoid factor: Qualifiers: Rheumatoid arthritis location: multiple sites Qualified Code(s): M05.79 - Rheumatoid arthritis with rheumatoid factor of multiple sites without organ or systems involvement (6) Migraine: Persistent, being followed by Dr. Aly outpatient and was scheduled to see him 02/11 (7) Chronic anticoagulation: On chronic Eliquis due to history of recurrent PEs (8) CKD (chronic kidney disease): Baseline creatinine 1.1-1.4. Medical reconciliation done for nephrotoxic drugs. Continue to monitor daily. Qualifiers: Chronic kidney disease stage: stage 3 (moderate) Chronic kidney disease stage 3 subtype: stage 3a (GFR 45-59) Qualified Code(s): N18.31 - Chronic kidney disease, stage 3a (9) Chronic diarrhea: No recent change (10) SOB (shortness of breath): Chronic since he experienced COVID 19 in May 2022, has appointment with Dr Bhavesh davis Plan Physical therapy evaluation. VTE prophylaxis: Home dose of Eliquis.-DVT prophylaxis. GI Prophylaxis: PPI Disposition plan: Most likely plan to discharge home with caregiver with possible home health within next 24 hours on prolonged antibiotic with outpatient CT abdomen pelvis for further monitoring of renal hypodensities. Code Status: Full code Attestations Medical Necessity Statement*: Require further hospitalization for management of pyelonephritis with concerns for renal abscess in a patient who is immunocompromised. Diagnoses Weakness R53.1 Acute pyelonephritis N10 Lesion of both [place] kidneys N28.9 High risk medication use Z79.899 Rheumatoid arthritis with rheumatoid factor M05.79 Rheumatoid arthritis location: multiple sites Migraine G43.909 Chronic anticoagulation Z79.01 CKD (chronic kidney disease) N18.31 Chronic kidney disease stage: stage 3 (moderate) Chronic kidney disease stage 3 subtype: stage 3a (GFR 45-59) Chronic diarrhea K52.9 SOB (shortness of breath) R06.02
[2023-02-11] MEDS: pregabalin 150 mg Capsule PO (20:03)
[2023-02-11] MEDS: cefTRIAXone 1,000 MG in sodium chloride 0.9% (plus) 50 ML 100 MG IV (22:53)
[2023-02-12 04:00] VITALS: BP 126/81; PULSE 72; RESP 14; TEMP 36.8; O2SAT 96
[2023-02-12 05:06] LABS: Basophils % 0.5 %; Eosinophils # 0.1 10^3/uL (0.0-0.8); Eosinophils % 2.1 %; Hematocrit 30.5 % (36-47); Lymphocytes # 1.6 10^3/uL (0.8-4.8); Lymphocytes % 23.8 %; Mean Corpuscular HGB Conc 32.1 g/dL (30-55); Mean Corpuscular Hemoglobin 30.4 pg (27-33); Mean Corpuscular Volume 94.7 fl (85-98); Mean Platelet Volume 10.1 fL (7.4-10.4); Monocytes # 0.7 10^3/uL (0.2-0.9); Monocytes % 9.8 %; Neutrophils # 4.21 10^3/uL (1.8-7.7); Neutrophils % 63.2 %; Nucleated Red Blood Cells % 0 %; Platelet Count 177 10^3/cmm (157-399); Red Blood Count 3.22 10^6/uL (3.85-5.65); Red Cell Distribution Width 15.9 % (12.1-15.1); White Blood Count 6.65 10^3/uL (3.29-11.43)
[2023-02-12 05:09] VITALS: PULSE 72
[2023-02-12 05:21] LABS: Alanine Aminotransferase 129 U/L (0-33); Albumin Level 2.8 g/dL (3.5-5.2); Alkaline Phosphatase 127 U/L (35-105); Aspartate Amino Transferase 41 U/L (0-32); Blood Urea Nitrogen 8 mg/dL (8-23); Calcium 8.2 mg/dL (8.5-10.5); Carbon Dioxide 19 mmol/L (22-29); Chloride 113 mmol/L (98-107); Globulin 2.6 g/dL (1.3-4.6); Glucose 87 mg/dL (65-115); Osmolality Calculated 292 mOsm/kg (285-295); Sodium 142 mmol/L (136-145); Total Bilirubin 0.3 mg/dL (0.15-1.2); Total Protein 5.4 g/dL (6.6-8.7)
[2023-02-12 05:27] LABS: Chol HDL Ratio 2.62 mg/dL (0.0-4.40); Cholesterol 110 mg/dL (0-200); HDL Cholesterol 42 mg/dL (60-100); LDL Cholesterol Calculated 46 mg/dL (50-129); Triglycerides 109 mg/dL (0-150); VLDL Cholestrol Calculation 22 mg/dL (0-30)
[2023-02-12 05:42] LABS: Folate Level 4.4 ng/mL (4.8-37.3)
[2023-02-12 05:58] LABS: Estmated Average Glucose 114; Hemoglobin A1C 5.6 % (4.0-6.0)
[2023-02-12 07:25] VITALS: BP 143/85; PULSE 74; RESP 17; TEMP 36.3; O2SAT 97
[2023-02-12] MEDS: acetaminophen 325 mg Tablet 650 MG PO (07:49)
[2023-02-12] MEDS: pantoprazole DR 40 mg Tablet PO (07:50)
[2023-02-12] MEDS: metoprolol tartrate 25 mg Tablet PO (07:50)
[2023-02-12] MEDS: levothyroxine 100 mcg Tablet PO (07:50)
[2023-02-12] MEDS: potassium chloride ER 20 mEq Tablet PO (07:50)
[2023-02-12] MEDS: predniSONE 5 mg Tablet 2.5 MG PO (07:50)
[2023-02-12] MEDS: apixaban 5 mg Tablet PO (11:10)
[2023-02-12] MEDS: hydroxychloroquine 200 mg Tablet 100 MG PO (11:10)
--- NOTE | 2023-02-12 11:19 | P.DS_ITS ---
Discharge Providers Date of Admission: 02/10/23 00:25 Date of Discharge: February 12, 2023 Attending Provider at Admission: Michelle Ku MD Attending Provider at Discharge: Johnnie Shook MD Primary Care Provider: Mihaela Miguel MD Diagnoses at Discharge Discharge Diagnosis (1) Weakness: Status: Acute (2) Acute pyelonephritis: Status: Acute (3) Lesion of both [place] kidneys: Status: Acute (4) High risk medication use: Status: Chronic (5) Rheumatoid arthritis with rheumatoid factor: Status: Chronic Qualifiers: Rheumatoid arthritis location: multiple sites Qualified Code(s): M05.79 - Rheumatoid arthritis with rheumatoid factor of multiple sites without organ or systems involvement (6) Migraine: Status: Acute (7) Chronic anticoagulation: Status: Acute Permanent problem details: eliquis (8) CKD (chronic kidney disease): Status: Chronic Qualifiers: Chronic kidney disease stage: stage 3 (moderate) Chronic kidney disease stage 3 subtype: stage 3a (GFR 45-59) Qualified Code(s): N18.31 - Chronic kidney disease, stage 3a (9) Chronic diarrhea: Status: Chronic (10) SOB (shortness of breath): Status: Chronic Reason for Visit Reason for Visit: nausea, fall, headache Brief History: History as per HPI: Corina Vasques is a 72 year old female who presented to the emergency room with chief complaint of a fall along with nausea associated with dry heaves, general malaise and weakness.? In addition she has continued to have headaches.? Corina was recently seen in the emergency room on January 31.? At that time she presented with slurred speech ultimately felt to represent transient ischemic attack.? Additionally she was felt to have migraine headaches.? She had been seen by Dr. Aly in the ER and is due to follow-up tomorrow.? On January 31 Mrs. Vasques was also found to have urinary tract infection.? Keflex and subsequently Macrobid were prescribed urine culture came back from the 01/31 ER visit with pansensitive E. coli.? She has been taking the antibiotics as prescribed but has not really clinically had significant improvement overall as she has continued to generally not feel well.? She has not had any definitive fevers that she knows of but has had some episodes of feeling hot and sweaty.? She reports decreased urine output.? No particular dysuria or hematuria.? No flank pain.? She has noted some increase in loose stools. ? I will note that she does have a history of rheumatoid arthritis and is on Humira.? Last dose of Humira was this past Thursday.? In addition she is on 2.5 of prednisone daily and takes additional steroids when she has a flareup.? Most recent flare was a few weeks ago.? Her joints are currently doing okay.? This evening patient fell when she was going to the bathroom.? She simply misjudged where she was.? No injury associated with fall.? Nausea preceded the fall as did the dry heaves headache.? Work-up in the emergency room today revealed a white count of 15,000, a CRP that was significantly elevated at [address] of the abdomen and pelvis with ill- defined hypodense lesions in both kidneys measuring 2.9 cm on the right and 1.8 cm on the left raising concern for neoplasm or focal pyelonephritis.? She was given Rocephin in the emergency room and request was made for admission. Hospital Course Hospital Course Patient was admitted to the hospital for further evaluation and management of pyelonephritis with failure of outpatient medication in setting of immunocompromisation for rheumatoid arthritis medication and possibility of renal abscess versus renal mass. She was started on broad-spectrum antibiotics. On admission she was also found to have acute kidney injury for which medical reconciliation was done and she was started on gentle IV hydration. NATALIE resolved with above treatment. During hospitalization her blood cultures remain negative and urine culture came back positive for pansensitive E. coli like before. Patient gradually improved and is nearing her baseline for last 24 to 48 hours. She has been discharged in medically stable condition after physical therapy evaluation on oral ciprofloxacin twice daily for next 10 days. She is to have repeat CT abdomen pelvis with contrast for further monitoring and evaluation of bilateral renal hypodensities with concern for renal abscess. Patient is to follow-up with a primary care provider for results of CT abdomen pelvis. Physical Exam Narrative: General: No acute distress, AO x3 HEENT: PERRLA, pupils bilaterally equal and reactive Chest: Normal vesicular breath sounds, no added sounds, equal good air entry bilaterally CVS: S1-S2 regular, no murmurs, no tachycardia, no gallops, no rubs Abdomen: Soft, nontender, no organomegaly, bowel sounds present Neuro: No focal deficits, no facial deformity, AO x3, power 5/5 in all limbs Discharge Data Studies Completed and Pending Completed Studies During Hospitalization Category Date Time Status CT abdomen pelvis w con* [id number] Stat Cat Scan 02/09/23 22:26 Completed XR hip LT 2-3V wo/w pel* [id number] Stat Exams 02/09/23 21:57 Completed US renal BI* [id number] Routine Ultrasound 02/10/23 01:10 Completed Pending at discharge Category Date Time Status Chlamydia/Gonorrh RNA,TMA URO Routine Lab 02/12/23 12:31 Received Urine Culture Stat Lab 02/09/23 22:17 Results Radiology Impressions Hip/Pelvis X-Ray 02/09/23 21:57 IMPRESSION: No acute osseous abnormality of the left hip. Abdomen/Pelvis CT 02/09/23 22:26 IMPRESSION: Ill-defined hypodense lesions in bilateral kidneys measuring 2.9 cm on the right and 1.8 cm on the left raise concern for neoplasm (i.e. renal cell carcinoma) although non neoplastic etiology such as focal pyelonephritis may also be considered. Recommend renal ultrasound versus multiphasic CT/MR imaging for further characterization. Also recommend urinalysis to assess for urinary tract infection. COMMENTS: Consistent with the [employer]'s Incidental Findings Committee white paper (J Am Daniele Radiol 2018): Any incidental renal lesion less than 1 cm or classified as too small to characterize, or any incidental cystic renal lesion characterized as simple-appearing, is likely benign. No follow-up imaging is recommended for these lesions per consensus recommendations based on imaging criteria. Microbiology 02/09/23 22:17 Urine,Clean Catch Urine Culture - Final Escherichia coli Laboratory Results WBC 6.65 10^3/uL (3.29-11.43) 02/12/23 04:43 RBC 3.22 10^6/uL (3.85-5.65) L 02/12/23 04:43 Hgb 9.80 g/dL (11.27-16.99) L 02/12/23 04:43 Hct 30.5 % (36-47) L 02/12/23 04:43 MCV 94.7 fl (85-98) 02/12/23 04:43 MCH 30.4 pg (27-33) 02/12/23 04:43 MCHC 32.1 g/dL (30-55) 02/12/23 04:43 RDW 15.9 % (12.1-15.1) H 02/12/23 04:43 Plt Count 177 10^3/cmm (157-399) 02/12/23 04:43 MPV 10.1 fL (7.4-10.4) 02/12/23 04:43 Neut % (Auto) 63.2 % 02/12/23 04:43 Lymph % (Auto) 23.8 % 02/12/23 04:43 [place] % (Auto) 9.8 % 02/12/23 04:43 Eos % (Auto) 2.1 % 02/12/23 04:43 Baso % (Auto) 0.5 % 02/12/23 04:43 Neut # (Auto) 4.21 10^3/uL (1.8-7.7) 02/12/23 04:43 Lymph # (Auto) 1.6 10^3/uL (0.8-4.8) 02/12/23 04:43 [place] # (Auto) 0.7 10^3/uL (0.2-0.9) 02/12/23 04:43 Eos # (Auto) 0.1 10^3/uL (0.0-0.8) 02/12/23 04:43 Baso # (Auto) 0.0 10^3/uL (0.0-0.1) 02/12/23 04:43 Nucleated RBC % (auto) 0 % 02/12/23 04:43 Nucleated RBCs # 0.0 /100WBC 02/12/23 04:43 Sodium 142 mmol/L (136-145) 02/12/23 04:43 Potassium 4.0 mmol/L (3.5-5.1) 02/12/23 04:43 Chloride 113 mmol/L (98-107) H 02/12/23 04:43 Carbon Dioxide 19 mmol/L (22-29) L 02/12/23 04:43 Anion Gap 14.0 (5-19) 02/12/23 04:43 BUN 8 mg/dL (8-23) 02/12/23 04:43 Creatinine 0.7 mg/dL (0.5-0.9) 02/12/23 04:43 GFR Calculation Not Reportable 02/12/23 04:43 Glucose 87 mg/dL (65-115) 02/12/23 04:43 Estimat Average Glucose 114 02/12/23 04:43 Hemoglobin A1c 5.6 % (4.0-6.0) 02/12/23 04:43 Calculated Osmolality 292 mOsm/kg (285-295) 02/12/23 04:43 Lactate 0.7 mmol/L (0.5-2.2) 02/10/23 05:20 Calcium 8.2 mg/dL (8.5-10.5) L 02/12/23 04:43 Phosphorus 1.7 mg/dL (2.5-4.5) L 02/11/23 05:32 Magnesium 1.8 mg/dL (1.7-2.3) 02/11/23 05:32 Iron 18 ug/dL (37-145) L 02/11/23 05:32 TIBC 194 mcg/dl 02/11/23 05:32 % Saturation 9.2 % (20-50) L 02/11/23 05:32 Unsat Iron Binding 176 ug/dL (112-347) 02/11/23 05:32 Total Bilirubin 0.3 mg/dL (0.15-1.2) 02/12/23 04:43 AST 41 U/L (0-32) H 02/12/23 04:43 ALT 129 U/L (0-33) H 02/12/23 04:43 Alkaline Phosphatase 127 U/L (35-105) H 02/12/23 04:43 C-Reactive Protein 229.1 mg/L (0.0-4.9) H 02/11/23 05:32 Total Protein 5.4 g/dL (6.6-8.7) L 02/12/23 04:43 Albumin 2.8 g/dL (3.5-5.2) L 02/12/23 04:43 Globulin 2.6 g/dL (1.3-4.6) 02/12/23 04:43 Triglycerides 109 mg/dL (0-150) 02/12/23 04:43 Cholesterol 110 mg/dL (0-200) 02/12/23 04:43 LDL Cholesterol, Calc 46 mg/dL (50-129) L 02/12/23 04:43 Total VLDL Cholesterol 22 mg/dL (0-30) 02/12/23 04:43 HDL Cholesterol 42 mg/dL (60-100) L 02/12/23 04:43 Cholesterol/HDL Ratio 2.62 mg/dL (0.0-4.40) 02/12/23 04:43 Vitamin B12 341 pg/mL (232-1245) 02/11/23 05:32 Folate 4.4 ng/mL (4.8-37.3) L 02/12/23 04:43 Procalcitonin 2.39 ng/mL (0-0.5) H 02/11/23 05:32 TSH 0.72 uIU/mL (0.27-4.20) 02/11/23 05:32 Urine Color Dark yellow (Yellow) 02/09/23 22:17 Urine Appearance Cloudy (CLEAR) A 02/09/23 22:17 Urine pH 5 (5-7) 02/09/23 22:17 Ur Specific [place] 1.020 (1.005-1.030) 02/09/23 22:17 Urine Protein 1+ (Negative) H 02/09/23 22:17 Urine Glucose (UA) Norm (Normal) 02/09/23 22:17 Urine Ketones 1+ (Negative) H 02/09/23 22:17 Urine Blood 3+ (Negative) H 02/09/23 22:17 Urine Nitrate Positive (Negative) H 02/09/23 22:17 Urine Bilirubin Neg (Negative) 02/09/23 22:17 Urine Urobilinogen Neg mg/dL (Negative) 02/09/23 22:17 Ur Leukocyte Esterase Negative (Negative) 02/09/23 22:17 Urine RBC 25-40 /hpf (0-2) H 02/09/23 22:17 Urine WBC 0-4 /hpf (0-5) H 02/09/23 22:17 Ur Squamous Epith Cells None /hpf (0-5) 02/09/23 22:17 Amorphous Sediment Not Reportable 02/09/23 22:17 Urine Bacteria 3+ /hpf (NONE) H 02/09/23 22:17 Vitals Last Vital Signs Temp 97.4 F L 02/12/23 07:25 Pulse 74 02/12/23 07:25 Resp 17 02/12/23 07:25 BP 143/85 02/12/23 07:25 Pulse Ox 97 02/12/23 07:25 O2 Del Method Room Air 02/12/23 07:25 Discharge Plan Discharge Patient Disposition: Home Condition: Stable Prescriptions: New ciprofloxacin HCl 500 mg tablet 500 mg PO Q12H Qty: 20 0RF Continued omega 4-qfa-eti-fish oil [Fish Oil] 300-1,000 mg capsule 1 cap PO DAILY potassium chloride 20 mEq tablet extended release 20 meq PO DAILY lisinopril 2.5 mg tablet 2.5 mg PO DAILY pregabalin [Lyrica] 200 mg capsule 200 mg PO BEDTIME red yeast rice 600 mg capsule 600 mg PO BID Rx Instructions: give with meal/snack metoprolol tartrate 100 mg tablet 100 mg PO BID furosemide 20 mg tablet 20 mg PO DAILY cholecalciferol (vitamin D3) 50 mcg (2,000 unit) capsule 50 mcg PO DAILY Unisom (doxylamine) 25 mg tablet 25 mg PO BEDTIME PRN (Reason: Sleep) Eliquis 5 mg tablet 5 mg PO BID Qty: 60 3RF hydroxychloroquine 200 mg tablet See Rx Instructions PO DAILY Qty: 135 1RF Rx Instructions: alternate taking 1 tablet on 1 day and then 2 tablets the following day. diclofenac sodium 1 % gel 2 g topical QID Qty: 100 2RF Rx Instructions: apply to affected area as needed promethazine 12.5 mg tablet 12.5 mg PO Q6H PRN (Reason: Nausea) levothyroxine [Synthroid] 100 mcg tablet 100 mcg PO DAILY acetaminophen 500 mg Capsule 1,000 mg PO Q6H PRN (Reason: Pain) vitamin E 400 unit Capsule 400 unit PO BID pantoprazole 40 mg tablet,delayed release (DR/EC) 40 mg PO BID Qty: 60 0RF prednisone 2.5 mg Tablet 2.5 mg PO DAILY prednisone 10 mg tablet See Rx Instructions .ROUTE .COMPLEX PRN (Reason: Shortness Of Breath) Rx Instructions: 10 mg orally DAILY FOR 3 TO 7 DAYS NEEDED ondansetron 8 mg tablet,disintegrating See Rx Instructions .ROUTE .COMPLEX PRN (Reason: Nausea) Rx Instructions: 8 MG DISSOLVED ON TONGUE 3 TIMES DAILY NEEDED FOR NAUSEA. Held Humira Pen 40 mg/0.8 mL pen injector kit 40 mg SUBCUT Q14D Qty: 2 3RF Hold Instructions: Resume on 03/12/23. Rx Instructions: ON MAK Discharge Orders: Discharge Order (Routine); Ordered 02/12/23 Ordered By: Johnnie Shook Other Ambulatory Orders: CT abdomen pelvis w con* [id number] (Routine) Timeframe: 2 Weeks Facility: [facility] - Location: [facility] Ordered By: Johnnie Shook Referrals: Mihaela Miguel MD [Primary Care Provider] - 02/16/23 1:00 pm Discharge Diet: Cardiac Discharge Activity: Resume usual activity and Increase activity as tolerated Patient Instructions: Ciprofloxacin (By mouth), Opioid Safety Activity Restrictions/Additional Instructions: Ciprofloxacin is the antibiotic which is supposed to take twice daily for the next [address] abdomen pelvis with contrast done within the next 2 weeks for further evaluation of bilateral renal hypodensities with concern for renal abscess. She should follow-up with your primary care provider regarding the results of the CT abdomen. Do not take Humira for now for next 1 month. Discharge Attestations Time Spent in Discharge Care*: greater than 30 min Specific Discharge Activities: educating patient, educating and/or supporting family/caregiver, discussing with pcp/other providers, discussing with employment evaluator/case manager/social workers/dc planners, documenting/other paperwork and evaluating patient/reviewing data Status at Discharge: Cognitive status at discharge: cognitively intact , Behavioral status at discharge: cooperative , Functional status at discharge: uses cane/walker , Overall status at discharge: patient is progressing back to baseline Quality Metrics Clinical Quality Measures [ No reported AMI, CVA or VTE this stay] Coding Level of Care Code 85093 Total time (in minutes) for Discharge: 60 Diagnoses Weakness R53.1 Acute pyelonephritis N10 Lesion of both [place] kidneys N28.9 High risk medication use Z79.899 Rheumatoid arthritis with rheumatoid factor M05.79 Rheumatoid arthritis location: multiple sites Migraine G43.909 Chronic anticoagulation Z79.01 CKD (chronic kidney disease) N18.31 Chronic kidney disease stage: stage 3 (moderate) Chronic kidney disease stage 3 subtype: stage 3a (GFR 45-59) Chronic diarrhea K52.9 SOB (shortness of breath) R06.02
[2023-02-12 11:54] VITALS: BP 147/87; PULSE 68; RESP 20; TEMP 36.4; O2SAT 96
--- NOTE | 2023-02-12 14:52 | PC.NURSE ---
PER DR SNOWDEN PCP APPOINTMENT NEEDS TO BE 2 WEEKS OUT SO THAT PATIENT CAN HAVE CT DONE BEFORE APPOINTMENT.
[2023-02-12 15:01] VITALS: BP 147/87; PULSE 68; RESP 20; TEMP 36.4; O2SAT 96
[2023-02-13 16:34] LABS: Chlamydia Trachomatis RNA TMA NOT DETECTED (NOT DETECTED); Neisseria Gonorrhoeae RNA, TMA NOT DETECTED (NOT DETECTED)
== END 2023-02-12 15:00 | disposition home or self-care (01) | DRG 690 ==
LOC: ER 02-10 00:11 → MEDSURG 02-10 00:25
PROVIDERS: Admitting Provider Hospitalist; Emergency Provider Emergency Medicine; PCP Family Medicine; Visit Provider Student in an Organized Health Care Education/Training Program
DX: N10 Acute pyelonephritis (principal); D84.821 Immunodeficiency due to drugs; E87.20 Acidosis, unspecified; W19.XXXA Unspecified fall, initial encounter; N39.0 Urinary tract infection, site not specified; B96.20 Unspecified Escherichia coli [E. coli] as the cause of diseases classified elsewhere; Z86.73 Personal history of transient ischemic attack (TIA), and cerebral infarction without residual deficits; M05.89 Other rheumatoid arthritis with rheumatoid factor of multiple sites; Z79.60 Long term (current) use of unspecified immunomodulators and immunosuppressants; Z79.52 Long term (current) use of systemic steroids; N28.9 Disorder of kidney and ureter, unspecified; N17.9 Acute kidney failure, unspecified; Z79.01 Long term (current) use of anticoagulants; I12.9 Hypertensive chronic kidney disease with stage 1 through stage 4 chronic kidney disease, or unspecified chronic kidney disease; N18.31 Chronic kidney disease, stage 3a; Z86.16 Personal history of COVID-19; Z85.3 Personal history of malignant neoplasm of breast; Z92.3 Personal history of irradiation; E03.9 Hypothyroidism, unspecified; I34.0 Nonrheumatic mitral (valve) insufficiency; D50.9 Iron deficiency anemia, unspecified; D63.1 Anemia in chronic kidney disease; K52.9 Noninfective gastroenteritis and colitis, unspecified; G43.509 Persistent migraine aura without cerebral infarction, not intractable, without status migrainosus
CPT/HCPCS: 36415; 51701; 73502; 74177; 76770; 80048; 80053; 80061; 81001; 82607; 82746; 83036; 83540; 83550; 83605; 83735; 84100; 84145; 84443; 85025; 86140; 87077; 87086; 87186; 87491; 87591; 90471; 90732; 96365; 96375; 97116; 97161; 99285; J0696; J2270; J2405; J3480; J7030; J7512; Q0169; Q9967

== ENCOUNTER → 2023-02-19 08:37 | Outpatient (BNVA) | payer MEDICARE, OTHER, SELFPAY | PROVIDERS: PCP Family Medicine; Referring Provider Family Medicine; Visit Provider Psychiatry & Neurology Neurology | DX: G45.9 Transient cerebral ischemic attack, unspecified (principal); R29.90 Unspecified symptoms and signs involving the nervous system; G43.019 Migraine without aura, intractable, without status migrainosus; I12.9 Hypertensive chronic kidney disease with stage 1 through stage 4 chronic kidney disease, or unspecified chronic kidney disease; N18.30 Chronic kidney disease, stage 3 unspecified; Z79.01 Long term (current) use of anticoagulants | CPT/HCPCS: 99212 ==

== ENCOUNTER 2023-03-02 15:35 | Outpatient (CLI) | payer MEDICARE, OTHER, SELFPAY ==
--- NOTE | 2023-03-02 16:00 | CT_ITS ---
WS: [id number] CT ABDOMEN AND PELVIS WITH CONTRAST HISTORY: Renal mass vs abscess TECHNIQUE: Imaging performed of the abdomen and pelvis with IV contrast. Single phase imaging of the abdomen. Coronal and sagittal reformats are submitted. All CT scans at [facility] use at [address] one of these dose optimization techniques: automated exposure control; mA and/or kV adjustment per patient size (includes targeted exams where dose is matched to clinical indication); or iterative re construction. IV CONTRAST: Omnipaque 350; 100 mL IV. Oral contrast: Yes. DLP: 874.32 mGy.cm COMPARISON: Prior renal ultrasound 02/10/[address] 02/09/2023 Lower thorax: Lung bases are clear. Heart is normal size. Moderate hiatal hernia. Surgical clips in a t the GE junction from prior hernia repair. Liver/biliary system: Normal size with no intrahepatic dilatation. Gallbladder: Status post cholecystectomy. Pancreas: Normal size pancreas and pancreatic duct. No adjacent inflammation. Spleen: Normal size with granulomata. Adrenal glands: Normal. Right kidney: Significant improvement appearance of the RIGHT kidney since the prior CT. The area of decreased attenuation and cortical thickening in the mid RIGHT kidney significantly improved. There i s still residual area of decreased enhancement measuring 15 x 14 mm which may be the residual of a fo mikal area of nephritis. There is mild renal atrophy. No obstruction. Nonobstructing calcification lowe r pole. Left kidney: Very mild atrophy. No obstruction. No residual area of decreased enhancement. Aorta: Mild atherosclerosis with no aneurysm. Lymphadenopathy: None. Free fluid: None. GI tract: Negative stomach. No small bowel obstruction. Small amount of increased fluid in the RIGHT colon but no obstructive pattern. Prior appendectomy. No colitis. Abdominal wall: Tiny fat-containing umbilical hernia. Pelvis: Prior hysterectomy. No free fluid or adenopathy. Bones: Mild degenerative rotary scoliosis of the lumbar spine with convexity to the LEFT. Degenerativ e disc space narrowing most significant at L4-5 and L5-S1. Prior LEFT hip arthroplasty. IMPRESSION: 1. Significant improvement in the area of decreased enhancement in the RIGHT renal cortex. Focal cor tical area of decreased enhancement now measures 15 x 14 mm as compared to 30 x 24 mm on the prior s tudy. No residual area of abnormal enhancement in the LEFT kidney. Favor these were areas of focal py elonephritis. Consider additional 3-month CT abdomen follow-up to ensure continued resolution. 2. Prior cholecystectomy, appendectomy and hysterectomy.
[2023-03-02] MEDS: iohexol 350 mg/mL 500 mL Btl (per mL) IV (16:10)
== END 2023-03-02 15:36 | disposition home or self-care (01) ==
PROVIDERS: PCP Family Medicine; Visit Provider Student in an Organized Health Care Education/Training Program
DX: N28.89 Other specified disorders of kidney and ureter (principal)
CPT/HCPCS: 74177; Q9967

== ENCOUNTER → 2023-03-12 10:40 | Outpatient (BNVA) | payer MEDICARE, OTHER, SELFPAY | PROVIDERS: PCP Family Medicine; Visit Provider Internal Medicine Pulmonary Disease | DX: R06.02 Shortness of breath (principal); Z86.16 Personal history of COVID-19 | CPT/HCPCS: 99204 ==

== ENCOUNTER → 2023-03-18 13:54 | Outpatient (BNVA) | payer MEDICARE, OTHER, SELFPAY | PROVIDERS: PCP Family Medicine; Visit Provider Internal Medicine Cardiovascular Disease | DX: I13.0 Hypertensive heart and chronic kidney disease with heart failure and stage 1 through stage 4 chronic kidney disease, or unspecified chronic kidney disease (principal); I50.30 Unspecified diastolic (congestive) heart failure; N18.31 Chronic kidney disease, stage 3a; I34.0 Nonrheumatic mitral (valve) insufficiency; R60.0 Localized edema; I26.99 Other pulmonary embolism without acute cor pulmonale; M05.79 Rheumatoid arthritis with rheumatoid factor of multiple sites without organ or systems involvement; G43.909 Migraine, unspecified, not intractable, without status migrainosus; Z86.73 Personal history of transient ischemic attack (TIA), and cerebral infarction without residual deficits | CPT/HCPCS: 36415; 80048; 83880; 99214 ==

== ENCOUNTER 2023-03-20 08:53 | Outpatient (CLI) | payer MEDICARE, OTHER, SELFPAY ==
--- NOTE | 2023-03-20 | MM_ITS ---
WS: [id number] Bilateral diagnostic 3D tomosynthesis digital mammogram, 03/20/2023 Clinical Data: HX OF BR CA Comparison: 02/10/2022, 02/15/2021, 02/09/2020, 09/30/2018, 11/05/2017, 10/21/2017, 09/22/2017, 04/15/2017, , 12/29/2014, 11/17/2008. Findings: The breast parenchymal pattern shows heterogeneous density. There are postoperative changes in the up per outer quadrant of the right breast with numerous calcifications and breast thickening. No evidenc e of recurrent carcinoma is seen. There are no spiculated masses nor clustered calcifications. There are mole markers on both breasts. There are benign calcifications in both breasts. The left breast is unremarkable. Impression: 1. Negative bilateral mammogram is unchanged. 2. Recommend annual mammograms. MM/[place] [id number] BIRADS: 2-Benign FOLLOW UP: 1 Year Follow-up The CAD fish checker was used.
== END 2023-03-20 08:54 | disposition home or self-care (01) ==
PROVIDERS: PCP Family Medicine; Visit Provider Family Medicine
DX: Z85.3 Personal history of malignant neoplasm of breast (principal)
CPT/HCPCS: 77062; G0279

== ENCOUNTER 2023-03-26 11:51 | Outpatient (CLI) | payer MEDICARE, OTHER, SELFPAY ==
--- NOTE | 2023-03-26 12:15 | USCV_ITS ---
Layo Corina Age: 72 Gender: F : 1950 Exam Date: 03/26/2023 12:13 Ordering Phys: Reggie Reeves MD ([email or web address]) Technologist: Nancy Rodas Exam Location: [facility] [place] Indication: mr, leg edema, sob BP: 112 / 68 HR: 63 Rhythm: Sinus Technical Quality: Adequate MEASUREMENTS (Male / Female) Normal Values 2D ECHO LV Diastolic Diameter PLAX 3.5 cm 4.2 - 5.9 / 3.9 - 5.3 cm LV Systolic Diameter PLAX 2.7 cm IVS Diastolic Thickness 1.2 cm 0.6 - 1.0 / 0.6 - 0.9 cm IVS Systolic Thickness 1.2 cm LVPW Diastolic Thickness 1.1 cm 0.6 - 1.0 / 0.6 - 0.9 cm LVPW Systolic Thickness 1.5 cm LVOT Diameter 2.0 cm LV Ejection Fraction 2D Teich 48.4 % LV Ejection Fraction MOD 2C 52.2 % LV Ejection Fraction 2C AL 51.6 % LA Diameter 3.9 cm LA Width 2.6 cm LA Height 4.4 cm RA Width 2.4 cm RA Height 4.3 cm Aorta at Sinotubular Diameter 2.5 cm IVC Diameter 1.6 cm M-MODE Aortic Annulus Diameter 2.8 cm LA Ao Ratio MM 1.5 MV E Point Septal Separation 0.5 cm DOPPLER AV Peak Velocity 149.0 cm/s LVOT Peak Velocity 113.0 cm/s AV Area Cont Eq vti 2.4 cm squared AV Area Cont Eq pk 2.4 cm squared MV Peak Velocity 141.0 cm/s MV Area PHT 3.3 cm squared Mitral E to A Ratio 1.5 MV E' Velocity 57.0 cm/s Mitral E to MV E' Ratio 16.8 Mitral E to LV E' Lateral Ratio 15.1 Mitral E to LV E' Septal Ratio 19.1 TR Peak Velocity 272.3 cm/s TR Peak Gradient 29.6 mmHg Right Atrial Pressure 5.0 mmHg Pulmonary Artery Systolic Pressu 34.6 mmHg PV Peak Velocity 79.0 cm/s RV Acceleration Time 0.1 s RV Ejection Time 0.4 s RV AcT/ET 0.4 FINDINGS Left Ventricle Normal left ventricular size and systolic function, EF 56 %. No regional wall motion abnormalities. Right Ventricle The right ventricle is normal in size and function. Right Atrium The right atrium is normal in size. Left Atrium The left atrium is normal in size. Mitral Valve Moderate mitral valve regurgitation. Aortic Valve Trace to mild aortic valve regurgitation. Tricuspid Valve Uyiq-bm-jbfkldot tricuspid valve regurgitation. Estimated pulmonary artery peak systolic pressure 35 mm of Hg Pulmonic Valve No gross abnormalities noted Pericardium Normal pericardium without effusion. Aorta Normal ascending aorta dimension. IVC Normal inferior vena cava. CONCLUSIONS Normal left ventricular size and systolic function, EF 56 %. No regional wall motion abnormalities. Moderate mitral valve regurgitation. Trace to mild aortic valve regurgitation. [id number]-[id number] tricuspid valve regurgitation. Estimated pulmonary artery peak systolic pressure 35 mm of Hg. There is no pericardial effusion. Compared to the study from 04/25/2019, there may not be a significant change. Dr Reggie Reeves MD FACC (Electronically Signed) Final Date: 28 March 2023 13:47 S
== END 2023-03-26 11:52 | disposition home or self-care (01) ==
PROVIDERS: PCP Family Medicine; Visit Provider Internal Medicine Cardiovascular Disease
DX: R06.02 Shortness of breath (principal); R60.0 Localized edema; I08.3 Combined rheumatic disorders of mitral, aortic and tricuspid valves
CPT/HCPCS: 93306

== ENCOUNTER 2023-04-08 12:21 | Outpatient (CLI) | payer MEDICARE, OTHER, SELFPAY ==
[2023-04-08 14:35] LABS: Anion Gap 14.2 (5-19); Blood Urea Nitrogen 17 mg/dL (8-23); Calcium 9.4 mg/dL (8.5-10.5); Carbon Dioxide 25 mmol/L (22-29); Chloride 105 mmol/L (98-107); Glucose 81 mg/dL (65-115); NT Pro B Type Natriuretic Pept 690 pg/mL (0-125); Osmolality Calculated 291 mOsm/kg (285-295); Potassium 4.2 mmol/L (3.5-5.1); Sodium 140 mmol/L (136-145)
== END 2023-04-08 12:22 | disposition home or self-care (01) ==
PROVIDERS: PCP Family Medicine; Visit Provider Internal Medicine Cardiovascular Disease
DX: I50.30 Unspecified diastolic (congestive) heart failure (principal); I34.0 Nonrheumatic mitral (valve) insufficiency; R06.02 Shortness of breath; R94.2 Abnormal results of pulmonary function studies
CPT/HCPCS: 36415; 80048; 83880; 94010; 94618; 94726; 94729

== ENCOUNTER → 2023-04-14 14:12 | Outpatient (BNVA) | payer MEDICARE, OTHER, SELFPAY | PROVIDERS: PCP Family Medicine; Visit Provider Internal Medicine Rheumatology | DX: Z79.899 Other long term (current) drug therapy (principal); M05.9 Rheumatoid arthritis with rheumatoid factor, unspecified; M25.559 Pain in unspecified hip; M05.79 Rheumatoid arthritis with rheumatoid factor of multiple sites without organ or systems involvement; Z71.89 Other specified counseling; N18.31 Chronic kidney disease, stage 3a; R06.02 Shortness of breath; U07.1 COVID-19 | CPT/HCPCS: 99214 ==

== ENCOUNTER 2023-04-15 08:44 | Outpatient (CLI) | payer MEDICARE, OTHER, SELFPAY ==
--- NOTE | 2023-04-15 08:54 | XR_ITS ---
WS: [id number] Exam: XR hip RT 2-3V wo/w pel* [id number] Date/Time of Exam: 04/15/2023 8:59 AM Reason For Exam: M25.559 - Pain in unspecified hip No acute fracture or dislocation. Minimal degenerative change of the joint compartment. Normal soft t issues. Surgical anchoring screw in the RIGHT pubis. IMPRESSION: 1. Mild DJD. No fracture or other significant finding.
== END 2023-04-15 08:45 | disposition home or self-care (01) ==
LOC: RAD 08:46
PROVIDERS: PCP Family Medicine; Visit Provider Internal Medicine Rheumatology
DX: M16.11 Unilateral primary osteoarthritis, right hip (principal); M25.551 Pain in right hip
CPT/HCPCS: 73502

== ENCOUNTER 2023-05-18 09:35 | Outpatient (CLI) | payer MEDICARE, OTHER, SELFPAY ==
[2023-05-18 10:47] LABS: Anion Gap 13.9 (5-19); Blood Urea Nitrogen 16 mg/dL (8-23); Calcium 9.4 mg/dL (8.5-10.5); Carbon Dioxide 25 mmol/L (22-29); Chloride 106 mmol/L (98-107); Glucose 101 mg/dL (65-115); NT Pro B Type Natriuretic Pept 532 pg/mL (0-125); Osmolality Calculated 293 mOsm/kg (285-295); Potassium 3.9 mmol/L (3.5-5.1); Sodium 141 mmol/L (136-145)
== END 2023-05-18 09:36 | disposition home or self-care (01) ==
PROVIDERS: PCP Family Medicine; Visit Provider Internal Medicine Cardiovascular Disease
DX: I50.30 Unspecified diastolic (congestive) heart failure (principal); N18.31 Chronic kidney disease, stage 3a
CPT/HCPCS: 36415; 80048; 83880

== ENCOUNTER → 2023-06-11 13:24 | Outpatient (BNVA) | payer MEDICARE, OTHER, SELFPAY | PROVIDERS: PCP Family Medicine; Visit Provider Internal Medicine Pulmonary Disease | DX: J84.9 Interstitial pulmonary disease, unspecified (principal); R06.02 Shortness of breath | CPT/HCPCS: 99214 ==

== ENCOUNTER 2023-06-19 07:36 | Outpatient (CLI) | payer MEDICARE, OTHER, SELFPAY ==
--- NOTE | 2023-06-19 08:00 | CTR_ITS ---
PROCEDURE INFORMATION: Exam: CT Chest Without Contrast; Diagnostic Exam date and time: 06/19/2023 7:46 AM Age: 72 years old Clinical indication: Shortness of breath; Prior surgery; Surgery date: 6+ months; Surgery type: R breast lumpectomy, R parotid; Patient HX: SOB x several months, R/O interstitial lung disease, HX of covid in 05/2022, ; additional info: Rule out interstitial lung disease TECHNIQUE: Imaging protocol: Diagnostic computed tomography of the chest without contrast. Radiation optimization: All CT scans at this facility use at least one of these dose optimization techniques: automated exposure control; mA and/or kV adjustment per patient size (includes targeted exams where dose is matched to clinical indication); or iterative reconstruction. REPORTING DATA: Count of CT and Cardiac NM exams in prior 12 months: This patient has received 5 known CTs and 0 known cardiac nuclear medicine studies in the 12 months prior to the current study. COMPARISON: CT angio chest PE protcl [id number] 04/10/2019 10:21 AM RADIATION DOSE METRICS: Total DLP (mGy-cm): 1152.52 FINDINGS: Lungs: Calcified right lower lobe granuloma. No infiltrate or edema. Pleural spaces: Unremarkable. No pneumothorax. No pleural effusion. Heart: Unremarkable. No cardiomegaly. No pericardial effusion. Coronary arteries: Coronary artery calcifications. Lymph nodes: Calcified right-sided hilar and mediastinal nodes. Vasculature: Unremarkable. No aortic aneurysm. Diaphragm: Previous surgical repair of hiatal hernia. Gallbladder and bile ducts: Previous cholecystectomy. Spleen: Multiple calcified splenic granulomata. Bones/joints: Unremarkable. No acute fracture. Soft tissues: Unremarkable. CT/CT chest wo con [id number] IMPRESSION: No acute findings. Calcification in hilar and mediastinal nodes and right lung base, multiple splenic granulomata, possible previous granulomatous infection.
== END 2023-06-19 07:37 | disposition home or self-care (01) ==
LOC: RAD 07:37
PROVIDERS: PCP Family Medicine; Visit Provider Internal Medicine Pulmonary Disease
DX: J84.10 Pulmonary fibrosis, unspecified (principal); R06.02 Shortness of breath; Z86.16 Personal history of COVID-19
CPT/HCPCS: 71250

== ENCOUNTER → 2023-08-04 13:13 | Outpatient (BNVA) | payer MEDICARE, OTHER, SELFPAY | PROVIDERS: PCP Family Medicine; Visit Provider Internal Medicine Rheumatology | DX: Z79.899 Other long term (current) drug therapy (principal); M05.79 Rheumatoid arthritis with rheumatoid factor of multiple sites without organ or systems involvement; M25.559 Pain in unspecified hip; Z71.89 Other specified counseling; N18.31 Chronic kidney disease, stage 3a; R06.02 Shortness of breath; M25.551 Pain in right hip | CPT/HCPCS: 20610; 99214; J1030 ==

== ENCOUNTER → 2023-09-10 14:48 | Outpatient (BNVA) | payer MEDICARE, OTHER, SELFPAY | PROVIDERS: PCP Family Medicine; Visit Provider Internal Medicine Pulmonary Disease | DX: N39.0 Urinary tract infection, site not specified (principal); R06.02 Shortness of breath; Z86.711 Personal history of pulmonary embolism | CPT/HCPCS: 99214 ==

== ENCOUNTER → 2023-10-05 16:51 | Outpatient (BNVA) | payer MEDICARE, OTHER, SELFPAY | PROVIDERS: PCP Family Medicine; Visit Provider Internal Medicine Cardiovascular Disease | DX: R06.02 Shortness of breath (principal); Z79.899 Other long term (current) drug therapy; I10 Essential (primary) hypertension; I34.0 Nonrheumatic mitral (valve) insufficiency; I26.99 Other pulmonary embolism without acute cor pulmonale; I50.32 Chronic diastolic (congestive) heart failure; G45.9 Transient cerebral ischemic attack, unspecified | CPT/HCPCS: 36415; 80048; 83880; 99214 ==

== ENCOUNTER → 2023-10-13 14:36 | Outpatient (BNVA) | payer MEDICARE, OTHER, SELFPAY | PROVIDERS: PCP Family Medicine; Visit Provider Internal Medicine Rheumatology | DX: M25.551 Pain in right hip (principal) | CPT/HCPCS: 20610; J1010 ==

== ENCOUNTER 2023-10-16 09:56 | Outpatient (CLI) | payer MEDICARE, OTHER, SELFPAY ==
[2023-10-16 10:43] LABS: Anion Gap 13.9 (5-19); Blood Urea Nitrogen 19 mg/dL (8-23); Calcium 9.1 mg/dL (8.5-10.5); Carbon Dioxide 28 mmol/L (22-29); Chloride 105 mmol/L (98-107); Glucose 124 mg/dL (65-115); NT Pro B Type Natriuretic Pept 427 pg/mL (0-125); Osmolality Calculated 300 mOsm/kg (285-295); Potassium 3.9 mmol/L (3.5-5.1); Sodium 143 mmol/L (136-145)
== END 2023-10-16 09:57 | disposition home or self-care (01) ==
LOC: LAB 09:58
PROVIDERS: PCP Family Medicine; Visit Provider Internal Medicine Cardiovascular Disease
DX: I50.32 Chronic diastolic (congestive) heart failure (principal); R06.02 Shortness of breath
CPT/HCPCS: 36415; 80048; 83880

== ENCOUNTER 2023-11-24 11:57 | Outpatient (RCR) | payer MEDICARE, OTHER, SELFPAY | END 2023-12-20 23:59 | disposition home or self-care (01) | LOC: SPT 11:57 | PROVIDERS: PCP Family Medicine; Visit Provider Internal Medicine Rheumatology | DX: M70.61 Trochanteric bursitis, right hip (principal) | CPT/HCPCS: 97110; 97140; 97161; G0283 ==

== ENCOUNTER 2023-12-10 08:00 | Outpatient (CLI) | payer MEDICARE, OTHER, SELFPAY ==
--- NOTE | 2023-12-10 07:51 | CTR_ITS ---
PROCEDURE INFORMATION: Exam: CT Neck With Contrast Exam date and time: 12/10/2023 8:55 AM Age: 73 years old Clinical indication: Dysphagia / difficulty swallowing; Prior surgery; Surgery date: 6+ months; Patient HX: Left side of neck/jaw swollen x 3 months, dysphagia/dysphonia, hoarseness, follow up parotid cancer TECHNIQUE: Imaging protocol: Computed tomography of the neck with contrast. Radiation optimization: All CT scans at this facility use at least one of these dose optimization techniques: automated exposure control; mA and/or kV adjustment per patient size (includes targeted exams where dose is matched to clinical indication); or iterative reconstruction. Contrast material: OMNI 350; Contrast volume: 100 ml; Contrast route: INTRAVENOUS (IV); COMPARISON: CT angio headneck* [id number] 01/31/2023 11:30 AM RADIATION DOSE METRICS: Total DLP (mGy-cm): 235.01 FINDINGS: Salivary glands: Prior surgery with resection of most of the right parotid. Predominantly circumferentially calcified nodule in the right neck is probably an area of fat necrosis. Pharynx: Unremarkable. No significant tonsillar enlargement. Prevertebral and retropharyngeal spaces: Unremarkable. Larynx: Unremarkable. Epiglottis is normal. Thyroid: Normal. No enlarged or calcified nodules. Trachea: Visualized trachea is unremarkable. Lungs: Unremarkable as visualized. Lymph nodes: Unremarkable. No lymphadenopathy. Bones/joints: Unremarkable. No acute fracture. Soft tissues: No left neck mass. CT/CT neck w con* [id number] IMPRESSION: No evidence of neoplastic disease. No change since 01/31/2023.
[2023-12-10 08:49] LABS: Blood Urea Nitrogen 12 mg/dL (8-23)
[2023-12-10] MEDS: iohexol 350 mg/mL 500 mL Btl (per mL) IV (09:05)
== END 2023-12-10 08:01 | disposition home or self-care (01) ==
PROVIDERS: PCP Family Medicine; Visit Provider Specialist
DX: R13.10 Dysphagia, unspecified (principal); R49.0 Dysphonia
CPT/HCPCS: 70491; 82565; 84520; Q9967

== ENCOUNTER → 2023-12-15 14:38 | Outpatient (BNVA) | payer MEDICARE, OTHER, SELFPAY | PROVIDERS: PCP Family Medicine; Visit Provider Internal Medicine Rheumatology | DX: M05.79 Rheumatoid arthritis with rheumatoid factor of multiple sites without organ or systems involvement (principal); Z79.899 Other long term (current) drug therapy; Z71.89 Other specified counseling; N18.31 Chronic kidney disease, stage 3a; R06.02 Shortness of breath; M19.90 Unspecified osteoarthritis, unspecified site; Z96.642 Presence of left artificial hip joint; M85.80 Other specified disorders of bone density and structure, unspecified site; Z85.3 Personal history of malignant neoplasm of breast; I26.99 Other pulmonary embolism without acute cor pulmonale; Z11.1 Encounter for screening for respiratory tuberculosis; Z11.59 Encounter for screening for other viral diseases | CPT/HCPCS: 99214 ==

== ENCOUNTER 2023-12-21 06:00 | Outpatient (RCR) | payer MEDICARE, OTHER, SELFPAY | END 2023-12-25 23:59 | disposition home or self-care (01) | LOC: SPT 06:00 | PROVIDERS: PCP Family Medicine; Visit Provider Internal Medicine Rheumatology | DX: M70.61 Trochanteric bursitis, right hip (principal) | CPT/HCPCS: 97110; G0283 ==

== ENCOUNTER 2023-12-29 15:32 | Outpatient (CLI) | payer MEDICARE, OTHER, SELFPAY ==
--- NOTE | 2023-12-29 15:40 | CTR_ITS ---
PROCEDURE INFORMATION: Exam: CT Chest With Contrast; Diagnostic Exam date and time: 12/29/2023 3:48 PM Age: 73 years old Clinical indication: Prior surgery; Surgery date: 6+ months; Surgery type: RT breast, hiatal hernia; Patient HX: Dysphagia, disphonia, hoarseness, follow up parotid cancer; Additional info: Dysphagia, dysphonia TECHNIQUE: Imaging protocol: Diagnostic computed tomography of the chest with contrast. Total images: 3 Radiation optimization: All CT scans at this facility use at least one of these dose optimization techniques: automated exposure control; mA and/or kV adjustment per patient size (includes targeted exams where dose is matched to clinical indication); or iterative reconstruction. Contrast material: OMNI 350; Contrast volume: 100 ml; Contrast route: INTRAVENOUS (IV); COMPARISON: CT chest wo con [id number] 06/19/2023 7:46 AM RADIATION DOSE METRICS: Total DLP (mGy-cm): 554.13 FINDINGS: Lungs: Mild dependent atelectasis. Pleural spaces: Unremarkable. No pneumothorax. No pleural effusion. Heart: Unremarkable. No cardiomegaly. No pericardial effusion. Lymph nodes: Calcified mediastinal and hilar nodes noted. Vasculature: Unremarkable. No aortic aneurysm. Gallbladder and biliary ducts: Prior cholecystectomy noted. Spleen: Incidental splenic granulomata are noted. Kidneys and ureters: 8 mm incidental left renal cyst requiring no further evaluation. Bones/joints: Unremarkable. No acute fracture. Soft tissues: Small calcifications noted within the right breast with an area of architectural distortion and extending to skin surface may represent prior breast surgery and should be correlated with prior mammograms. Finding is partially visualized but appears similar to most recent prior exam. Other findings: Mild atherosclerotic disease burden is evident. CT/CT chest w con* [id number] IMPRESSION: 1. Mild dependent atelectasis. 2. No evidence of metastatic disease. 3. Small calcifications noted within the right breast with an area of architectural distortion and extending to skin surface may represent prior breast surgery and should be correlated with prior mammograms. Finding is partially visualized but appears similar to most recent prior exam. COMMENTS: Consistent with the [employer]'s Incidental Findings Committee white paper (J Am Daniele Radiol 2018): Any incidental renal lesion less than 1 cm or classified as too small to characterize, or any incidental cystic renal lesion characterized as simple-appearing, is likely benign. No follow-up imaging is recommended for these lesions per consensus recommendations based on imaging criteria.
[2023-12-29] MEDS: iohexol 350 mg/mL 500 mL Btl (per mL) IV (15:53)
== END 2023-12-29 15:33 | disposition home or self-care (01) ==
LOC: RAD 15:32
PROVIDERS: PCP Family Medicine; Visit Provider Specialist
DX: R13.10 Dysphagia, unspecified (principal); J98.11 Atelectasis; I89.8 Other specified noninfective disorders of lymphatic vessels and lymph nodes; N28.1 Cyst of kidney, acquired; R92.1 Mammographic calcification found on diagnostic imaging of breast; Z90.49 Acquired absence of other specified parts of digestive tract
CPT/HCPCS: 71260; Q9967

== ENCOUNTER → 2024-01-07 16:07 | Outpatient (BNVA) | payer MEDICARE, OTHER, SELFPAY | PROVIDERS: PCP Family Medicine; Visit Provider Internal Medicine Critical Care Medicine | DX: G47.33 Obstructive sleep apnea (adult) (pediatric) (principal); I27.20 Pulmonary hypertension, unspecified; E66.01 Morbid (severe) obesity due to excess calories; I50.32 Chronic diastolic (congestive) heart failure; R06.09 Other forms of dyspnea; I34.0 Nonrheumatic mitral (valve) insufficiency; M05.79 Rheumatoid arthritis with rheumatoid factor of multiple sites without organ or systems involvement; Z68.41 Body mass index [BMI] 40.0-44.9, adult | CPT/HCPCS: 99215 ==

== ENCOUNTER 2024-01-18 13:05 | Outpatient (CLI) | payer MEDICARE, OTHER, SELFPAY ==
[2024-01-18 13:57] LABS: Anion Gap 14.7 (5-19); Blood Urea Nitrogen 15 mg/dL (8-23); Calcium 9.1 mg/dL (8.5-10.5); Carbon Dioxide 23 mmol/L (22-29); Chloride 105 mmol/L (98-107); Glucose 91 mg/dL (65-115); NT Pro B Type Natriuretic Pept 511 pg/mL (0-125); Osmolality Calculated 288 mOsm/kg (285-295); Potassium 3.7 mmol/L (3.5-5.1); Sodium 139 mmol/L (136-145)
== END 2024-01-18 13:06 | disposition home or self-care (01) ==
PROVIDERS: PCP Family Medicine; Visit Provider Internal Medicine Cardiovascular Disease
DX: I50.32 Chronic diastolic (congestive) heart failure (principal); R06.09 Other forms of dyspnea
CPT/HCPCS: 36415; 80048; 83880

== ENCOUNTER 2024-01-25 20:00 | Outpatient (CLI) | payer MEDICARE, OTHER, SELFPAY | END 2024-01-25 20:01 | disposition home or self-care (01) | LOC: SLEEP 01-26 02:04 | PROVIDERS: PCP Family Medicine; Visit Provider Internal Medicine Critical Care Medicine | DX: G47.33 Obstructive sleep apnea (adult) (pediatric) (principal); G47.36 Sleep related hypoventilation in conditions classified elsewhere | CPT/HCPCS: 95810 ==

== ENCOUNTER 2024-03-02 20:00 | Outpatient (CLI) | payer MEDICARE, OTHER, SELFPAY | END 2024-03-02 20:01 | disposition home or self-care (01) | LOC: SLEEP 03-03 00:08 | PROVIDERS: PCP Family Medicine; Visit Provider Internal Medicine Critical Care Medicine | DX: G47.33 Obstructive sleep apnea (adult) (pediatric) (principal); Z99.89 Dependence on other enabling machines and devices | CPT/HCPCS: 95811 ==

== ENCOUNTER 2024-03-23 10:51 | Outpatient (CLI) | payer MEDICARE, OTHER, SELFPAY ==
--- NOTE | 2024-03-23 10:59 | MM_ITS ---
WS: [id number] VIEWS: MLO, CC, and ML views both breasts. 3D digital tomosynthesis is also included in this exam. Comparison made with prior exam of 11/17/2008, 02/09/2020, 11/05/2017, 12/29/2014, 04/15/2017, 09/22/2017, 09/30/2018, 02/15/2021, 03/13/2022, 03/20/2023.. Findings: The breasts are extremely dense, which lowers the sensitivity of mammography. FINDINGS stable appearing postoperative changes seen in the anterior lateral RIGHT breast. No new mas s, architectural distortion or suspicious calcification. MM/MM diag BI tomosynthesis [id number] Impression: BI-RADS: 2 - Benign FOLLOW-UP: 1 Year Follow-up This mammogram was also analyzed by the Computer Aided Detection System [employer]2 Im[employer] e Hr Business Partner Consultant.
== END 2024-03-23 10:52 | disposition home or self-care (01) ==
LOC: RAD 10:52
PROVIDERS: PCP Family Medicine; Visit Provider Family Medicine
DX: Z12.31 Encounter for screening mammogram for malignant neoplasm of breast (principal)
CPT/HCPCS: 77062; G0279

== ENCOUNTER → 2024-04-06 16:55 | Outpatient (BNVA) | payer MEDICARE, OTHER, SELFPAY | PROVIDERS: PCP Family Medicine; Visit Provider Internal Medicine Cardiovascular Disease | DX: R06.02 Shortness of breath (principal) | CPT/HCPCS: 36415; 80048; 83880; 99214 ==

== ENCOUNTER 2024-04-25 14:51 | Outpatient (CLI) | payer MEDICARE, OTHER, SELFPAY ==
[2024-04-25 15:48] LABS: Blood Urea Nitrogen 13 mg/dL (8-23); Calcium 8.4 mg/dL (8.5-10.5); Carbon Dioxide 26 mmol/L (22-29); Chloride 105 mmol/L (98-107); Glucose 117 mg/dL (65-115); NT Pro B Type Natriuretic Pept 691 pg/mL (0-125); Osmolality Calculated 293 mOsm/kg (285-295); Sodium 141 mmol/L (136-145)
== END 2024-04-25 14:52 | disposition home or self-care (01) ==
LOC: LAB 14:51
PROVIDERS: Thoracic Surgery (Cardiothoracic Vascular Surgery); PCP Family Medicine; Visit Provider Internal Medicine Cardiovascular Disease
DX: I50.32 Chronic diastolic (congestive) heart failure (principal); I51.9 Heart disease, unspecified
CPT/HCPCS: 36415; 80048; 83880

== ENCOUNTER 2024-05-22 08:17 | Emergency (ER) | payer MEDICARE, OTHER, SELFPAY ==
[2024-05-22] VITALS (7 sets, daily range): BP systolic 123–155; BP diastolic 61–88; PULSE 59–64; RESP 14–25; TEMP 36.7; O2SAT 93–99; BMI 40.6
--- NOTE | 2024-05-22 08:26 | ECG_ITS ---
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 Measurements Intervals [place] Rate: 62 P: 23 WA: 149 QRS: 19 QRSD: 78 T: 51 QT: 387 QTc: 394 Interpretive Statements SINUS RHYTHM LOW QRS VOLTAGE IN PRECORDIAL LEADS [QRS DEFLECTION < 1.0 mV IN CHEST LEADS] Compared to ECG 01/31/2023 09:43:27 Low QRS voltage now present T-wave abnormality no longer present Electronically Signed On 05-22-2024 18:46:54 LAWN SPECIALIST by Dilip Dawkins M.D. [id number]
--- NOTE | 2024-05-22 08:54 | XRR_ITS ---
PROCEDURE INFORMATION: Exam: XR Chest Exam date and time: 05/22/2024 9:08 AM Age: 73 years old Clinical indication: Pain; Chest pressure; Additional info: Chest pain TECHNIQUE: Imaging protocol: Radiologic exam of the chest. Views: 1 view. COMPARISON: CT chest w con* [id number] 12/29/2023 3:48 PM FINDINGS: Lungs: The left heart border is obscured with possible left lower lobe hazy opacity. Pleural spaces: No significant pleural effusion. No definitive pneumothorax. Heart/Mediastinum: Numerous surgical clips around the gastric fundus and the gastroesophageal junction. The cardiomediastinal silhouette appears prominent accentuated by AP technique. Vasculature: Calcifications of the aortic arch. Bones/joints: Unremarkable. XR/XR chest 1V portable [id number] IMPRESSION: 1. The cardiomediastinal silhouette appears mildly prominent likely accentuated by AP technique. 2. Left lower lobe hazy opacity may represent atelectasis. No pneumothorax. No significant pleural effusion.
[2024-05-22 09:17] LABS: Basophils # 0.1 10^3/uL (0.0-0.1); Basophils % 1.2 %; Eosinophils # 0.1 10^3/uL (0.0-0.8); Eosinophils % 2.9 %; Hematocrit 31.1 % (36-47); Lymphocytes # 1.6 10^3/uL (0.8-4.8); Lymphocytes % 37.6 %; Mean Corpuscular HGB Conc 30.9 g/dL (30-55); Mean Corpuscular Hemoglobin 26.8 pg (27-33); Mean Corpuscular Volume 86.9 fl (85-98); Mean Platelet Volume 10.6 fL (7.4-10.4); Monocytes # 0.6 10^3/uL (0.2-0.9); Monocytes % 15.2 %; Neutrophils # 1.79 10^3/uL (1.8-7.7); Neutrophils % 42.6 %; Nucleated Red Blood Cells % 0 %; Platelet Count 169 10^3/cmm (157-399); Red Blood Count 3.58 10^6/uL (3.85-5.65); Red Cell Distribution Width 15.8 % (12.1-15.1)
[2024-05-22 09:31] LABS: Troponin(5th) Baseline 17 ng/L (0-10)
[2024-05-22 09:38] LABS: Alanine Aminotransferase 22 U/L (0-33); Alkaline Phosphatase 69 U/L (35-105); Anion Gap 17.5 (5-19); Aspartate Amino Transferase 28 U/L (0-32); Blood Urea Nitrogen 18 mg/dL (8-23); Calcium 8.8 mg/dL (8.5-10.5); Carbon Dioxide 22 mmol/L (22-29); Chloride 107 mmol/L (98-107); Creatinine Clr Calc Pharmacy 48.6727; Globulin 1.8 g/dL (1.3-4.6); Glucose 93 mg/dL (65-115); Lipase 42 U/L (13-60); NT Pro B Type Natriuretic Pept 720 pg/mL (0-125); Osmolality Calculated 298 mOsm/kg (285-295); Potassium 3.5 mmol/L (3.5-5.1); Sodium 143 mmol/L (136-145); Total Bilirubin 0.5 mg/dL (0.15-1.2); Total Protein 5.8 g/dL (6.6-8.7)
[2024-05-22 10:02] LABS: Bilirubin Urine Negative (Negative); Blood Urine Negative (Negative); Glucose Urine UA Negative (Normal); Ketones Urine Negative (Negative); Leukocyte Esterase Urine 1+ (Negative); Nitrate Urine Negative (Negative); Protein Urine Negative (Negative); Specific Gravity, Urine 1.006 (1.005-1.030); Urine Appearance Clear (CLEAR); Urine Color Yellow (Yellow); Urobilinogen Urine 0.2 mg/dL (Negative); pH Urine 5.5 (5-7)
[2024-05-22 10:04] LABS: Add Urine Microscopic? YES; Bacteria Urine None Seen /hpf; RBC Urine 0-2 /hpf (0-2); Squamous Epithelial Cell Urine 0-5 /hpf (0-5); WBC Urine 0-5 /hpf (0-5)
--- NOTE | 2024-05-22 10:55 | ECG_ITS ---
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 Measurements Intervals [place] Rate: 54 P: 16 CT: 138 QRS: 18 QRSD: 81 T: 32 QT: 436 QTc: 413 Interpretive Statements SINUS BRADYCARDIA LOW QRS VOLTAGE IN PRECORDIAL LEADS [QRS DEFLECTION < 1.0 mV IN CHEST LEADS] Compared to ECG 05/22/2024 08:26:44 Sinus rhythm no longer present Electronically Signed On 05-22-2024 19:00:01 ADJUNCT WRITING INSTRUCTOR by Dilip Dawkins M.D. [id number]
[2024-05-22 11:01] LABS: Troponin 5 2HR 16.08 ng/L (0-10); Troponin 5 2HR Delta -0.92 ABS# (0-10)
--- NOTE | 2024-05-22 12:45 | W.ED.CHESTPA ---
HPI - Chest Pain General: Chief Complaint: Chest Pain Stated Complaint: chets pain Time Seen by Provider: 05/22/24 08:50 History of Present Illness: This patient is a 73 year old presenting with tightness in her chest that was intermittent for the past few days and became constant this morning. She denies nausea, vomiting, cough, malaise. She has chronic shortness of breath. She doesn't want to call it chest pain - using words like pressure, tightness instead. She has had cardiac problems in the past as well as a blood clot in her leg years ago. She denies leg pain or swelling. She is on Apixaban and is compliant. She also has not had a normal appetite for the past few days. She arrived by EMS and was given ASA and nitro. She recently had an exacerbation of CHF and was on an increased dose of lasix and potassium. Dr. Reeves just put her back on her usual dose of lasix but a decreased dose of potassium. She had be on 20 mEq daily, then increased to 40 with the higher lasix dose, and then was dropped to 10 mEq. She thinks that was a mistake - but has been taking that dose. She has had problems with low potassium in the past and thinks this might be the problem today. Related Data Home Medications Medication Instructions Recorded Confirmed furosemide 20 mg tablet 20 mg PO DAILY 08/11/19 01/07/24 metoprolol tartrate 100 mg tablet 100 mg PO BID 08/11/19 01/07/24 omega 0-twx-ekg-fish oil 300 1 cap PO DAILY 08/15/19 01/07/24 mg-1,000 mg capsule (Fish Oil) potassium chloride 20 mEq 20 meq PO DAILY 08/15/19 01/07/24 tablet,extended release cholecalciferol (vitamin D3) 50 50 mcg PO DAILY 04/11/20 01/07/24 mcg (2,000 unit) capsule pregabalin 200 mg capsule (Lyrica) 200 mg PO BEDTIME 06/12/20 01/07/24 levothyroxine 100 mcg tablet 100 mcg PO DAILY 06/27/20 01/07/24 (Synthroid) vitamin E 268 mg (400 unit) capsule 400 unit PO BID 06/27/20 01/07/24 lisinopril 2.5 mg tablet 2.5 mg PO DAILY 09/12/20 01/07/24 red yeast rice 600 mg capsule 600 mg PO BID 08/21/21 01/07/24 acetaminophen 650 mg 1,300 mg PO Q12H PRN 03/12/23 01/07/24 tablet,extended release (Tylenol Arthritis Pain) diclofenac sodium 1 % topical gel 2 g topical QID PRN 03/12/23 01/07/24 pyridoxine (vitamin B6) 100 mg 50 mg PO DAILY 03/12/23 01/07/24 tablet cefdinir 300 mg capsule 300 mg PO DAILY 04/06/24 Previous Rx's Medication Instructions Recorded pantoprazole 40 mg tablet,delayed 40 mg PO BID #60 tabs 06/29/20 release galcanezumab-gnlm 120 mg/mL 120 mg SUBCUT .monthly #1 mL 02/24/23 subcutaneous pen injector (Emgality Pen) galcanezumab-gnlm 120 mg/mL 240 mg (2 mL) SUBCUT ONCE #1 mL 02/24/23 subcutaneous pen injector (Emgality Pen) fluticasone propionate 45 2 puff inhalation BID #12 grams 09/01/23 mcg-salmeterol 21 mcg/actuation HFA inhaler (Advair HFA) prednisone 10 mg tablet See Rx Instructions .Route 11/30/23 .COMPLEX PRN Shortness Of Breath #30 tabs apixaban 5 mg tablet (Eliquis) 5 mg PO BID #60 tabs 12/15/23 prednisone 2.5 mg tablet 2.5 mg PO DAILY #90 tabs 12/15/23 adalimumab 40 mg/0.8 mL 40 mg (0.8 mL) SUBCUT Q14D #2 ea 01/04/24 subcutaneous pen kit (Humira Pen) hydroxychloroquine 200 mg tablet See Rx Instructions PO .COMPLEX 01/27/24 #135 tabs potassium chloride 10 mEq See Rx Instructions .Route 05/03/24 capsule,extended release .COMPLEX #20 caps Allergies Allergy/AdvReac Type Severity Reaction Status Date / Time azithromycin [From Zithromax] Allergy ADR-Hyperte Verified 04/06/24 15:46 nsion duloxetine [From Cymbalta] Allergy PT states Verified 04/06/24 15:46 she felt like she was having mini seizures gabapentin Allergy ADR-Fatigue Verified 04/06/24 15:46 d leflunomide Allergy numbness Verified 04/06/24 15:46 and tingling of feet naproxen Allergy edema, Verified 04/06/24 15:46 itching nifedipine [From Procardia] Allergy ADR-Hyperte Verified 04/06/24 15:46 nsion hydrocodone [From Vicodin] AdvReac itching Verified 04/06/24 15:46 PFSH ED PFSH: Medical History Trochanteric bursitis of right hip Migraine History of breast cancer Radiation therapy TIA (transient ischemic attack) COVID-19 (05/2022) CKD (chronic kidney disease) Osteopenia Osteoarthritis Hypotension Recurrent pulmonary embolism Bilateral leg edema Mitral regurgitation Elevated cholesterol Benign essential hypertension Hypothyroidism History of hip fracture High risk medication use Rheumatoid arthritis with rheumatoid factor Closed fracture of greater trochanter of left femur (06/2019) Surgical History History of colonoscopy 01/2021 History of lumpectomy History of hip replacement (06/2018) History of hysterectomy History of parotid gland removal History of appendectomy Family History Father CAD (coronary artery disease), Onset Age: 40 Lung disease Cancer Brother Cancer Stroke Grandmother Cancer Family/Other Cancer Mother Stroke Sister CAD (coronary artery disease), Onset Age: 55 [place] Other Arthritis COPD (chronic obstructive pulmonary disease) Hypertension Denies family history of Rheumatoid arthritis Diabetes Lupus Clotting disorder Dementia Chronic kidney disease (CKD) Suicide Anesthesia complication Bleeding disorder Social History Smoking and tobacco/nicotine status: never used tobacco/nicotine Alcohol intake: never Substance/Drug Use: never Physical Exam Const: COMMON NORMALS: no acute distress, patient oriented x3, no limitations and alert GENERAL APPEARANCE: cooperative and comfortable HENMT: HEAD & SCALP: normal to inspection FACE & SINUS: normal facial exam Eye: GENERAL EYE: appearance normal, both eyes and all related structures Neck/C-Spine: COMMON NORMALS: supple, no meningeal signs and no JVD Chest: COMMONS NORMALS: normal inspection of the chest Resp: COMMON NORMALS: normal respiratory effort, No use of accessory muscles and clear to auscultation bilaterally AUSCULTATION: clear to auscultation bilaterally Cardio: COMMON NORMALS: no JVD, regular rate, regular rhythm and No murmurs present (Cardio) RATE: regular rate RHYTHM: regular rhythm GI: COMMON NORMALS: Normal to inspection, nondistended, normoactive bowel sounds present, Soft to palpation and non-tender INSPECTION: Yes normal to inspection AUSCULTATION: Yes normoactive bowel sounds PALPATION: Yes Soft to palpation Back/Pelvis: COMMON NORMALS: thoracic and lumbar spine normal to inspection Extremity: COMMON NORMALS: normal to inspection Neuro: COMMON NORMALS: patient oriented x3, moves all extremities, no focal motor deficits and no sensory deficits noted SENSORIUM/ORIENTATION: Yes alert MENINGEAL SIGNS: Yes no meningeal signs Psych: COMMON NORMALS: mental status grossly normal, cooperative and normal affect Skin: COMMON NORMALS: no rashes or lesions noted and turgor normal GENERAL SKIN EXAM: no rashes or lesions noted and turgor normal Course Vital Signs: Vital signs: Vital Signs Temperature 98.1 F 05/22/24 08:31 Pulse Rate 60 05/22/24 13:22 Respiratory Rate 24 H 05/22/24 11:05 Blood Pressure 136/67 05/22/24 13:22 Pulse Oximetry 95 05/22/24 13:22 Oxygen Delivery Me thod Room Air 05/22/24 08:31 MDM - Chest Pain Medical Decision Making Multiple risk factors for heart disease and PE - however testing was negative for ischemia or PE, and potassium was low normal. Patient was reassured and able to be discharged home. She also has a history of RA but doesn't appear to have any acute cardiopulmonary issues that could be related to that diagnosis. Lab Data 05/22/24 09:00 05/22/24 09:00 Radiology Impressions Chest X-Ray 05/22/24 08:54 IMPRESSION: 1. The cardiomediastinal silhouette appears mildly prominent likely accentuated by AP technique. 2. Left lower lobe hazy opacity may represent atelectasis. No pneumothorax. No significant pleural effusion. Laboratory Results WBC 4.20 10^3/uL (3.29-11.43) 05/22/24 09:00 RBC 3.58 10^6/uL (3.85-5.65) L 05/22/24 09:00 Hgb 9.60 g/dL (11.27-16.99) L 05/22/24 09:00 Hct 31.1 % (36-47) L 05/22/24 09:00 MCV 86.9 fl (85-98) 05/22/24 09:00 MCH 26.8 pg (27-33) L 05/22/24 09:00 MCHC 30.9 g/dL (30-55) 05/22/24 09:00 RDW 15.8 % (12.1-15.1) H 05/22/24 09:00 Plt Count 169 10^3/cmm (157-399) 05/22/24 09:00 MPV 10.6 fL (7.4-10.4) H 05/22/24 09:00 Neut % (Auto) 42.6 % 05/22/24 09:00 Lymph % (Auto) 37.6 % 05/22/24 09:00 [place] % (Auto) 15.2 % 05/22/24 09:00 Eos % (Auto) 2.9 % 05/22/24 09:00 Baso % (Auto) 1.2 % 05/22/24 09:00 Neut # (Auto) 1.79 10^3/uL (1.8-7.7) L 05/22/24 09:00 Lymph # (Auto) 1.6 10^3/uL (0.8-4.8) 05/22/24 09:00 [place] # (Auto) 0.6 10^3/uL (0.2-0.9) 05/22/24 09:00 Eos # (Auto) 0.1 10^3/uL (0.0-0.8) 05/22/24 09:00 Baso # (Auto) 0.1 10^3/uL (0.0-0.1) 05/22/24 09:00 Nucleated RBC % (auto) 0 % 05/22/24 09:00 Nucleated RBCs # 0.0 /100WBC 05/22/24 09:00 Sodium 143 mmol/L (136-145) 05/22/24 09:00 Potassium 3.5 mmol/L (3.5-5.1) 05/22/24 09:00 Chloride 107 mmol/L (98-107) 05/22/24 09:00 Carbon Dioxide 22 mmol/L (22-29) 05/22/24 09:00 Anion Gap 17.5 (5-19) 05/22/24 09:00 BUN 18 mg/dL (8-23) 05/22/24 09:00 Creatinine 1.1 mg/dL (0.5-0.9) H 05/22/24 09:00 GFR Calculation Not Reportable 05/22/24 09:00 Glucose 93 mg/dL (65-115) 05/22/24 09:00 Calculated Osmolality 298 mOsm/kg (285-295) H 05/22/24 09:00 Calcium 8.8 mg/dL (8.5-10.5) 05/22/24 09:00 Total Bilirubin 0.5 mg/dL (0.15-1.2) 05/22/24 09:00 AST 28 U/L (0-32) 05/22/24 09:00 ALT 22 U/L (0-33) 05/22/24 09:00 Alkaline Phosphatase 69 U/L (35-105) 05/22/24 09:00 Troponin T Baseline 17 ng/L (0-10) H 05/22/24 09:00 Troponin T 120 Minute 16.08 ng/L (0-10) H 05/22/24 10:36 Delta Troponin T -0.92 ABS# (0-10) L 05/22/24 10:36 NT-Pro-B Natriuret Pep 720 pg/mL (0-125) H 05/22/24 09:00 Total Protein 5.8 g/dL (6.6-8.7) L 05/22/24 09:00 Albumin 4.0 g/dL (3.5-5.2) 05/22/24 09:00 Globulin 1.8 g/dL (1.3-4.6) 05/22/24 09:00 Lipase 42 U/L (13-60) 05/22/24 09:00 Urine Color Yellow (Yellow) 05/22/24 09:50 Urine Appearance Clear (CLEAR) 05/22/24 09:50 Urine pH 5.5 (5-7) 05/22/24 09:50 Ur Specific [place] 1.006 (1.005-1.030) 05/22/24 09:50 Urine Protein Negative (Negative) 05/22/24 09:50 Urine Glucose (UA) Negative (Normal) 05/22/24 09:50 Urine Ketones Negative (Negative) 05/22/24 09:50 Urine Blood Negative (Negative) 05/22/24 09:50 Urine Nitrate Negative (Negative) 05/22/24 09:50 Urine Bilirubin Negative (Negative) 05/22/24 09:50 Urine Urobilinogen 0.2 mg/dL (Negative) 05/22/24 09:50 Ur Leukocyte Esterase 1+ (Negative) A 05/22/24 09:50 Urine RBC 0-2 /hpf (0-2) 05/22/24 09:50 Urine WBC 0-5 /hpf (0-5) 05/22/24 09:50 Ur Squamous Epith Cells 0-5 /hpf (0-5) 05/22/24 09:50 Amorphous Sediment Not Reportable 05/22/24 09:50 Urine Bacteria None seen /hpf (NONE) 05/22/24 09:50 Hyaline Casts 0.40 /lpf 05/22/24 09:50 All radiology interpretation(s) finalized by discharge Discharge Plan Discharge Patient Disposition: Home Clinical Impression: Chest pain Rheumatoid arthritis with rheumatoid factor Qualifiers: Rheumatoid arthritis location: multiple sites Qualified Code(s): M05.79 - Rheumatoid arthritis with rheumatoid factor of multiple sites without organ or systems involvement Condition: Stable Prescriptions: No Action omega 3-kad-guf-fish oil [Fish Oil] 300-1,000 mg capsule 1 cap PO DAILY potassium chloride 20 mEq tablet extended release 20 meq PO DAILY lisinopril 2.5 mg tablet 2.5 mg PO DAILY pregabalin [Lyrica] 200 mg capsule 200 mg PO BEDTIME red yeast rice 600 mg capsule 600 mg PO BID Rx Instructions: give with meal/snack metoprolol tartrate 100 mg tablet 100 mg PO BID furosemide 20 mg tablet 20 mg PO DAILY cholecalciferol (vitamin D3) 50 mcg (2,000 unit) capsule 50 mcg PO DAILY acetaminophen [Tylenol Arthritis Pain] 650 mg tablet extended release 1,300 mg PO Q12H PRN diclofenac sodium 1 % gel 2 g topical QID PRN Rx Instructions: apply to affected area as needed pyridoxine (vitamin B6) 100 mg tablet 50 mg PO DAILY cefdinir 300 mg capsule 300 mg PO DAILY Rx Instructions: buttermilk drier operator - Mon, Wed, Fri Eliquis 5 mg tablet 5 mg PO BID Qty: 60 3RF prednisone 2.5 mg tablet 2.5 mg PO DAILY Qty: 90 1RF Emgality Pen 120 mg/mL pen injector 240 mg SUBCUT ONCE Qty: 1 0RF Emgality Pen 120 mg/mL pen injector 120 mg SUBCUT .monthly Qty: 1 3RF fluticasone propion-salmeterol [Advair HFA] 45-21 mcg/actuation HFA aerosol inhaler 2 puff inhalation BID Qty: 12 6RF prednisone 10 mg tablet See Rx Instructions .ROUTE .COMPLEX PRN (Reason: Shortness Of Breath) Qty: 30 1RF Rx Instructions: 10 mg orally DAILY FOR 3 TO 7 DAYS NEEDED Humira Pen 40 mg/0.8 mL pen injector kit 40 mg SUBCUT Q14D Qty: 2 3RF Hold Instructions: Resume on 03/12/23. Rx Instructions: ON THURSDAY hydroxychloroquine 200 mg tablet See Rx Instructions PO .COMPLEX Qty: 135 1RF Rx Instructions: Alternate taking 1 tab today then 2 tabs tomorrow. PO; potassium chloride 10 mEq capsule, extended release See Rx Instructions .ROUTE .COMPLEX Qty: 20 1RF Dose Instruction: take 1 capsule BY MOUTH DAILY Rx Instructions: take 1 capsule BY MOUTH DAILY levothyroxine [Synthroid] 100 mcg tablet 100 mcg PO DAILY vitamin E 400 unit Capsule 400 unit PO BID pantoprazole 40 mg tablet,delayed release (DR/EC) 40 mg PO BID Qty: 60 0RF Discharge Orders: Discharge ED (Routine); Ordered 05/22/24 Ordered By: Doretha Ferreira Referrals: Mihaela Miguel MD [Primary Care Provider] - Patient Instructions: Opioid Safety, Pain Management Coding Level of Care Code ED Wet Process Assistant Head Miller for [facility]
== END 2024-05-22 13:24 | disposition home or self-care (01) ==
PROVIDERS: Emergency Provider Emergency Medicine; PCP Family Medicine
DX: R07.9 Chest pain, unspecified (principal); M05.79 Rheumatoid arthritis with rheumatoid factor of multiple sites without organ or systems involvement; Z79.01 Long term (current) use of anticoagulants; Z86.73 Personal history of transient ischemic attack (TIA), and cerebral infarction without residual deficits; I12.9 Hypertensive chronic kidney disease with stage 1 through stage 4 chronic kidney disease, or unspecified chronic kidney disease; N18.9 Chronic kidney disease, unspecified
CPT/HCPCS: 36415; 71045; 80053; 81001; 83690; 83880; 84484; 85025; 93005; 99285

== ENCOUNTER 2024-07-22 10:43 | Emergency (ER) | payer MEDICARE, OTHER, SELFPAY ==
[2024-07-22 10:56] VITALS: BP 149/80; PULSE 64; RESP 16; TEMP 36.7; O2SAT 98; BMI 43.4
--- NOTE | 2024-07-22 11:05 | CTR_ITS ---
PROCEDURE INFORMATION: Exam: CT Head Without Contrast Exam date and time: 07/22/2024 11:33 AM Age: 74 years old Clinical indication: Injury or trauma; Fall; Blunt trauma (contusions or hematomas); Additional info: Fall, blood thinners TECHNIQUE: Imaging protocol: Computed tomography of the head without contrast. Radiation optimization: All CT scans at this facility use at least one of these dose optimization techniques: automated exposure control; mA and/or kV adjustment per patient size (includes targeted exams where dose is matched to clinical indication); or iterative reconstruction. COMPARISON: CT angio headneck 01/31/2023 11:30 AM RADIATION DOSE METRICS: Total DLP (mGy-cm): 1124.85 FINDINGS: Brain: No acute intracranial hemorrhage or abnormal intracranial mass effect is identified. Mild age-related generalized cerebral volume loss is present. No subdural collections are seen. Cerebral ventricles: Size within normal range for age. No midline shift. Paranasal sinuses: Visualized portions of paranasal sinuses are well aerated. Mastoid air cells: Visualized portions of mastoid sinuses are not opacified. Bones: Unremarkable. No acute fracture. Soft tissues: Other than as stated above, no obvious acute abnormality. CT/CT head wo con* [id number] IMPRESSION: No acute intracranial hemorrhage or mass effect.
--- NOTE | 2024-07-22 11:05 | CTR_ITS ---
PROCEDURE INFORMATION: Exam: CT Chest Without Contrast; Diagnostic Exam date and time: 07/22/2024 11:36 AM Age: 74 years old Clinical indication: Injury or trauma; Fall; Blunt trauma (contusions or hematomas); Prior surgery; Surgery date: 6+ months; Surgery type: RT breast hernia; History of parotid and breast cancer; Additional info: Traumatic right chest pain TECHNIQUE: Imaging protocol: Diagnostic computed tomography of the chest without contrast. Radiation optimization: All CT scans at this facility use at least one of these dose optimization techniques: automated exposure control; mA and/or kV adjustment per patient size (includes targeted exams where dose is matched to clinical indication); or iterative reconstruction. COMPARISON: CT chest w con* [id number] 12/29/2023 3:48 PM RADIATION DOSE METRICS: Total DLP (mGy-cm): 588.8 FINDINGS: Lungs: Mild dependent atelectasis in the lower lobes. Pleural spaces: Unremarkable. No pneumothorax. No pleural effusion. Heart: Unremarkable. No cardiomegaly. No pericardial effusion. Coronary arteries: Coronary artery calcifications. Lymph nodes: Calcified central lymph nodes particularly on the right side. Vasculature: Unremarkable. No aortic aneurysm. Diaphragm: Hiatal hernia. Liver: Calcified granuloma in the liver and spleen. Gallbladder and biliary ducts: Cholecystectomy. Kidneys: Bilateral nonobstructing renal calculi. Bones/joints: Unremarkable. No acute fracture. Soft tissues: Unremarkable. CT/CT chest con [id number] IMPRESSION: No acute cardiopulmonary disease.
--- NOTE | 2024-07-22 11:05 | XR_ITS ---
WS: [id number] Exam: XR shoulder LT min 2V* [id number] Date/Time of Exam: 07/22/2024 11:11 AM Reason For Exam: fall, pain No fracture noted. Mild DJD and arthrosis at the AC joint. Soft tissue calcification along the amanuel l head that might indicate calcific tendinitis and/or bursitis. XR/XR shoulder LT min 2V* [id number] IMPRESSION: 1. Mild AC joint DJD and arthrosis. 2. Small calcification along the humeral head that might indicate calcific tend initis and/or bursitis.
--- NOTE | 2024-07-22 11:06 | XR_ITS ---
WS: [id number] Exam: XR hip RT 2-3V wo/w pel* [id number] Date/Time of Exam: 07/22/2024 11:11 AM Reason For Exam: hip pain Comparison 04/15/2013. No fracture. Mild to moderate degenerative narrowing of the joint compartment. Normal soft tissues. A nchoring screws in both pubic rami. LEFT hip prosthesis intact as visualized. XR/XR hip RT 2-3V wo/w pel* [id number] IMPRESSION: 1. Degenerative change of the RIGHT hip. No other significant finding.
--- NOTE | 2024-07-22 11:23 | W.ED.FALL ---
HPI - Fall General: Chief Complaint: Fall Stated Complaint: fall - wrist, shoulder, hip pain Time Seen by Provider: 07/22/24 10:48 History of Present Illness: 74-year-old female with a history of obesity, migraines, TIA, chronic kidney disease, pulmonary embolism, mitral regurg, hyperlipidemia, hypertension and hypothyroidism who presents to the emergency room after tripping and falling. She is having pain in her left shoulder. Her right hip. And her right ribs. She did not hit her head she does not think but she is on Eliquis for pulmonary embolism. No loss of consciousness. No altered mental status. No shortness of breath. No abdominal pain. No nausea or vomiting. Related Data Home Medications Medication Instructions Recorded Confirmed furosemide 20 mg tablet 20 mg PO DAILY 08/11/19 07/22/24 metoprolol tartrate 100 mg tablet 100 mg PO BID 08/11/19 07/22/24 omega 2-vnc-cuo-fish oil 300 1 cap PO DAILY 08/15/19 07/22/24 mg-1,000 mg capsule (Fish Oil) potassium chloride 20 mEq 20 meq PO DAILY 08/15/19 07/22/24 tablet,extended release cholecalciferol (vitamin D3) 50 50 mcg PO DAILY 04/11/20 07/22/24 mcg (2,000 unit) capsule pregabalin 200 mg capsule (Lyrica) 200 mg PO BEDTIME 06/12/20 07/22/24 levothyroxine 100 mcg tablet 100 mcg PO DAILY 06/27/20 07/22/24 (Synthroid) vitamin E 268 mg (400 unit) capsule 400 unit PO BID 06/27/20 07/22/24 lisinopril 2.5 mg tablet 2.5 mg PO DAILY 09/12/20 07/22/24 red yeast rice 600 mg capsule 600 mg PO BID 08/21/21 07/22/24 acetaminophen 650 mg 1,300 mg PO Q12H PRN Pain 03/12/23 07/22/24 tablet,extended release (Tylenol Arthritis Pain) diclofenac sodium 1 % topical gel 2 g topical QID PRN Pain 03/12/23 07/22/24 pyridoxine (vitamin B6) 100 mg 50 mg PO DAILY 03/12/23 07/22/24 tablet cefdinir 300 mg capsule 300 mg PO DAILY 04/06/24 07/22/24 Previous Rx's Medication Instructions Recorded pantoprazole 40 mg tablet,delayed 40 mg PO BID #60 tabs 06/29/20 release fluticasone propionate 45 2 puff inhalation BID #12 grams 09/01/23 mcg-salmeterol 21 mcg/actuation HFA inhaler (Advair HFA) prednisone 10 mg tablet See Rx Instructions .Route 11/30/23 .COMPLEX PRN Shortness Of Breath #30 tabs apixaban 5 mg tablet (Eliquis) 5 mg PO BID #60 tabs 12/15/23 adalimumab 40 mg/0.8 mL 40 mg (0.8 mL) SUBCUT Q14D #2 ea 01/04/24 subcutaneous pen kit (Humira Pen) hydroxychloroquine 200 mg tablet See Rx Instructions PO .COMPLEX 01/27/24 #135 tabs galcanezumab-gnlm 120 mg/mL 120 mg SUBCUT .monthly #1 mL 05/30/24 subcutaneous pen injector (Emgality Pen) prednisone 2.5 mg tablet 2.5 mg PO DAILY #90 tabs 06/23/24 cyclobenzaprine 10 mg tablet 10 mg PO Q8H PRN muscle spasm #20 07/22/24 tabs diclofenac sodium 50 mg 50 mg PO BID PRN pain #14 tabs 07/22/24 tablet,delayed release tramadol 50 mg tablet 50 mg PO Q8H PRN pain #20 tabs 07/22/24 Allergies Allergy/AdvReac Type Severity Reaction Status Date / Time azithromycin [From Zithromax] Allergy ADR-Hyperte Verified 04/06/24 15:46 nsion duloxetine [From Cymbalta] Allergy PT states Verified 04/06/24 15:46 she felt like she was having mini seizures gabapentin Allergy ADR-Fatigue Verified 04/06/24 15:46 d leflunomide Allergy numbness Verified 04/06/24 15:46 and tingling of feet naproxen Allergy edema, Verified 04/06/24 15:46 itching nifedipine [From Procardia] Allergy ADR-Hyperte Verified 04/06/24 15:46 nsion hydrocodone [From Vicodin] AdvReac itching Verified 04/06/24 15:46 Review of Systems Narrative: Constitutional symptoms: Negative except as documented in HPI. Skin symptoms: Negative except as documented in HPI. Eye symptoms: Negative except as documented in HPI. ENMT symptoms: Negative except as documented in HPI. Respiratory symptoms: Negative except as documented in HPI. Cardiovascular symptoms: Negative except as documented in HPI. Gastrointestinal symptoms: Negative except as documented in HPI. Genitourinary symptoms: Negative except as documented in HPI. Musculoskeletal symptoms: Negative except as documented in HPI. Neurologic symptoms: Negative except as documented in HPI. Psychiatric symptoms: Negative except as documented in HPI. Endocrine symptoms: Negative except as documented in HPI. PFSH ED PFSH: Medical History Trochanteric bursitis of right hip Migraine History of breast cancer Radiation therapy TIA (transient ischemic attack) COVID-19 (05/2022) CKD (chronic kidney disease) Osteopenia Osteoarthritis Hypotension Recurrent pulmonary embolism Bilateral leg edema Mitral regurgitation Elevated cholesterol Benign essential hypertension Hypothyroidism History of hip fracture High risk medication use Rheumatoid arthritis with rheumatoid factor Closed fracture of greater trochanter of left femur (06/2019) Surgical History History of colonoscopy 01/2021 History of lumpectomy History of hip replacement (06/2018) History of hysterectomy History of parotid gland removal History of appendectomy Family History Father CAD (coronary artery disease), Onset Age: 40 Lung disease Cancer Brother Cancer Stroke Grandmother Cancer Family/Other Cancer Mother Stroke Sister CAD (coronary artery disease), Onset Age: 55 [place] Other Arthritis COPD (chronic obstructive pulmonary disease) Hypertension Denies family history of Rheumatoid arthritis Diabetes Lupus Clotting disorder Dementia Chronic kidney disease (CKD) Suicide Anesthesia complication Bleeding disorder Social History Smoking and tobacco/nicotine status: never used tobacco/nicotine Alcohol intake: never Substance/Drug Use: never Physical Exam Narrative: EXAM NARRATIVE: General: Alert, no acute distress. Skin: Warm, dry. Head: Normocephalic, atraumatic. Neck: Supple, trachea midline. Eye: Extraocular movements are intact. Ears, nose, mouth and throat: mucosa moist. Cardiovascular: Regular, Normal peripheral perfusion. Respiratory: Lungs are clear to auscultation, respirations are non-labored, breath sounds are equal, Symmetrical chest wall expansion. Gastrointestinal: Soft, Nontender, Non distended Musculoskeletal: Pain with movement of the left shoulder. No obvious deformities. Pain in the right hip. No shortening or rotation of the leg. Pain in the right rib cage. Neurological: Alert and oriented, No focal neurological deficit observed. Psychiatric: Cooperative, appropriate mood & affect. Course Vital Signs: Vital signs: Vital Signs Temperature 98.1 F 07/22/24 10:56 Pulse Rate 80 07/22/24 12:00 Respiratory Rate 16 07/22/24 12:00 Blood Pressure 151/74 07/22/24 12:00 Pulse Oximetry 98 07/22/24 12:00 Oxygen Delivery Me thod Room Air 07/22/24 10:56 MDM - Fall Medical Decision Making CT head: No acute intracranial process. no intracranial hemorrhage, no evidence of infarct. no evidence of acute fracture.This was reviewed and interpreted by myself the ER physician. CT of the chest without contrast: No fractures. No infiltrates. No pneumothorax. This was reviewed and interpreted by myself the emergency room physician. I also reviewed the radiology report. X-ray of the left shoulder: Degenerative changes but no obvious fractures or dislocations. This was reviewed and interpreted by myself the emergency room physician. I also reviewed the radiology report. X-ray of the right hip: No fractures or dislocations. Degenerative changes. This was reviewed and interpreted by myself the emergency room physician. I also reviewed the radiology report. X-ray of the right knee: No fractures. No dislocations. Degenerative changes. This was reviewed and interpreted by myself the emergency room physician. I also reviewed the radiology report. Assessment and plan: Fall Hip injury Shoulder injury Rib contusions - Discharged home - Discussed plan with patient. Answered any questions. - Evaluation and treatment of this problem were appropriate in the emergency setting. Lab Data Radiology Impressions Chest CT 07/22/24 11:05 IMPRESSION: No acute cardiopulmonary disease. Head CT 07/22/24 11:05 IMPRESSION: No acute intracranial hemorrhage or mass effect. Shoulder X-Ray 07/22/24 11:05 IMPRESSION: 1. Mild AC joint DJD and arthrosis. 2. Small calcification along the humeral head that might indicate calcific tendinitis and/or bursitis. Hip/Pelvis X-Ray 07/22/24 11:06 IMPRESSION: 1. Degenerative change of the RIGHT hip. No other significant finding. All radiology interpretation(s) finalized by discharge Discharge Plan Discharge Patient Disposition: Home Clinical Impression: Fall, Chronic anticoagulation Shoulder injury Qualifiers: Encounter type: initial encounter Laterality: left Qualified Code(s): S49.92XA - Unspecified injury of left shoulder and upper arm, initial encounter Hip injury Qualifiers: Encounter type: initial encounter Laterality: right Qualified Code(s): S79.911A - Unspecified injury of right hip, initial encounter Rib contusion Qualifiers: Encounter type: initial encounter Laterality: right Qualified Code(s): S20.211A - Contusion of right front wall of thorax, initial encounter Condition: Stable Prescriptions: New cyclobenzaprine 10 mg tablet 10 mg PO Q8H PRN (Reason: muscle spasm) Qty: 20 0RF tramadol 50 mg tablet 50 mg PO Q8H PRN (Reason: pain) Qty: 20 0RF diclofenac sodium 50 mg tablet,delayed release (DR/EC) 50 mg PO BID PRN (Reason: pain) Qty: 14 0RF No Action omega 5-dhz-lbl-fish oil [Fish Oil] 300-1,000 mg capsule 1 cap PO DAILY potassium chloride 20 mEq tablet extended release 20 meq PO DAILY lisinopril 2.5 mg tablet 2.5 mg PO DAILY pregabalin [Lyrica] 200 mg capsule 200 mg PO BEDTIME red yeast rice 600 mg capsule 600 mg PO BID Rx Instructions: give with meal/snack metoprolol tartrate 100 mg tablet 100 mg PO BID furosemide 20 mg tablet 20 mg PO DAILY cholecalciferol (vitamin D3) 50 mcg (2,000 unit) capsule 50 mcg PO DAILY acetaminophen [Tylenol Arthritis Pain] 650 mg tablet extended release 1,300 mg PO Q12H PRN (Reason: Pain) diclofenac sodium 1 % gel 2 g topical QID PRN (Reason: Pain) Rx Instructions: apply to affected area as needed pyridoxine (vitamin B6) 100 mg tablet 50 mg PO DAILY cefdinir 300 mg capsule 300 mg PO DAILY Rx Instructions: [facility] - Mon, Wed, Fri Eliquis 5 mg tablet 5 mg PO BID Qty: 60 3RF fluticasone propion-salmeterol [Advair HFA] 45-21 mcg/actuation HFA aerosol inhaler 2 puff inhalation BID Qty: 12 6RF prednisone 10 mg tablet See Rx Instructions .ROUTE .COMPLEX PRN (Reason: Shortness Of Breath) Qty: 30 1RF Rx Instructions: 10 mg orally DAILY FOR 3 TO 7 DAYS NEEDED Humira Pen 40 mg/0.8 mL pen injector kit 40 mg SUBCUT Q14D Qty: 2 3RF Hold Instructions: Resume on 03/12/23. Rx Instructions: ON THURSDAY hydroxychloroquine 200 mg tablet See Rx Instructions PO .COMPLEX Qty: 135 1RF Rx Instructions: Alternate taking 1 tab today then 2 tabs tomorrow. PO; Emgality Pen 120 mg/mL pen injector 120 mg SUBCUT .monthly Qty: 1 3RF prednisone 2.5 mg tablet 2.5 mg PO DAILY Qty: 90 1RF levothyroxine [Synthroid] 100 mcg tablet 100 mcg PO DAILY vitamin E 400 unit Capsule 400 unit PO BID pantoprazole 40 mg tablet,delayed release (DR/EC) 40 mg PO BID Qty: 60 0RF Discharge Orders: Discharge ED (Routine); Ordered 07/22/24 Ordered By: Addis Berry Referrals: Mihaela Miguel MD [Primary Care Provider] - Discharge Diet: Usual diet Discharge Activity: Increase activity as tolerated Patient Instructions: Opioid Safety, Pain Management Activity Restrictions/Additional Instructions: Thank you for choosing [facility] for your healthcare needs today. Please realize this is an emergency room and that we are providing you with a medical screening exam and this may not be complete and all inclusive of all the testing and or work up that you may need to determine your ailment or severity of your illness. You have been screened and evaluated and felt safe for discharge. Health conditions do change or evolve sometimes and as such it is important that you follow up with your Primary Doctor to be re checked, 3-5 days is a general good time frame for follow up. You are always welcome to return to the ED for re assessment if your symptoms are worsening or you have new concerns Coding Level of Care Code ED Compressor Stations Superintendent for Champ Ellis
[2024-07-22 11:45] VITALS: BP 152/91; PULSE 69; RESP 16; O2SAT 97
[2024-07-22] MEDS: acetaminophen 500 mg Tablet 1000 MG PO (11:51)
[2024-07-22 12:00] VITALS: BP 151/74; PULSE 80; RESP 16; O2SAT 98
--- NOTE | 2024-07-22 12:18 | XR_ITS ---
WS: [id number] Exam: XR knee RT 3V* [id number] Date/Time of Exam: 07/22/2024 12:23 PM Reason For Exam: fall, knee pain No acute fracture. Slight medial joint space narrowing. No joint effusion. Soft tissue swelling over the patella. XR/XR knee RT 3V* [id number] IMPRESSION: 1. No acute fracture.
[2024-07-22 12:52] VITALS: BP 157/88; PULSE 70; RESP 16; O2SAT 97
[2024-07-22] MEDS: TRAMadol 50 mg Tablet PO (12:57)
== END 2024-07-22 13:06 | disposition home or self-care (01) ==
PROVIDERS: Emergency Provider Emergency Medicine; PCP Family Medicine
DX: S49.92XA Unspecified injury of left shoulder and upper arm, initial encounter (principal); S79.911A Unspecified injury of right hip, initial encounter; S20.211A Contusion of right front wall of thorax, initial encounter; W19.XXXA Unspecified fall, initial encounter; Z79.01 Long term (current) use of anticoagulants; Z86.73 Personal history of transient ischemic attack (TIA), and cerebral infarction without residual deficits; N18.9 Chronic kidney disease, unspecified
CPT/HCPCS: 70450; 71250; 73030; 73502; 73562; 99284

== ENCOUNTER → 2024-07-26 14:39 | Outpatient (BNVA) | payer MEDICARE, OTHER, SELFPAY | PROVIDERS: PCP Family Medicine; Visit Provider Internal Medicine Rheumatology | DX: M05.79 Rheumatoid arthritis with rheumatoid factor of multiple sites without organ or systems involvement (principal); Z79.899 Other long term (current) drug therapy; Z71.89 Other specified counseling; N18.31 Chronic kidney disease, stage 3a; R06.02 Shortness of breath | CPT/HCPCS: 99214 ==

== ENCOUNTER 2024-08-16 11:57 | Outpatient (RCR) | payer MEDICARE, OTHER, SELFPAY | END 2024-08-19 23:59 | disposition home or self-care (01) | LOC: SPT 11:57 | PROVIDERS: Visit Provider Electrodiagnostic Medicine | DX: M75.92 Shoulder lesion, unspecified, left shoulder (principal) | CPT/HCPCS: 97110; 97140; 97161 ==

== ENCOUNTER 2024-08-20 06:30 | Outpatient (RCR) | payer MEDICARE, OTHER, SELFPAY | END 2024-09-08 14:44 | disposition home or self-care (01) | LOC: SPT 06:30 | PROVIDERS: Visit Provider Electrodiagnostic Medicine | DX: M75.92 Shoulder lesion, unspecified, left shoulder (principal) | CPT/HCPCS: 97110; 97140 ==

== ENCOUNTER → 2024-10-05 14:10 | Outpatient (BNVA) | payer MEDICARE, OTHER, SELFPAY | PROVIDERS: PCP Family Medicine; Visit Provider Internal Medicine Cardiovascular Disease | DX: I34.0 Nonrheumatic mitral (valve) insufficiency (principal); I13.0 Hypertensive heart and chronic kidney disease with heart failure and stage 1 through stage 4 chronic kidney disease, or unspecified chronic kidney disease; I50.32 Chronic diastolic (congestive) heart failure; N18.31 Chronic kidney disease, stage 3a; Z86.711 Personal history of pulmonary embolism; Z86.73 Personal history of transient ischemic attack (TIA), and cerebral infarction without residual deficits | CPT/HCPCS: 99214 ==

== ENCOUNTER → 2024-11-01 14:02 | Outpatient (BNVA) | payer MEDICARE, OTHER, SELFPAY | PROVIDERS: PCP Family Medicine; Visit Provider Internal Medicine Rheumatology | DX: M05.79 Rheumatoid arthritis with rheumatoid factor of multiple sites without organ or systems involvement (principal); Z79.899 Other long term (current) drug therapy; Z71.89 Other specified counseling; N18.31 Chronic kidney disease, stage 3a; M81.0 Age-related osteoporosis without current pathological fracture; R06.02 Shortness of breath | CPT/HCPCS: 99214 ==

== ENCOUNTER 2024-11-15 14:47 | Outpatient (CLI) | payer MEDICARE, OTHER, SELFPAY ==
--- NOTE | 2024-11-15 15:00 | XR_ITS ---
WS: [id number] SCREENING DEXA SCAN Soccer Manager CLINICAL INFORMATION: M81.0 - Age-related osteoporosis without current patholog... COMPARISON: 2019 FINDINGS: The L1-L4 bone mineral density measures 1.066 g/cm2. This corresponds to a T score score of -0.9 and Z score of -0.4. Left forearm bone mineral density measures 0.793. This corresponds to a T score of -0.9 and Z score of 1.3. XR/XR DEXA axial skeleton* [id number] IMPRESSION: Normal bone mineralization. Bone mineral density lumbar spine increased 5.5% Bone mineral density LEFT forearm decreased -9.6%
== END 2024-11-15 14:48 | disposition home or self-care (01) ==
PROVIDERS: PCP Family Medicine; Visit Provider Internal Medicine Rheumatology
DX: M81.0 Age-related osteoporosis without current pathological fracture (principal)
CPT/HCPCS: 77080

== ENCOUNTER 2025-02-08 07:49 | Outpatient (CLI) | payer MEDICARE, OTHER, SELFPAY ==
--- NOTE | 2025-02-08 | MM_ITS ---
WS: [id number] DIAGNOSTIC BILATERAL DIGITAL BREAST TOMOSYNTHESIS MAMMOGRAPHY WITH CAD HISTORY: hx of breast ca/ yearly mammo COMPARISON: 03/23/2024, 03/20/2023, 03/13/2022 TECHNIQUE: Bilateral craniocaudad, mediolateral oblique, and mediolateral views are submitted with tomosynthesis and SM. Computer aided detection utilized. Breast composition: The breasts are heterogeneously dense, which may obscure small masses. Postoperative changes with volume loss, scarring and dystrophic calcifications upper outer quadrant RIGHT breast. Post operative changes are stable over multiple prior years with increasing dystrophic calcification. Benign calcifications LEFT breast. Scattered asymmetries. No distortion. MM/MM diag BI tomosynthesis [id number] IMPRESSION: BI-RADS: 2 - Benign FOLLOW UP: 1 Year Follow-up
== END 2025-02-08 07:50 | disposition home or self-care (01) ==
LOC: RAD 07:50
PROVIDERS: PCP Family Medicine; Visit Provider Family Medicine
DX: Z08 Encounter for follow-up examination after completed treatment for malignant neoplasm (principal); Z85.3 Personal history of malignant neoplasm of breast; R92.333 Mammographic heterogeneous density, bilateral breasts
CPT/HCPCS: 77062; G0279

== ENCOUNTER → 2025-02-14 08:22 | Outpatient (BNVA) | payer MEDICARE, OTHER, SELFPAY | PROVIDERS: PCP Family Medicine; Visit Provider Dermatology | DX: L82.1 Other seborrheic keratosis (principal); D69.2 Other nonthrombocytopenic purpura; D22.61 Melanocytic nevi of right upper limb, including shoulder; L57.8 Other skin changes due to chronic exposure to nonionizing radiation; B07.8 Other viral warts; L53.8 Other specified erythematous conditions; L29.89 Other pruritus; R20.8 Other disturbances of skin sensation; D48.5 Neoplasm of uncertain behavior of skin; L57.0 Actinic keratosis | CPT/HCPCS: 11102; 17000; 17110; 99203 ==

== ENCOUNTER → 2025-04-13 13:56 | Outpatient (BNVA) | payer MEDICARE, OTHER, SELFPAY | PROVIDERS: PCP Family Medicine; Visit Provider Internal Medicine Cardiovascular Disease | DX: I13.0 Hypertensive heart and chronic kidney disease with heart failure and stage 1 through stage 4 chronic kidney disease, or unspecified chronic kidney disease (principal); N18.9 Chronic kidney disease, unspecified; I50.30 Unspecified diastolic (congestive) heart failure; I34.0 Nonrheumatic mitral (valve) insufficiency; Z79.01 Long term (current) use of anticoagulants; Z86.73 Personal history of transient ischemic attack (TIA), and cerebral infarction without residual deficits; Z86.711 Personal history of pulmonary embolism; R06.02 Shortness of breath; R06.09 Other forms of dyspnea | CPT/HCPCS: 36415; 80048; 83880; 99214 ==

== ENCOUNTER 2025-05-02 13:13 | Outpatient (CLI) | payer MEDICARE, OTHER, SELFPAY ==
--- NOTE | 2025-05-02 13:30 | USCV_ITS ---
Corina Vasques Age: 74 Gender: F : 1950 Exam Date: 05/02/2025 13:46 Ordering Phys: Reggie Reeves MD ([email or web address]) Technologist: Exam Location: [facility] [place] Indication: sob cp BP: 120 / 78 HR: 64 Rhythm: Sinus Technical Quality: Adequate MEASUREMENTS (Male / Female) Normal Values 2D ECHO LV Diastolic Diameter PLAX 2.9 cm 4.2 - 5.9 / 3.9 - 5.3 cm IVS Diastolic Thickness 1.3 cm 0.6 - 1.0 / 0.6 - 0.9 cm IVS Systolic Thickness 1.6 cm LVPW Diastolic Thickness 1.4 cm 0.6 - 1.0 / 0.6 - 0.9 cm LVPW Systolic Thickness 1.8 cm LVOT Diameter 3.4 cm LV Ejection Fraction 2D Teich 59.1 % LV Ejection Fraction MOD 4C 64.6 % LV Ejection Fraction MOD 2C 66.5 % LV Ejection Fraction 2C AL 67.4 % RA Systolic Volume 4C AL 40.2 ml RA Systolic Volume 4C MOD 39.0 ml M-MODE LA Ao Ratio MM 1.3 AV Cusp Separation MM 1.8 cm DOPPLER AV Peak Velocity 138.0 cm/s LVOT Peak Velocity 78.0 cm/s AV Area Cont Eq vti 6.0 cm squared AV Area Cont Eq pk 5.1 cm squared MV Area PHT 4.5 cm squared Mitral E to A Ratio 1.4 TV Peak Velocity 178.5 cm/s TR Peak Velocity 269.0 cm/s TR Peak Gradient 28.9 mmHg TV Peak E Velocity 159.0 cm/s PV Peak Velocity 104.0 cm/s FINDINGS Left Ventricle Normal LV size and ejection fraction of 59%. Mild concentric left ventricular hypertrophy.no regional wall motion abnormalities. Grade I/IV diastolic dysfunction (abnormal relaxation filling pattern), normal to mildly elevated filling pressures. Right Ventricle Normal right ventricular size and systolic function. Right Atrium Normal right atrial size. Left Atrium Mildly increased left atrial size. IA Septum Appears to be intact Mitral Valve Mild mitral valve regurgitation. Aortic Valve Mild aortic valve regurgitation. Tricuspid Valve Trace tricuspid valve regurgitation. Estimated pulmonary artery peak systolic pressure 32 mmHg Pulmonic Valve Pulmonic valve not well visualized. Pericardium No pericardial effusion. Aorta Normal aortic annulus size. IVC Inferior vena cava not visualized. CONCLUSIONS Normal LV size and ejection fraction of 59%. Mild concentric left ventricular hypertrophy.no regional wall motion abnormalities. Grade I/IV diastolic dysfunction (abnormal relaxation filling pattern), normal to mildly elevated filling pressures. Mildly increased left atrial size. Normal right ventricular size and systolic function. Mild aortic valve regurgitation. Mild mitral valve regurgitation. Trace tricuspid valve regurgitation. Estimated pulmonary artery peak systolic pressure 32 mmHg. There is no pericardial effusion. There are no intracardiac masses. Compared to the study from 03/26/2023, the mitral regurgitation appears to be less severe Dr Reggie Reeves MD [facility] (Electronically Signed) Final Date: 07 May 2025 19:03 S
[2025-05-02 13:50] LABS: Hematocrit 40.3 % (36-47); Hemoglobin 13.70 g/dL (11.27-16.99); Mean Corpuscular HGB Conc 34.0 g/dL (30-55); Mean Corpuscular Hemoglobin 33.9 pg (27-33); Mean Corpuscular Volume 99.8 fl (85-98); Nucleated Red Blood Cells % 0 %; Platelet Count 153 10^3/cmm (157-399); Red Blood Count 4.04 10^6/uL (3.85-5.65); White Blood Count 7.35 10^3/uL (3.29-11.43)
[2025-05-02 14:10] LABS: Alanine Aminotransferase 38 U/L (0-33); Albumin Level 4.0 g/dL (3.5-5.2); Alkaline Phosphatase 93 U/L (35-105); Aspartate Amino Transferase 36 U/L (0-32); Globulin 2.0 g/dL (1.3-4.6); Total Protein 6.0 g/dL (6.6-8.7)
== END 2025-05-02 13:14 | disposition home or self-care (01) ==
LOC: RAD 13:16
PROVIDERS: PCP Family Medicine; Referring Provider Internal Medicine Rheumatology; Visit Provider Internal Medicine Cardiovascular Disease
DX: R06.09 Other forms of dyspnea (principal); Z79.899 Other long term (current) drug therapy; I51.7 Cardiomegaly; I51.89 Other ill-defined heart diseases; I35.1 Nonrheumatic aortic (valve) insufficiency; I34.0 Nonrheumatic mitral (valve) insufficiency; I36.1 Nonrheumatic tricuspid (valve) insufficiency
CPT/HCPCS: 36415; 80076; 82565; 85025; 85651; 86140; 93306

== ENCOUNTER → 2025-05-09 13:56 | Outpatient (BNVA) | payer MEDICARE, OTHER, SELFPAY | PROVIDERS: PCP Family Medicine; Visit Provider Internal Medicine Rheumatology | DX: M05.79 Rheumatoid arthritis with rheumatoid factor of multiple sites without organ or systems involvement (principal); Z79.899 Other long term (current) drug therapy; Z71.85 Encounter for immunization safety counseling; N18.9 Chronic kidney disease, unspecified; R06.02 Shortness of breath; Z96.642 Presence of left artificial hip joint; Z98.890 Other specified postprocedural states; Z79.01 Long term (current) use of anticoagulants | CPT/HCPCS: 99214 ==

== ENCOUNTER → 2025-05-24 10:29 | Outpatient (BNVA) | payer MEDICARE, OTHER, SELFPAY | PROVIDERS: PCP Family Medicine; Visit Provider Surgery | DX: Z12.11 Encounter for screening for malignant neoplasm of colon (principal); K21.9 Gastro-esophageal reflux disease without esophagitis; R03.0 Elevated blood-pressure reading, without diagnosis of hypertension | CPT/HCPCS: 80053; 80061; 82306; 82607; 83036; 85025; 85651; 86038; 99204 ==

== ENCOUNTER 2025-06-21 07:30 | Day surgery (SDC) | payer MEDICARE, OTHER, SELFPAY ==
[2025-06-21 07:50] VITALS: BP 134/68; PULSE 60; RESP 18; TEMP 36.3; O2SAT 98; BMI 41.9
--- NOTE | 2025-06-21 08:01 | P.HPUD_ITS ---
Surgery/Procedure H&P Update DATE OF PROCEDURE: June 21, 2025 DATE H&P PERFORMED: 05/24/25 H&P UPDATE INFORMATION: I have reviewed H&P completed within last 30 days, I have examined patient prior to procedure, No changes to prior documentation, H&P is in [facility] EMR on date indicated and Risks and benefits of the procedure reviewed PLANNED PROCEDURE: Operation Date: 06/21/25 09:05 Proposed Procedures p EGD EGD with Biopsy [id number] K21.9 Z12.11(Not Applicable) - Clint Benitez MD s Colonoscopy(Not Applicable) - Clint Benitez MD
--- NOTE | 2025-06-21 08:02 | ANES.PREANE2 ---
Pre-Anesthetic Assessment Height/Weight: Height 1.55 m Weight 100.698 kg Temp Pulse Resp BP Pulse Ox O2 Del Method 97.3 F L 60 18 134/68 98 Room Air 06/21/25 07:50 06/21/25 07:50 06/21/25 07:50 06/21/25 07:50 06/21/25 07:50 06/21/25 07:50 Operation Date: 06/21/25 09:05 Proposed Procedures p EGD EGD with Biopsy [id number] G0105 K21.9 Z12.11(Not Applicable) - Clint Benitez MD s Colonoscopy(Not Applicable) - Clint Benitez MD Last intake: Intake Last Liquid Date 06/20/25 Last Liquid Time 22:00 Last Solid Date 06/19/25 Last Solid Time 20:00 Pulmonary Sleep Apnea CV/HEM Congestive Heart Failure and Hypertension Hx multiple PEs on eliquis 05/16 echo CONCLUSIONS Normal LV size and ejection fraction of 59%. Mild concentric left ventricular hypertrophy.no regional wall motion abnormalities. Grade I/IV diastolic dysfunction (abnormal relaxation filling pattern), normal to mildly elevated filling pressures. Mildly increased left atrial size. Normal right ventricular size and systolic function. Mild aortic valve regurgitation. Mild mitral valve regurgitation. Trace tricuspid valve regurgitation. Estimated pulmonary artery peak systolic pressure 32 mmHg. There is no pericardial effusion. There are no intracardiac masses. Compared to the study from 03/26/2023, the mitral regurgitation appears to be less severe Chronic Renal Insufficiency GI Gastroesophageal Reflux Disease Metabolic Hyperlipidemia, Morbid Obesity and Thyroid Disease [facility] [place] Rheumatoid Arthritis Neuropsych TIAs Anesthetic Plan ASA status: 3 Anesthesia: MAC Risk of > 500 ml blood loss (7ml/kg in children): No Medications/Allergies Home Medications ?Medication ?Instructions ?Recorded ?Confirmed ?Last Taken ?Type furosemide 20 mg tablet 20 mg PO DAILY 08/11/19 06/21/25 06/20/25 History metoprolol tartrate 100 mg tablet 100 mg PO BID 08/11/19 06/21/25 06/21/25 History omega 2-qxp-xpn-fish oil 300 1 cap PO DAILY 08/15/19 06/21/25 06/20/25 History mg-1,000 mg capsule (Fish Oil) potassium chloride 20 mEq 20 meq PO DAILY 08/15/19 06/21/25 06/20/25 History tablet,extended release cholecalciferol (vitamin D3) 50 50 mcg PO DAILY 04/11/20 06/21/25 06/20/25 History mcg (2,000 unit) capsule levothyroxine 100 mcg tablet 100 mcg PO DAILY 06/27/20 06/21/25 06/21/25 History (Synthroid) vitamin E 268 mg (400 unit) capsule 400 unit PO BID 06/27/20 06/21/25 06/19/25 History pantoprazole 40 mg tablet,delayed 40 mg PO BID #60 tabs 06/29/20 06/21/25 06/21/25 Rx release lisinopril 2.5 mg tablet 2.5 mg PO DAILY 09/12/20 06/21/25 06/20/25 History red yeast rice 600 mg capsule 600 mg PO BID 08/21/21 06/21/25 06/20/25 History acetaminophen 650 mg 1,300 mg PO Q12H PRN Pain 03/12/23 06/21/25 06/20/25 History tablet,extended release (Tylenol Arthritis Pain) pyridoxine (vitamin B6) 100 mg 50 mg PO DAILY 03/12/23 06/21/25 06/20/25 History tablet prednisone 10 mg tablet See Rx Instructions .Route 11/30/23 06/21/25 Unknown Rx .COMPLEX PRN Shortness Of Breath #30 tabs cefdinir 300 mg capsule 300 mg PO DAILY 04/06/24 06/21/25 06/20/25 History galcanezumab-gnlm 120 mg/mL 120 mg SUBCUT .monthly #1 mL 05/30/24 06/21/25 1 Month Ago Rx subcutaneous pen injector ~05/20/25 (Emgality Pen) apixaban 5 mg tablet (Eliquis) 5 mg PO BID #60 tabs 05/09/25 06/21/25 06/18/25 Rx etanercept 50 mg/mL (1 mL) 50 mg SUBCUT .Q7days #4 mL 05/09/25 06/21/25 06/20/25 Rx subcutaneous pen injector (Enbrel SureClick) hydroxychloroquine 200 mg tablet See Rx Instructions PO .COMPLEX 05/09/25 06/21/25 06/20/25 Rx #135 tabs prednisone 2.5 mg tablet 2.5 mg PO DAILY #90 tabs 05/09/25 06/21/25 06/20/25 Rx pregabalin 200 mg capsule (Lyrica) 200 mg PO BEDTIME #90 caps 05/25/25 06/21/25 06/20/25 Rx atorvastatin 10 mg tablet (Lipitor) 10 mg PO DAILY #30 tabs 06/06/25 06/21/25 06/20/25 Rx cyanocobalamin (vitamin B-12) 1,000 mcg PO DAILY #30 tabs 06/06/25 06/21/25 06/20/25 Rx 1,000 mcg tablet (Vitamin B-12) Allergies Allergy/AdvReac Type Severity Reaction Status Date / Time azithromycin (From Zithromax) Allergy ADR-Hyperte Verified 06/21/25 07:47 nsion duloxetine (From Cymbalta) Allergy PT states Verified 06/21/25 07:47 she felt like she was having mini seizures gabapentin Allergy ADR-Fatigue Verified 06/21/25 07:47 d leflunomide Allergy numbness Verified 06/21/25 07:47 and tingling of feet naproxen Allergy edema, Verified 06/21/25 07:47 itching nifedipine (From Procardia) Allergy ADR-Hyperte Verified 06/21/25 07:47 nsion hydrocodone (From Vicodin) AdvReac itching Verified 06/21/25 07:47 [facility] Anesthesia Medical History TMJ pain dysfunction syndrome Trochanteric bursitis of right hip Migraine History of breast cancer Radiation therapy with lumpectomy - 10/2017 TIA (transient ischemic attack) COVID-19 (05/2022) CKD (chronic kidney disease) Osteopenia Osteoarthritis Hypotension Recurrent pulmonary embolism Bilateral leg edema Mitral regurgitation Elevated cholesterol Benign essential hypertension Hypothyroidism History of hip fracture High risk medication use Rheumatoid arthritis with rheumatoid factor Closed fracture of greater trochanter of left femur (06/2019) Surgical History (Updated 05/24/25 @ 10:39 by RUTH Parra) History of cholecystectomy History of repair of hiatal hernia Hx of cataract surgery 12/2018 - bilateral History of colonoscopy 01/2021 History of lumpectomy October 2017 History of hip replacement (06/2018) Fracture below replacement in 07/2019 History of hysterectomy Including bilateral ovaries History of parotid gland removal 02/2018 History of appendectomy Family History Father CAD (coronary artery disease), Onset Age: 40 Lung disease Cancer Brother Cancer Stroke Grandmother Cancer Family/Other Cancer Mother Stroke Sister CAD (coronary artery disease), Onset Age: 55 [place] Other Arthritis COPD (chronic obstructive pulmonary disease) Hypertension Denies family history of Rheumatoid arthritis Diabetes Lupus Clotting disorder Dementia Chronic kidney disease (CKD) Suicide Anesthesia complication Bleeding disorder Social History Smoking and tobacco/nicotine status: never used tobacco/nicotine Alcohol intake: never Substance/Drug Use: never Marital status: Data Anesthesia Cardiac Studies: Echocardiogram 05/02/25 Sestamibi Stress Test (Cardiology) 09/24/22
[2025-06-21 09:12] VITALS: BP 109/58; PULSE 66; RESP 16; TEMP 36.1; O2SAT 95
[2025-06-21 09:35] VITALS: BP 103/52; PULSE 60; RESP 18; O2SAT 98
--- NOTE | 2025-06-21 10:10 | ANE.PACU2 ---
Inpatient post-anesthesia follow up: Airway intact: Yes Vital signs: Temperature 97 F Pulse Rate 60 Respiratory Rate 18 Blood Pressure 103/52 Pulse Oximetry 98 Oxygen Delivery Me thod Room Air Oxygen Flow Rate Fraction of Inspir ed Oxygen Hydration adequate: Yes Nausea and vomiting: No Pain level: 1 Mental status: Baseline
== END 2025-06-21 10:12 | disposition home or self-care (01) ==
PROVIDERS: PCP Family Medicine; Visit Provider Surgery
PROC: 0DJ08ZZ Inspection of Upper Intestinal Tract, Via Natural or Artificial Opening Endoscopic (ICD-10-PCS; principal; 2025-06-21 09:05)
PROC: 0DJD8ZZ Inspection of Lower Intestinal Tract, Via Natural or Artificial Opening Endoscopic (ICD-10-PCS; CPT 45378; 2025-06-21 09:05)
DX: Z12.11 Encounter for screening for malignant neoplasm of colon (principal); K57.30 Diverticulosis of large intestine without perforation or abscess without bleeding; K63.5 Polyp of colon; K21.9 Gastro-esophageal reflux disease without esophagitis; K29.80 Duodenitis without bleeding; E03.9 Hypothyroidism, unspecified; I26.99 Other pulmonary embolism without acute cor pulmonale; I34.0 Nonrheumatic mitral (valve) insufficiency; Z86.73 Personal history of transient ischemic attack (TIA), and cerebral infarction without residual deficits; I95.9 Hypotension, unspecified; M06.9 Rheumatoid arthritis, unspecified; I13.0 Hypertensive heart and chronic kidney disease with heart failure and stage 1 through stage 4 chronic kidney disease, or unspecified chronic kidney disease; N18.9 Chronic kidney disease, unspecified; I50.9 Heart failure, unspecified; Z79.01 Long term (current) use of anticoagulants; E78.5 Hyperlipidemia, unspecified; E66.01 Morbid (severe) obesity due to excess calories; Z68.41 Body mass index [BMI] 40.0-44.9, adult
CPT/HCPCS: 43239; 45380; 45385; 88305; J2704; J3490; J7030; J9999